=== PATIENT | male | born 1955 | race Caucasian/White ===

== ENCOUNTER 2018-04-30 06:07 | Emergency (ER) | payer BC, SELFPAY ==
[2018-04-30] MEDS ORDERED: ASPIRIN 81 MG CHEWABLE TABLET ONE (06:26)
[2018-04-30 06:36] LABS: Absolute Lymphocytes (CBC) 2.2 K/uL (0.7-4.9); Absolute Monocytes 0.5 K/uL (0.1-1.3); Absolute Neutrophil 9.8 K/uL (1.8-8.0); Basophils % 0.4 % (0-1.3); Eosinophils % 0.3 % (0-4.4); Hematocrit 44.9 % (39.6-49.0); Lymphocytes % 17.5 % (15.3-44.8); MCV 97.7 fL (80-100); MPV 7.8 fL (7.6-11.3); Monocytes % 4.1 % (3.3-12.3)
[2018-04-30 06:49] LABS: Protime INR 0.93
[2018-04-30 07:01] LABS: ALT/SGPT 62 U/L (12-78); AST/SGOT 35 U/L (15-37); BUN Blood Urea Nitrogen 15 mg/dL (7-18); Bicarbonate 23 mmol/L (21-32); Glucose Level 186 mg/dL (74-106); Potassium 3.9 mmol/L (3.5-5.1); Sodium Level 135 mmol/L (136-145)
[2018-04-30] MEDS ORDERED: HYDROCODONE/APAP 10/325 TAB ONE (07:01)
[2018-04-30 07:02] LABS: Albumin 4.1 g/dL (3.4-5.0); Alkaline Phosphatase 59 U/L (45-117); Bilirubin Direct 0.2 mg/dL (0-0.2); Bilirubin Total 0.7 mg/dL (0.2-1.0); CKMB Creatine Kinase MB < 1.0 ng/mL (0.3-3.6); Creatine Phosphokinase 99 U/L (39-308); Magnesium 2.1 mg/dL (1.8-2.4); NT PRO-BNP 211 pg/mL (<125); Protein, Total 7.7 g/dL (6.4-8.2)
[2018-04-30] MEDS ORDERED: ONDANSETRON 4 MG/2 ML VIAL ONE ×2 (07:16→08:11)
[2018-04-30] MEDS ORDERED: MORPHINE 4 MG/ML SYR ONE (08:11)
[2018-04-30] MEDS ORDERED: PANTOPRAZOLE 40 MG INJ ONE (08:12)
[2018-04-30] MEDS ORDERED: NA CHLORIDE 0.9% 1,000 ML ONE (08:12)
--- NOTE | 2018-04-30 08:40 | RAD REPORT ---
EXAM DESCRIPTION: CT - Abdomen Pelvis W Contrast - 04/30/2018 8:23 am CLINICAL HISTORY: Abdominal pain. Diarrhea for 4 weeks COMPARISON: none. TECHNIQUE: Computed axial tomography of the abdomen pelvis was obtained. 100 cc Isovue-300 was admin istered intravenously. Oral contrast was not requested which limits evaluation of bowel. All CT scans are performed using dose optimization technique as appropriate and may include automated exposure control or mA/KV adjustment according to patient size. FINDINGS: The liver, spleen, pancreas, adrenal and kidneys appear unremarkable. There is no evidence of diverticulitis. Postsurgical changes of a right inguinal hernia repair are present. Small left inguinal hernia contai ns fat. Small umbilical hernia is present. A small hiatal hernia is present IMPRESSION: No acute abnormality is displayed.
--- NOTE | 2018-04-30 08:41 | RAD REPORT ---
EXAM DESCRIPTION: Janie Single View04/30/2018 6:56 am CLINICAL HISTORY: Chest pain COMPARISON: 2016 FINDINGS: The lungs appear clear of acute infiltrate. The heart is normal size IMPRESSION: No acute abnormalities displayed
--- NOTE | 2018-04-30 08:41 | RAD REPORT ---
EXAM DESCRIPTION: US - Abdomen Exam Limited - 04/30/2018 8:19 am CLINICAL HISTORY: Abdominal pain. COMPARISON: None. FINDINGS: The gallbladder wall is not thickened. A gallstone is not seen. The biliary tree is normal caliber. IMPRESSION: Unremarkable gallbladder ultrasound.
[2018-04-30] MEDS ORDERED: DIPHENHYDRAMINE 50 MG/ML VIAL ONE ×2 (08:56→09:26)
--- NOTE | 2018-04-30 10:31 | ER ---
Nurse's Notes [facility] Name: Lanre Clifton Jr Age: 63 yrs Sex: Male : 1955 Arrival Date: 04/30/2018 Time: 06:08 Bed 6 Private MD: Joe Guaman T Diagnosis: Essential (primary) hypertension;Low back pain Presentation: 04/30 06:10 Presenting complaint: Patient states: that yesterday he got overheated. Now he is fc having high bp 212/107 at home, the shakes, body cramping and overall "feeling funny". Also having some chest pain. No nausea or vomiting. Transition of care: patient was not received from another setting of care. Onset of symptoms was April 29, 2018. Risk Assessment: Do you want to hurt yourself or someone else? Patient reports no desire to harm self or others. Initial Sepsis Screen: Does the patient meet any 2 criteria? No. Patient's initial sepsis screen is negative. Does the patient have a suspected source of infection? No. Patient's initial sepsis screen is negative. Care prior to arrival: Medication(s) given: ASA, 81 mg, x 2. 06:10 Method Of Arrival: Ambulatory 06:10 Acuity: INGRID 3 fc Triage Assessment: 06:31 General: Appears uncomfortable, Behavior is cooperative, anxious. Pain: Complains of ak1 pain in back pain, chest tightness. EENT: No signs and/or symptoms were reported regarding the EENT system. Neuro: No deficits noted. Cardiovascular: Parent/caregiver reports patient has had chest tightness. Respiratory: No deficits noted. GI: No signs and/or symptoms were reported involving the gastrointestinal system. : No signs and/or symptoms were reported regarding the genitourinary system. Derm: No signs and/or symptoms reported regarding the dermatologic system. 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 Alea Chappell NP notified, no new orders given at this time. Historical: - Allergies: :23 No Known Allergies; fc - PMHx: : Hypertension; fc - PSHx: 06:23 Appendectomy; Hernia repair; hand surg; fc - Immunization history:: Last tetanus immunization: up to date. - Social history:: Smoking status: Patient/guardian denies using tobacco. - Ebola Screening: : Patient negative for fever greater than or equal to 101.5 degrees Fahrenheit, and additional compatible Ebola Virus Disease symptoms Patient denies exposure to infectious person Patient denies travel to an Ebola-affected area in the 21 days before illness onset. Screenin:22 Abuse screen: Denies threats or abuse. Nutritional screening: No deficits noted. fc Tuberculosis screening: No symptoms or risk factors identified. Fall Risk None identified. Assessment: 06:35 Reassessment: No changes from previously documented assessment. see triage assessment. ak1 07:04 Reassessment: report given to Will MARS. ak1 07:17 General: Appears in no apparent distress. uncomfortable, Behavior is calm, cooperative, jb4 appropriate for age. Pain: Complains of pain in low back area and chest Pain does not radiate. Pain currently is 8 out of 10 on a pain scale. at worst was 10 out of 10 on a pain scale. Quality of pain is described as pressure, Pain began 1 day ago. Is continuous. Neuro: Level of Consciousness is awake, alert, obeys commands, Oriented to person, place, time, situation. Cardiovascular: Reports chest pain, Heart tones S1 S2 present Patient's skin is warm and dry. Respiratory: Airway is patent Respiratory effort is even, unlabored, Respiratory pattern is regular, symmetrical, Breath sounds are clear bilaterally. GI: Abdomen is round Bowel sounds present X 4 quads. Abdomen is tender to palpation X 4 quads. : No signs and/or symptoms were reported regarding the genitourinary system. EENT: No signs and/or symptoms were reported regarding the EENT system. Derm: Skin is intact, Skin is pink, warm \\T\\ dry. Musculoskeletal: Reports pain in low back area. 07:45 Reassessment: Patient and/or family updated on plan of care and expected duration. Pain jb4 level reassessed. Patient is alert, oriented x 3, equal unlabored respirations, skin warm/dry/pink. Pt reports decrease in nausea. 08:15 Reassessment: Pt taken to ultrasound. jb4 09:05 Reassessment: Patient and/or family updated on plan of care and expected duration. Pain jb4 level reassessed. Patient is alert, oriented x 3, equal unlabored respirations, skin warm/dry/pink. Pt reports feeling better after medication administration. Patient states feeling better. 09:20 Reassessment: Patient appears in no apparent distress at this time. Patient is alert, jb4 oriented x 3, equal unlabored respirations, skin warm/dry/pink. Pt reports a decrease in pain \\T\\ itching after morphine administration. Provider notified. See MAR for orders. 09:30 Reassessment: Patient appears in no apparent distress at this time. Patient is alert, jb4 oriented x 3, equal unlabored respirations, skin warm/dry/pink. Pt reports decrease in itching after Benadryl administration. Family at the bedside. 10:30 Reassessment: Patient and/or family updated on plan of care and expected duration. Pain jb4 level reassessed. Patient is alert, oriented x 3, equal unlabored respirations, skin warm/dry/pink. Patient states feeling better. Vital Signs: 06:10 BP 188 / 139; Pulse 67; Resp 20; Temp 99.2(O); Pulse Ox 97% on R/A; Weight 97.52 kg fc (R); Height 5 ft. 11 in. (180.34 cm) (R); Pain 7/10; 06:24 BP 188 / 96; Pulse 79; Resp 12; Pulse Ox 97% on R/A; lp1 06:38 BP 142 / 79; Pulse 68; Resp 12; Pulse Ox 97% on R/A; Pain 8/10; ak1 07:17 BP 166 / 97 RA; Pulse 63; Resp 13; Pulse Ox 98% on R/A; jb4 07:17 BP 169 / 93 LA; Pulse 63; Resp 19; Pulse Ox 99% on R/A; jb4 08:35 BP 163 / 87; Pulse 74; Resp 19; Pulse Ox 96% on R/A; Pain 10/10; jb4 09:00 BP 140 / 82; Pulse 62; Resp 15; Pulse Ox 97% on R/A; Pain 6/10; jb4 10:00 BP 156 / 78; Pulse 68; Resp 15; Pulse Ox 97% on R/A; jb4 06:10 Body Mass Index 29.99 (97.52 kg, 180.34 cm) fc 06:38 pt c/o back pain 04/27 ak1 ED Course: 06:08 Patient arrived in ED. al2 06:08 Joe Guaman MD is Private Physician. al2 06:10 [facility]. kb 06:10 Nathanael Ecohls MD is Attending Physician. kb 06:10 Yulissa Mancilla, RN is Primary Nurse. ak1 06:10 Arm band placed on Patient placed in an exam room, on a stretcher. fc 06:10 Patient has correct armband on for positive identification. Bed in low position. Call fc light in reach. Side rails up X 1. child monitor on. Pulse ox on. NIBP on. 06:20 Triage completed. fc 06:23 EKG done, by ED staff, reviewed by Nathanael Echols MD. fc 06:36 No provider procedures requiring assistance completed. Missed attempt(s): 20 gauge in ak1 left antecubital area. 06:36 Initial lab(s) drawn, by ED staff, sent to lab. Inserted saline lock: 20 gauge in right ak1 antecubital area, using aseptic technique. ,using aseptic technique. placed by Den Esteban Blood collected. Patient maintains SpO2 saturation greater than 95% on room air. 06:52 X-ray completed. Portable x-ray completed in exam room. Patient tolerated procedure kw well. 06:53 XRAY Chest (1 view) In Process Unspecified. EDMS 07:16 Lanre Gallo, RN is Primary Nurse. jb4 08:05 Radiology exam delayed due to pt needs med. jg1 08:10 Patient taken to ultrasound. via wheelchair. aa4 08:19 US Abdomen Limited In Process Unspecified. EDMS 08:20 Ultrasound completed. Patient moved to CT. aa4 08:21 CT completed. Patient tolerated procedure well. Patient moved to CT via wheelchair. sj Patient moved back from CT. 08:23 CT Abd/Pelvis - W/Contrast In Process Unspecified. EDMS 10:31 Joe Guaman MD is Referral Physician. kb 10:45 IV discontinued, intact, bleeding controlled. jb4 Administered Medications: 06:22 Drug: Aspirin Chewable Tablet 162 mg Route: PO; lp1 06:58 Follow up: Response: No adverse reaction ak1 06:58 Drug: [place] 10 mg-325 mg 1 tabs Route: PO; ak1 06:58 Follow up: Response: pt informed of wait time for medication effectivness ak1 07:15 Drug: Zofran 4 mg Route: IVP; Site: right antecubital; aa5 07:45 Follow up: Response: No adverse reaction jb4 08:35 Drug: NS 0.9% 1000 ml Route: IV; Rate: 1 bolus; Site: right antecubital; jb4 09:35 Follow up: Response: No adverse reaction; IV Status: Completed infusion jb4 08:37 Drug: Zofran 4 mg Route: IVP; Site: right antecubital; jb4 09:07 Follow up: Response: No adverse reaction jb4 08:40 Drug: ProTONIX 40 mg Route: IVP; Site: right antecubital; jb4 09:06 Follow up: Response: No adverse reaction jb4 08:49 Drug: morphine 4 mg Route: IVP; Site: right antecubital; jb4 09:06 Follow up: Response: No adverse reaction jb4 08:51 Drug: Benadryl 12.5 mg Route: IVP; Site: right antecubital; jb4 09:15 Follow up: Response: No adverse reaction jb4 09:25 Drug: Benadryl 12.5 mg Route: IVP; Site: right antecubital; jb4 09:55 Follow up: Response: No adverse reaction jb4 Outcome: 10:31 Discharge ordered by . kb 10:45 Discharged to home ambulatory. jb4 10:45 Condition: stable jb4 10:45 Discharge instructions given to patient, family, Instructed on discharge instructions, follow up and referral plans. medication usage, Demonstrated understanding of instructions, follow-up care, medications, Prescriptions given X 1. 11:04 Patient left the ED. aa5 Signatures: Dispatcher [employer] EDMS Sarai Chappell, BOTTOM PRESSER-C BOTTOM PRESSER-Erinn Zuniga Susan sj Chretien, Felicia RN RN Amber Pizarro aa4 Magalie Mcpherson RN RN aa5 Mikayla Sierra Laura, RN RN lp1 Yulissa Mancilla RN RN ak1 Lanre Gallo RN RN jb4 Macie Mtz2 Corrections: (The following items were deleted from the chart) 07:28 07:17 BP 169 / 93 L Arm; jb4 jb4 07:17 BP 166 / 97 R Arm; jb4 jb4 09:00 08:39 morphine 4 mg IVP in right antecubital jb4 jb4
--- NOTE | 2018-04-30 10:31 | EDPHYS ---
Physician Documentation [facility] Name: Lanre Clifton Jr Age: 63 yrs Sex: Male : 1955 Arrival Date: 04/30/2018 Time: 06:08 Bed 6 Private MD: Joe Guaman T ED Physician Nathanael Echols HPI: 04/30 06:19 This 63 yrs old Male presents to ER via Unassigned with complaints of High kb Blood Pressure. 06:19 The patient has elevated blood pressure and discovered this at home, with a home kb device. Onset: The symptoms/episode began/occurred this morning. Associated signs and symptoms: Pertinent positives: chest pain, Pertinent negatives: dizziness, dyspnea, headache, lightheadedness, nausea, visual changes, vomiting, weakness. Severity of symptoms: At its worst the blood pressure was moderate, 212 mm Hg, in the emergency department the blood pressure is improved, 188 mm Hg. The patient has experienced a previous episode. The patient has not recently seen a physician. Pt states he got overheated at work yesterday morning and felt bad since then. Reports he was still feeling bad this morning, checked his bp and it was 212/107. 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 Pt states he feels uncomfortable throughout his whole body including his chest. PCP is Dr Guaman. Historical: - Allergies: 06:23 No Known Allergies; fc - PMHx: 06:23 Hypertension; fc - PSHx: 06:23 Appendectomy; Hernia repair; hand surg; fc - Immunization history:: Last tetanus immunization: up to date. - Social history:: Smoking status: Patient/guardian denies using tobacco. - Ebola Screening: : Patient negative for fever greater than or equal to 101.5 degrees Fahrenheit, and additional compatible Ebola Virus Disease symptoms Patient denies exposure to infectious person Patient denies travel to an Ebola-affected area in the 21 days before illness onset. ROS: 06:19 ENT: Negative for injury, pain, and discharge, Neck: Negative for injury, pain, and kb swelling, Respiratory: Negative for shortness of breath, cough, wheezing, and pleuritic chest pain, Abdomen/GI: Negative for abdominal pain, nausea, vomiting, diarrhea, and constipation, Back: Negative for injury and pain, MS/Extremity: Negative for injury and deformity, Skin: Negative for injury, rash, and discoloration, Neuro: Negative for headache, weakness, numbness, and seizure. 06:19 Constitutional: Positive for body aches, Negative for chills, fatigue, fever, malaise, poor PO intake, weight loss. 06:19 Cardiovascular: Positive for chest pain, Negative for edema, orthopnea, palpitations, paroxysmal nocturnal dyspnea. Exam: 06:19 Head/Face: Normocephalic, atraumatic. Neck: Trachea midline, no thyromegaly or masses kb palpated, and no cervical lymphadenopathy. Supple, full range of motion without nuchal rigidity, or vertebral point tenderness. No Meningismus. Chest/axilla: Normal chest wall appearance and motion. Nontender with no deformity. No lesions are appreciated. Cardiovascular: Regular rate and rhythm with a normal S1 and S2. No gallops, murmurs, or rubs. Normal PMI, no JVD. No pulse deficits. Respiratory: Lungs have equal breath sounds bilaterally, clear to auscultation and percussion. No rales, rhonchi or wheezes noted. No increased work of breathing, no retractions or nasal flaring. Abdomen/GI: Soft, non-tender, with normal bowel sounds. No distension or tympany. No guarding or rebound. No evidence of tenderness throughout. Skin: Warm, dry with normal turgor. Normal color with no rashes, no lesions, and no evidence of cellulitis. MS/ Extremity: Pulses equal, no cyanosis. Neurovascular intact. Full, normal range of motion. Neuro: Awake and alert, GCS 15, oriented to person, place, time, and situation. Cranial nerves II-XII grossly intact. Motor strength 5/5 in all extremities. Sensory grossly intact. Cerebellar exam normal. Normal gait. 06:19 Constitutional: The patient appears alert, awake, anxious. Vital Signs: 06:10 BP 188 / 139; Pulse 67; Resp 20; Temp 99.2(O); Pulse Ox 97% on R/A; Weight 97.52 kg fc (R); Height 5 ft. 11 in. (180.34 cm) (R); Pain 7/10; 06:24 BP 188 / 96; Pulse 79; Resp 12; Pulse Ox 97% on R/A; lp1 06:38 BP 142 / 79; Pulse 68; Resp 12; Pulse Ox 97% on R/A; Pain 8/10; ak1 07:17 BP 166 / 97 RA; Pulse 63; Resp 13; Pulse Ox 98% on R/A; jb4 07:17 BP 169 / 93 LA; Pulse 63; Resp 19; Pulse Ox 99% on R/A; jb4 08:35 BP 163 / 87; Pulse 74; Resp 19; Pulse Ox 96% on R/A; Pain 10/10; jb4 09:00 BP 140 / 82; Pulse 62; Resp 15; Pulse Ox 97% on R/A; Pain 6/10; jb4 10:00 BP 156 / 78; Pulse 68; Resp 15; Pulse Ox 97% on R/A; jb4 06:10 Body Mass Index 29.99 (97.52 kg, 180.34 cm) fc 06:38 pt c/o back pain 04/27 ak1 MDM: 06:10 Patient medically screened. kb 06:26 Data reviewed: vital signs, nurses notes. Data interpreted: Pulse oximetry: on room air kb is 97 %. Interpretation: normal. 06:29 ED course: Pt now reports he has chronic back pain from being trampled by a bull kb several years ago. States the pain has been worse since he stepped in a hole while he was at work yesterday and is 8/10 currently.. 07:18 ED course: Pt reports pain across upper abd and lower back. Denies any other pain. Abd kb pain started 20 minutes ago, denies having the pain when he arrived. Tenderness now noted upon palpation of upper abd. Pt described pain as a fullness, "like after you eat too much.". 08:52 ED course: Pt reports he is feeling better, pain is decreased. Getting morphine now. kb 10:28 Counseling: I had a detailed discussion with the patient and/or guardian regarding: the kb historical points, exam findings, and any diagnostic results supporting the discharge/admit diagnosis, lab results, radiology results, the need for outpatient follow up, a family practitioner, to return to the emergency department if symptoms worsen or persist or if there are any questions or concerns that arise at home. ED course: Pt reports he only has pain in his back now. Does not have any other complaints. Reports he made an appt with his PCP for tomorrow and is ready to go home. . 04/30 06:17 Order name: Basic Metabolic Panel; Complete Time: 07:05 kb 04/30 06:17 Order name: CBC with Diff; Complete Time: 06:47 kb 04/30 06:17 Order name: Ckmb; Complete Time: 07:05 kb 04/30 06:17 Order name: CPK; Complete Time: 07:05 kb 04/30 06:17 Order name: LFT's; Complete Time: 07:05 kb 04/30 06:17 Order name: Magnesium; Complete Time: 07:05 kb 04/30 06:17 Order name: NT PRO-BNP; Complete Time: 07:05 kb 04/30 06:17 Order name: PT-INR; Complete Time: 06:52 kb 04/30 06:17 Order name: Ptt, Activated; Complete Time: 06:52 kb 04/30 06:17 Order name: Troponin (emerg Dept Use Only); Complete Time: 07:00 kb 04/30 06:17 Order name: XRAY Chest (1 view); Complete Time: 08:41 kb 04/30 07:41 Order name: CT Abd/Pelvis - W/Contrast; Complete Time: 08:41 kb 04/30 07:50 Order name: Lipase; Complete Time: 08:21 sony 04/30 07:51 Order name: US Abdomen Limited; Complete Time: 08:41 sony 04/30 06:17 Order name: EKG; Complete Time: 06:19 kb 04/30 06:17 Order name: Cardiac monitoring; Complete Time: 06:24 kb 04/30 06:17 Order name: EKG - Nurse/Tech; Complete Time: 06:24 kb 04/30 06:17 Order name: IV Saline Lock; Complete Time: 06:26 kb 04/30 06:17 Order name: Labs collected and sent; Complete Time: 06:24 kb 04/30 06:17 Order name: O2 Per Protocol; Complete Time: 06:24 kb 04/30 06:17 Order name: O2 Sat Monitoring; Complete Time: 06:23 kb Administered Medications: 06:22 Drug: Aspirin Chewable Tablet 162 mg Route: PO; lp1 06:58 Follow up: Response: No adverse reaction ak1 06:58 Drug: [place] 10 mg-325 mg 1 tabs Route: PO; ak1 06:58 Follow up: Response: pt informed of wait time for medication effectivness ak1 07:15 Drug: Zofran 4 mg Route: IVP; Site: right antecubital; aa5 07:45 Follow up: Response: No adverse reaction jb4 08:35 Drug: NS 0.9% 1000 ml Route: IV; Rate: 1 bolus; Site: right antecubital; jb4 09:35 Follow up: Response: No adverse reaction; IV Status: Completed infusion jb4 08:37 Drug: Zofran 4 mg Route: IVP; Site: right antecubital; jb4 09:07 Follow up: Response: No adverse reaction jb4 08:40 Drug: ProTONIX 40 mg Route: IVP; Site: right antecubital; jb4 09:06 Follow up: Response: No adverse reaction jb4 08:49 Drug: morphine 4 mg Route: IVP; Site: right antecubital; jb4 09:06 Follow up: Response: No adverse reaction jb4 08:51 Drug: Benadryl 12.5 mg Route: IVP; Site: right antecubital; jb4 09:15 Follow up: Response: No adverse reaction jb4 09:25 Drug: Benadryl 12.5 mg Route: IVP; Site: right antecubital; jb4 09:55 Follow up: Response: No adverse reaction jb4 Disposition: 04/30/18 10:31 Discharged to Home. Impression: Essential (primary) hypertension, Low back pain. - Condition is Stable. - Discharge Instructions: Hypertension, [id number], Back Pain, Adult, [id number]. - Prescriptions for Diclofenac Sodium 75 mg Oral Tablet Sustained Release - take 1 tablet by ORAL route 2 times per day; 30 tablet. - Medication Reconciliation Form, Thank You Letter, Antibiotic Education, Prescription Opioid Use, Work release form form. - Follow up: Emergency Department; When: As needed; Reason: Worsening of condition. Follow up: Joe Guaman MD; When: Tomorrow; Reason: Recheck today's complaints, Continuance of care, Re-evaluation by your physician. Addendum: 05/03/2018 18:36 Co-signature as Attending Physician, Nathanael Echols MD. g s Signatures: Dispatcher [employer] EDSarai Reid, MASON-C REEL STRIPPER-Ezequiel Perez MD MD cha Chretien, Felicia, RN RN Maaglie Mcpherson, RN RN aa5 Anais Juarez, RN RN lp1 Yulissa Mancilla, RN RN ak1 Lanre Gallo, RN RN jb4 Nathanael Echols MD MD gs Corrections: (The following items were deleted from the chart) 04/30 06:28 06:19 Pt states he got overheated at work yesterday morning and felt bad since then. kb Reports he was still feeling bad this morning, checked his bp and it was 212/107. 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 Pt states he feels uncomfortable throughout his whole body including his chest. 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 States the pain has been worse since he was at work yesterday and is 8/10 currently.. kb 11:04 10:31 04/30/2018 10:31 Discharged to Home. Impression: Essential (primary) aa5 hypertension; Low back pain. Condition is Stable. Forms are Medication Reconciliation Form, Thank You Letter, Antibiotic Education, Prescription Opioid Use. Follow up: Emergency Department; When: As needed; Reason: Worsening of condition. Follow up: Joe Guaman; When: Tomorrow; Reason: Recheck today's complaints, Continuance of care, Re-evaluation by your physician. kb
[2018-04-30 11:13] VITALS: TEMP 99.2
[2018-04-30 11:19] VITALS: O2SAT 97
[2018-04-30 11:20] VITALS: BP 156/78
--- NOTE | 2018-04-30 12:40 | EKG ---
Test Date: 2018-04-30 Test Time: 06:19:16 Log Scaler: LISSET MEASUREMENT RESULTS: Intervals: Rate: 70 TN: 124 QRSD: 102 QT: 386 QTc: 416 [place]: P: 38 TN: 124 QRS: 62 T: 29 INTERPRETIVE STATEMENTS: Normal sinus rhythm Normal ECG Compared to ECG 09/20/2015 05:35:08 Sinus bradycardia no longer present Electronically Signed On 04-30-18 12:39:52 CDT by David Whitaker
== END 2018-04-30 11:04 | disposition home or self-care (01) ==
LOC: ER 06:07
DX: I10 Essential (primary) hypertension (principal); M54.5 Low back pain
CPT/HCPCS: 36415; 71045; 74177; 76705; 80048; 80076; 82550; 82553; 83690; 83735; 83880; 84484; 85025; 85610; 85730; 93005; 96361; 96374; 96375; 99285; C9113; J2405; J7030; Q9967

== ENCOUNTER 2019-12-03 10:17 | Emergency (ER) | payer OTHER, SELFPAY ==
[2019-12-03 13:11] LABS: Urine Blood NEGATIVE (NEG); Urine Glucose NEGATIVE (NEG); Urine Protein NEGATIVE (NEG); Urine Specific Gravity 1.025 (1.005-1.030); Urine pH 8.5 (5.0-7.0)
[2019-12-03 13:21] LABS: Urine Bacteria >50 /HPF (NONE SEEN)
[2019-12-03 13:22] LABS: Urine Amorphous Sediment 3+ /HPF (NONE SEEN); Urine Culture Reflex Order NOT NEEDED
--- NOTE | 2019-12-03 13:25 | RAD REPORT ---
EXAM DESCRIPTION: CT - Stone Protocol - 12/03/2019 1:14 pm CLINICAL HISTORY: Flank pain. FLANK PAIN COMPARISON: Abdomen Pelvis W Contrast dated 04/30/2018 TECHNIQUE: Axial images were obtained without oral or IV contrast. Lack of contrast limits solid org an and vascular assessment. The [id number] spans the entirety of the system partially obscuring uppermost abdomen and lung bases. Coronal reformatted images were obtained and reviewed. All CT scans are performed using dose optimization technique as appropriate and may include automated exposure control or mA/KV adjustment according to patient size. FINDINGS: The lower lung cantrell are clear. Imaged portions of the liver and spleen show no suspicious findings on non-contrast imaging. The panc reas and adrenal glands are normal. No pathologic lymphadenopathy in the abdomen or pelvis. No urinary tract stones or obstructive uropathy. No bowel obstruction, free air, free fluid or abscess. The appendix is not identified as a discrete s tructure, however, no secondary findings of appendicitis are identified. Bilateral fat containing ing uinal hernias, slightly larger on the left. Moderate lower lumbar spondylosis. IMPRESSION: No urinary tract stones or obstructive uropathy. Bilateral fat containing inguinal hernias, slightly larger the left.
[2019-12-03] MEDS ORDERED: KETOROLAC 30 MG/ML INJ ONE (13:40)
--- NOTE | 2019-12-03 13:54 | EDPHYS ---
Physician Documentation [facility] Name: Lanre Clifton Jr Age: 64 yrs Sex: Male : 1955 Arrival Date: 12/03/2019 Time: 10:19 Bed 17 Private MD: Joe Guaman T ED Physician Yves Orr HPI: 12/02 15:40 This 64 yrs old Male presents to ER via Ambulatory with complaints of Back kb Pain. 15:40 The patient presents with pain that is acute, with no known mechanism of injury, and kb tenderness. The symptoms are located in the left mid back. Onset: The symptoms/episode began/occurred 2 week(s) ago. The pain does not radiate. Associated signs and symptoms: Pertinent positives: foul smelling and cloudy urine. The problem was sustained without known cause. Modifying factors: The patient symptoms are alleviated by nothing, the patient symptoms are aggravated by walking. Severity of symptoms: At their worst the symptoms were moderate, in the emergency department the symptoms are unchanged. The patient has not experienced similar symptoms in the past. The patient has not recently seen a physician. Pt reports back pain that started 2 weeks ago. States "The more I work, the more it hurts". Historical: - Allergies: 11:02 No Known Allergies; ca1 - PMHx: 11:02 Hypertension; High Cholesterol; ca1 - PSHx: 11:02 Appendectomy; Hernia repair; hand surg; ca1 ROS: 15:39 Constitutional: Negative for fever, chills, and weight loss, Neck: Negative for injury, kb pain, and swelling, Cardiovascular: Negative for chest pain, palpitations, and edema, Respiratory: Negative for shortness of breath, cough, wheezing, and pleuritic chest pain, Abdomen/GI: Negative for abdominal pain, nausea, vomiting, diarrhea, and constipation, MS/Extremity: Negative for injury and deformity, Skin: Negative for injury, rash, and discoloration, Neuro: Negative for headache, weakness, numbness, tingling, and seizure. 15:39 Back: Positive for pain with movement, of the left mid back. 15:39 : Positive for foul smelling urine, cloudy urine. Exam: 15:37 Constitutional: This is a well developed, well nourished patient who is awake, alert, kb and in no acute distress. Head/Face: Normocephalic, atraumatic. Chest/axilla: Normal chest wall appearance and motion. Nontender with no deformity. No lesions are appreciated. Cardiovascular: Regular rate and rhythm with a normal S1 and S2. No gallops, murmurs, or rubs. Normal PMI, no JVD. No pulse deficits. Respiratory: Lungs have equal breath sounds bilaterally, clear to auscultation and percussion. No rales, rhonchi or wheezes noted. No increased work of breathing, no retractions or nasal flaring. Abdomen/GI: Soft, non-tender, with normal bowel sounds. No distension or tympany. No guarding or rebound. No evidence of tenderness throughout. Skin: Warm, dry with normal turgor. Normal color with no rashes, no lesions, and no evidence of cellulitis. MS/ Extremity: Pulses equal, no cyanosis. Neurovascular intact. Full, normal range of motion. Neuro: Awake and alert, GCS 15, oriented to person, place, time, and situation. Cranial nerves II-XII grossly intact. Motor strength 5/5 in all extremities. Sensory grossly intact. Cerebellar exam normal. Normal gait. 15:37 Back: pain, that is moderate, of the left mid back, ROM is painful, normal spinal alignment noted. 15:43 Neuro: Exam negative for kb Vital Signs: 11:00 BP 143 / 93; Pulse 91; Resp 15 S; Temp 98(TE); Pulse Ox 98% on R/A; Weight 94.35 kg ca1 (R); Height 5 ft. 11 in. (180.34 cm) (R); Pain 8/10; 11:00 Body Mass Index 29.01 (94.35 kg, 180.34 cm) ca1 MDM: 12:54 Patient medically screened. kb 15:37 Data reviewed: vital signs, nurses notes. Data interpreted: Pulse oximetry: on room air kb is 98 %. Interpretation: normal. Counseling: I had a detailed discussion with the patient and/or guardian regarding: the historical points, exam findings, and any diagnostic results supporting the discharge/admit diagnosis, lab results, radiology results, the need for outpatient follow up, a urologist, to return to the emergency department if symptoms worsen or persist or if there are any questions or concerns that arise at home. 12/02 12:55 Order name: Urine Microscopic Only; Complete Time: 13:24 em 12/02 12:55 Order name: Urine Culture em 12/02 12:57 Order name: Urine Dipstick--Ancillary (enter results); Complete Time: 13:14 bd 12/02 13:00 Order name: CT Stone Protocol; Complete Time: 13:28 kb 12/02 12:55 Order name: Urine Dipstick-Ancillary (obtain specimen); Complete Time: 12:55 em Administered Medications: 13:38 Drug: TORadol 30 mg Route: IM; Site: right deltoid; em 14:00 Follow up: Response: No adverse reaction; Marked relief of symptoms; Pain is decreased em 14:09 Drug: Cipro 500 mg Route: PO; em 14:15 Follow up: Response: Medication administered at discharge. em Disposition: 15:59 Co-signature as Attending Physician, Yves Orr MD. rn Disposition: 12/03/19 13:53 Discharged to Home. Impression: Urinary tract infection, site not specified, Mid back pain. - Condition is Stable. - Discharge Instructions: Musculoskeletal Pain, Urinary Tract Infection, Adult, [id number]. - Prescriptions for Cipro 500 mg Oral Tablet - take 1 tablet by ORAL route every 12 hours for 10 days; 20 tablet. Cyclobenzaprine 10 mg Oral Tablet - take 1 tablet by ORAL route every 8 hours As needed; 21 tablet. Diclofenac Sodium 75 mg Oral Tablet, Delayed Release (E.C.) - take 1 tablet by ORAL route 2 times per day As needed; 30 tablet. - Medication Reconciliation Form, Thank You Letter, Antibiotic Education, Prescription Opioid Use form. - Follow up: Emergency Department; When: As needed; Reason: Worsening of condition. Follow up: Joe Guaman MD; When: 2 - 3 days; Reason: Recheck today's complaints, Continuance of care, Re-evaluation by your physician. Follow up: Nasrin Ramey MD; When: 2 - 3 days; Reason: Recheck today's complaints. Signatures: Dispatcher [employer] Sarai Slater, IVONNE CUEVAS-Christofer Harding, RN RN em Yves Orr MD MD rn ChapincitoobKarla RN RN ca1 Corrections: (The following items were deleted from the chart) 13:53 13:53 12/03/2019 13:53 Discharged to Home. Impression: Urinary tract infection, site kb not specified. Condition is Stable. Forms are Medication Reconciliation Form, Thank You Letter, Antibiotic Education, Prescription Opioid Use. Follow up: Emergency Department; When: As needed; Reason: Worsening of condition. Follow up: Joe Guaman; When: 2 - 3 days; Reason: Recheck today's complaints, Continuance of care, Re-evaluation by your physician. kb 13:54 13:53 12/03/2019 13:53 Discharged to Home. Impression: Urinary tract infection, site kb not specified. Condition is Stable. Discharge Instructions: Urinary Tract Infection, Adult, [id number]. Prescriptions for Cipro 500 mg Oral Tablet - take 1 tablet by ORAL route every 12 hours for 10 days; 20 tablet. and Forms are Medication Reconciliation Form, Thank You Letter, Antibiotic Education, Prescription Opioid Use. Follow up: Emergency Department; When: As needed; Reason: Worsening of condition. Follow up: Joe Guaman; When: 2 - 3 days; Reason: Recheck today's complaints, Continuance of care, Re-evaluation by your physician. Follow up: Nasrin Ramey; When: 2 - 3 days; Reason: Recheck today's complaints. kb 14:22 13:54 12/03/2019 13:53 Discharged to Home. Impression: Urinary tract infection, site em not specified; Mid back pain. Condition is Stable. Discharge Instructions: Urinary Tract Infection, Adult, [id number]. Prescriptions for Cipro 500 mg Oral Tablet - take 1 tablet by ORAL route every 12 hours for 10 days; 20 tablet. and Forms are Medication Reconciliation Form, Thank You Letter, Antibiotic Education, Prescription Opioid Use. Follow up: Emergency Department; When: As needed; Reason: Worsening of condition. Follow up: Joe Guaman; When: 2 - 3 days; Reason: Recheck today's complaints, Continuance of care, Re-evaluation by your physician. Follow up: Nasrin Ramey; When: 2 - 3 days; Reason: Recheck today's complaints. kb
--- NOTE | 2019-12-03 13:54 | ER ---
Nurse's Notes [facility] Name: Lanre Clifton Jr Age: 64 yrs Sex: Male : 1955 Arrival Date: 12/03/2019 Time: 10:19 Bed 17 Private MD: Joe Guaman T Diagnosis: Urinary tract infection, site not specified;Mid back pain Presentation: 12/02 11:00 Chief complaint: Patient states: L flank pain x 2 weeks ago. Hurts more when moving and ca1 walking. Coronavirus screen: The patient has NOT traveled to a country currently being monitored by the [facility] within the last 14 days. The patient has NOT had contact with any known and/or suspected case of coronavirus. Ebola Screen: Patient negative for fever greater than or equal to 101.5 degrees Fahrenheit, and additional compatible Ebola Virus Disease symptoms Patient denies exposure to infectious person. Patient denies travel to an Ebola-affected area in the 21 days before illness onset. No symptoms or risks identified at this time. Initial Sepsis Screen: Does the patient meet any 2 criteria? No. Patient's initial sepsis screen is negative. Does the patient have a suspected source of infection? No. Patient's initial sepsis screen is negative. Risk Assessment: Do you want to hurt yourself or someone else? Patient reports no desire to harm self or others. Onset of symptoms was December 03, 2019. 11:00 Method Of Arrival: Ambulatory ca1 11:00 Acuity: INGRID 3 ca1 Historical: - Allergies: 11:02 No Known Allergies; ca1 - PMHx: 11:02 Hypertension; High Cholesterol; ca1 - PSHx: 11:02 Appendectomy; Hernia repair; hand surg; ca1 Screenin:50 Abuse screen: Denies threats or abuse. Nutritional screening: No deficits noted. em Tuberculosis screening: No symptoms or risk factors identified. Fall Risk None identified. Assessment: 12:50 General: Appears in no apparent distress. uncomfortable, Behavior is calm, cooperative, em Denies fever. Pain: Complains of pain in left mid back Pain currently is 8 out of 10 on a pain scale. Quality of pain is described as sharp, shooting, Pain began 2 weeks ago. Neuro: Level of Consciousness is awake, alert, obeys commands, Oriented to person, place, time, situation, Appropriate for age. Cardiovascular: Capillary refill < 3 seconds Patient's skin is warm and dry. Respiratory: Airway is patent Respiratory effort is even, unlabored, Respiratory pattern is regular, symmetrical. GI: Abdomen is flat, Patient currently denies nausea, vomiting. : Reports burning with urination, since 2 weeks ago. Derm: Skin is intact, is healthy with good turgor, Skin is pink, warm \T\ dry. Musculoskeletal: Capillary refill < 3 seconds, Range of motion: intact in all extremities. 14:00 Reassessment: Patient appears in no apparent distress at this time. Patient and/or em family updated on plan of care and expected duration. Pain level reassessed. Patient is alert, oriented x 3, equal unlabored respirations, skin warm/dry/pink. rates pain 7/10 Patient states feeling better. Vital Signs: 11:00 BP 143 / 93; Pulse 91; Resp 15 S; Temp 98(TE); Pulse Ox 98% on R/A; Weight 94.35 kg ca1 (R); Height 5 ft. 11 in. (180.34 cm) (R); Pain 8/10; 11:00 Body Mass Index 29.01 (94.35 kg, 180.34 cm) ca1 ED Course: 10:19 Patient arrived in ED. rg4 10:19 Joe Guaman MD is Private Physician. rg4 11:02 Triage completed. ca1 11:02 Arm band placed on right wrist. ca1 12:54 Christofer Montero, RN is Primary Nurse. em 12:54 Sar[facility] Chappell F[facility]-C [facility]. kb 12:54 Yves Orr MD is Attending Physician. kb 13:15 CT Stone Protocol In Process Unspecified. EDMS 13:53 Joe Guaman MD is Referral Physician. kb 13:53 Nasrin Ramey MD is Referral Physician. kb 14:22 No provider procedures requiring assistance completed. Patient did not have IV access em during this emergency room visit. Administered Medications: 13:38 Drug: TORadol 30 mg Route: IM; Site: right deltoid; em 14:00 Follow up: Response: No adverse reaction; Marked relief of symptoms; Pain is decreased em 14:09 Drug: Cipro 500 mg Route: PO; em 14:15 Follow up: Response: Medication administered at discharge. em Outcome: 13:53 Discharge ordered by . kb 14:22 Discharged to home ambulatory. em 14:22 Condition: good 14:22 Discharge instructions given to patient, Instructed on discharge instructions, follow up and referral plans. no drinking with medication, no driving heavy equipment, medication usage, Demonstrated understanding of instructions, follow-up care, medications, Prescriptions given X 3. 14:22 Patient left the ED. em Addendum: 12/09/2019 08:55 Addendum: Culture Results: Positive urine culture. No further action required. Bacteria s s sensitive to prescribed antibiotic. Phone call Attempt #1 Called and spoke with patient who reports he is feeling much better. Has followed up with his PCP already and states that his symptoms have improved greatly. Signatures: Dispatcher [employer] Sarai Slater, [employer] DEF[employer] OFFICER-C [employer] CONTROL OFFICER-Christofer Harding, RN RN Willow Edwards, Chuyita Liang RN rg4 Karla Morrison RN RN ca1
[2019-12-03] MEDS ORDERED: CIPROFLOXACIN HCL 500 MG TAB ONE (14:16)
== END 2019-12-03 14:22 | disposition home or self-care (01) ==
LOC: ER 10:17
DX: N39.0 Urinary tract infection, site not specified (principal); M54.89 Other dorsalgia
CPT/HCPCS: 74176; 76377; 81003; 81015; 87077; 87086; 87088; 87186; 96372; 99283

== ENCOUNTER 2021-04-15 16:32 | Emergency (ER) | payer OTHER ==
[2021-04-15] MEDS ORDERED: FENTANYL CITR 100 MCG/2 ML ONE ×2 (17:15→18:26)
[2021-04-15] MEDS ORDERED: ONDANSETRON 4 MG/2 ML VIAL ONE (17:16)
[2021-04-15 17:30] LABS: Absolute Lymphocytes (CBC) 2.2 K/uL (0.7-4.9); Basophils % 0.9 % (0-1.3); Hematocrit 39.2 % (39.6-49.0); Lymphocytes % 25.8 % (15.3-44.8); RBC Red Blood Cell Count 4.03 M/uL (4.33-5.43)
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
[2021-04-15] MEDS ORDERED: NA CHLORIDE 0.9% 1,000 ML ONE (17:32)
[2021-04-15 17:34] LABS: ALT/SGPT 53 U/L (12-78); AST/SGOT 29 U/L (15-37); Albumin 3.7 g/dL (3.4-5.0); Alkaline Phosphatase 57 U/L (45-117); BUN Blood Urea Nitrogen 13 mg/dL (7-18); Bicarbonate 26 mmol/L (21-32); Bilirubin Direct 0.2 mg/dL (0-0.2); Bilirubin Total 0.5 mg/dL (0.2-1.0); Glucose Level 107 mg/dL (74-106); NT PRO-BNP 34 pg/mL (<125); Potassium 4.2 mmol/L (3.5-5.1); Protein, Total 7.6 g/dL (6.4-8.2); Sodium Level 140 mmol/L (136-145); Troponin (Emerg Dept Use Only) < 0.02 ng/mL (0.0-0.045)
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
--- NOTE | 2021-04-15 17:34 | RAD REPORT ---
EXAM DESCRIPTION: RAD - Chest Single View - 04/15/2021 5:13 pm CLINICAL HISTORY: COUGH COMPARISON: Chest Single View dated 04/30/2018; CHEST PA AND LAT 2 VIEW dated 09/19/2015; CHEST SINGLE VIEW dated 02/13/2014; CHEST PA AND LAT 2 VIEW dated 04/26/2009 FINDINGS: No evidence of edema or pneumonia. The heart size is within normal limits.No acute osseous abnormality. No significant pleural effusions or pneumothorax. IMPRESSION: No acute cardiopulmonary disease.
[2021-04-15 17:37] LABS: Protime INR 0.94
--- NOTE | 2021-04-15 17:47 | RAD REPORT ---
EXAM DESCRIPTION: CT - Head C Spine Cap W Con - 04/15/2021 5:29 pm COMPARISON: None. TECHNIQUE: Axial [address] head images were obtained. Axial [address] cervical spine images were obtaine d with sagittal and coronal reconstruction images reviewed. During dynamic enhancement of 100mL non-i onic contrast, axial 5 mm images of the chest, abdomen and pelvis were obtained. All CT scans are performed using dose optimization technique as appropriate and may include automated exposure control or mA/KV adjustment according to patient size. FINDINGS: No intracranial hemorrhage, mass or edema. No midline shift or abnormal fluid collection. No skull fracture. No fracture or traumatic malalignment of the cervical spine. Multilevel cervical spondylosis with jose jose degrees of neural foraminal narrowing. Vertebral body heights are maintained. No definite centra l spinal stenosis. CT chest shows no pneumothorax, pulmonary contusion or pleural fluid collection. No mediastinal hemat raghav and the aorta and pulmonary arteries are unremarkable. No chest will mass or abnormal axillary fi nding. No displaced rib fracture or other significant bony finding. Scattered coronary artery calcif ications. CT abdomen and pelvis show no injury to solid abdominal viscera. Gallbladder and biliary tree are unr emarkable. No bowel injury or significant finding. No free air, free fluid or abnormal stranding. No urinary bladder abnormality. Subcentimeter left renal lesion which is statistically benign. Remote left-sided rib fractures. Fat containing left inguinal hernia. Prior right inguinal hernia rep air. IMPRESSION: No significant CT Head finding. No acute fracture or traumatic malalignment cervical spine. No evidence of significant trauma to the chest, abdomen, or pelvis.
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
[2021-04-15] MEDS ORDERED: KETOROLAC 30 MG/ML INJ ONE (18:26)
[2021-04-15 18:54] LABS: White Blood Cell Scan OK (OK)
[2021-04-15 18:55] LABS: Blood Morphology Comment NOT SEEN (NOT SEEN); Platelet Estimate ADEQ
[2021-04-16 01:14] VITALS: TEMP 98.9
[2021-04-16 01:16] VITALS: BP 129/83; O2SAT 99
== END 2021-04-15 18:41 | disposition home or self-care (01) ==
LOC: ER 16:32
DX: S16.1XXA Strain of muscle, fascia and tendon at neck level, initial encounter (principal); S70.02XA Contusion of left hip, initial encounter; V02.99XA Pedestrian with other conveyance injured in collision with two- or three-wheeled motor vehicle, unspecified whether traffic or nontraffic accident, initial encounter; I10 Essential (primary) hypertension
CPT/HCPCS: 85025; 80048; 36415; 83735; 85610; 80076; 84484; 83880; 70450; 72125; 71260; 74177; 71045; 72170; 73502; 73552; 96375; 96374; 99285; Q9967; J3010 ×2; J7030; J2405; G0390

== ENCOUNTER 2023-02-09 01:20 | Emergency (ER) | payer OTHER ==
--- OUTSIDE RECORDS SUMMARY | 2023-02-09 01:35 | XMS REPORT | Continuity of Care Document ---
:1955 Author Organization [facility] t Address [address] [facility] [address] [place] [id number] Care Team Providers Name Role Phone Unavailable Unavailable Unavailable Payers Payer Name Policy Type Policy Number Effective Date Expiration Date S [facility] 2022 (MEDICARE 00:00:00 REPLACEMENT HMO) Problems This patient has no known problems. Allergies, Adverse Reactions, Alerts This patient has no known allergies or adverse reactions. Medications This patient has no known medications. Procedures This patient has no known procedures. Encounters Start End Encounter Admission Attending Care Care Encounter Source Date/Time Date/Time Type Type Clinicians Facility Department ID 2022-07-27 2022-07-27 Outpatient [facility] [id number] [facility] 00:00:00 00:00:00 [id number] [facility] Results This patient has no known results.
[2023-02-09] MEDS ORDERED: MORPHINE 4 MG/ML SYR ONE (02:04)
[2023-02-09] MEDS ORDERED: ONDANSETRON 4 MG/2 ML VIAL ONE (02:04)
[2023-02-09 02:11] LABS: Protime INR 0.92
[2023-02-09 02:12] LABS: Absolute Lymphocytes (CBC) 4.5 K/uL (0.7-4.9); Hematocrit 45.4 % (39.6-49.0); Lymphocytes % 35.3 % (15.3-44.8); MCV 95.6 fL (80-100); MPV 7.6 fL (7.6-11.3); RBC Red Blood Cell Count 4.75 M/uL (4.33-5.43)
[2023-02-09 02:26] LABS: Bilirubin Direct 0.2 mg/dL (0-0.2); Bilirubin Indirect, Calculated 0.7 mg/dL (0.2-0.8); Bilirubin Total 0.9 mg/dL (0.2-1.0); Potassium 3.9 mEq/L (3.5-5.1); Protein, Total 8.1 g/dL (6.4-8.2); Troponin High Sensitivity 7.9 pg/mL (<58.9)
[2023-02-09] MEDS ORDERED: HYDROMORPHONE HCL 1 MG/ML INJ ONE ×2 (03:03→04:43)
[2023-02-09] MEDS ORDERED: KETOROLAC 30 MG/ML INJ ONE (03:33)
[2023-02-09 04:13] LABS: Urine Bacteria None Seen /HPF (<20); Urine Bilirubin NEGATIVE (Negative); Urine Blood Negative (Negative); Urine Clarity Clear (Clear); Urine Color Light-Yellow (Yellow); Urine Glucose NEGATIVE (Negative); Urine Mucus Slight /HPF (None Seen); Urine Protein TRACE (Negative); Urine RBC None Seen /HPF (None Seen); Urine Urobilinogen Normal (Normal); Urine pH 7.5 (5.0-7.0)
[2023-02-09 04:15] LABS: Specific Gravity > 1.035 (1.005-1.030)
[2023-02-09] MEDS ORDERED: PROMETHAZINE INJ 25 MG/ML AMP ONE (04:15)
--- NOTE | 2023-02-09 04:35 | EDPHYS ---
Physician Documentation [facility] Name: Lanre Clifton Jr Age: 67 yrs Sex: Male : 1955 Arrival Date: 02/09/2023 Time: 01:20 Bed 7 Private MD: ED Physician Pato Yin HPI: 02/09 02:41 This 67 yrs old Male presents to ER via Ambulatory with complaints of Chest Pain, sp3 Weakness, Dizziness, Breathing Difficulty. 02:41 59-year-old male with history of hypertension, hyperlipidemia, chronic back pain sp3 secondary to prior injury now presents with left-sided posterior flank and back pain along with numbness in his jaw and left upper extremity. Patient states that this pain is different in pattern and intensity. Denies any new trauma, anterior chest pain, anterior abdominal pain, fever, syncope, near syncope, any other neurological deficits, vomiting, diarrhea, bleeding, headache or any other signs or symptoms on ROS at this time. Pain started suddenly approximately 6 to 8 hours ago.. Historical: - Allergies: 01:57 No Known Allergies; vc1 - Home Meds: 01:57 pantoprazole 40 mg oral tablet, delayed release (enteric coated) every morning vc1 [Active]; cyclobenzaprine 10 mg Oral tablet once daily at bedtime [Active]; quetiapine 400 mg oral Tablet, Extended Release 24 hr every day at bedtime [Active]; - PMHx: 01:57 Hypertensive disorder; Hypercholesterolemia; Chronic back pain; vc1 - PSHx: 01:57 None; vc1 - Immunization history:: Client reports receiving the 2nd dose of the Covid vaccine. - Social history:: Smoking status: Patient denies any tobacco usage or history of. ROS: 02:42 Constitutional: Negative for fever, chills, and weight loss, Eyes: Negative for injury, sp3 pain, redness, and discharge, ENT: Negative for injury, pain, and discharge, Neck: Negative for injury, pain, and swelling, Cardiovascular: Negative for chest pain, palpitations, and edema, Respiratory: Negative for shortness of breath, cough, wheezing, and pleuritic chest pain, MS/Extremity: Negative for injury and deformity, Skin: Negative for injury, rash, and discoloration, Psych: Negative for depression, anxiety, suicide ideation, homicidal ideation, and hallucinations, Allergy/Immunology: Negative for hives, rash, and allergies, Endocrine: Negative for neck swelling, polydipsia, polyuria, polyphagia, and marked weight changes. 02:42 All other systems are negative. Exam: 02:42 Constitutional: This is a well developed, well nourished patient who is awake, alert, sp3 and in no acute distress. Head/Face: Normocephalic, atraumatic. Eyes: Pupils equal round and reactive to light, extra-ocular motions intact. Lids and lashes normal. Conjunctiva and sclera are non-icteric and not injected. Cornea within normal limits. Periorbital areas with no swelling, redness, or edema. Neck: Trachea midline, no thyromegaly or masses palpated, and no cervical lymphadenopathy. Supple, full range of motion without nuchal rigidity, or vertebral point tenderness. No Meningismus. Chest/axilla: Normal chest wall appearance and motion. Nontender with no deformity. No lesions are appreciated. Cardiovascular: Regular rate and rhythm with a normal S1 and S2. No gallops, murmurs, or rubs. Normal PMI, no JVD. No pulse deficits. Respiratory: Lungs have equal breath sounds bilaterally, clear to auscultation and percussion. No rales, rhonchi or wheezes noted. No increased work of breathing, no retractions or nasal flaring. Abdomen/GI: Soft, non-tender, with normal bowel sounds. No distension or tympany. No guarding or rebound. No evidence of tenderness throughout. Back: No spinal tenderness. No costovertebral tenderness. Full range of motion. Skin: Warm, dry with normal turgor. Normal color with no rashes, no lesions, and no evidence of cellulitis. 02:42 Neuro: Normal neurological exam however patient has subjective numbness on the left upper extremity and jaw/tongue. Two-point discrimination is normal. Gait not tested. Cranial nerves II through XII are normal. Mentation and mental status are normal.. Vital Signs: 01:33 BP 187 / 89; Pulse 96; Resp 25; Pulse Ox 99% ; Weight 95.25 kg; Height 5 ft. 11 in. ; vc1 Pain 10/10; 02:47 BP 183 / 83; kl 03:16 BP 172 / 85; Pulse 86; Resp 22; Pulse Ox 95% on R/A; Pain 10/10; kl 04:12 BP 173 / 102; Pulse 85; Resp 20; Pulse Ox 99% on R/A; kl 04:53 BP 168 / 97; Pulse 70; Resp 20; Temp 99; Pulse Ox 99% on R/A; kl 01:33 Body Mass Index 29.29 (95.25 kg, 180.34 cm) vc1 01:33 Pain Scale: Adult vc1 03:16 Pain Scale: Adult kl MDM: 02:08 Patient medically screened. sp3 02:43 Data reviewed: vital signs, nurses notes, lab test result(s), EKG, radiologic studies. sp3 ED course: 67-year-old male with hypertension and chronic back pain now presents with acute on chronic left-sided back pain with mild neurological symptoms. Differential diagnosis includes exacerbation of prior pain, aortic dissection, musculoskeletal pain, among others. I am not highly suspicious for sepsis, shock, CVA, GA, intestinal pathology, kidney stone, other pathology, or any other critical illness at this time. Will obtain CT scan of the chest and the dissection protocol, EKG, laboratory work and administer Dilaudid and Zofran as needed. Disposition pending patient work-up and patient course with possible admission versus discharge.. 04:17 ED course: All laboratory values and scans are normal including CTA. There is no sp3 evidence of acute aneurysm, dissection, or PE. Patient is still having nausea and mild vomiting for which we will add promethazine. Given normal work-up, we will safely discharge patient home once he is feeling better. CT scan of the head will also be reviewed.. 02/09 01:33 Order name: Basic Metabolic Panel; Complete Time: 04:16 02/09 01:33 Order name: CBC with Diff; Complete Time: 03:23 02/09 01:33 Order name: LFT's; Complete Time: 04:16 02/09 01:33 Order name: Magnesium; Complete Time: 04:16 02/09 01:33 Order name: NT PRO-BNP; Complete Time: 04:16 02/09 01:33 Order name: PT-INR; Complete Time: 03:23 02/09 01:33 Order name: Troponin HS; Complete Time: 04:16 02/09 02:49 Order name: CREATININE WHOLE BLOOD; Complete Time: 03:23 EDMS 02/09 03:30 Order name: UAM; Complete Time: 04:16 02/09 04:04 Order name: Lipase; Complete Time: 04:16 EDMS 02/09 01:33 Order name: XRAY Chest (1 view) 3 02/09 02:16 Order name: Angio Aorta For Dissection EDMS 02/09 02:50 Order name: CT Head Brain wo Cont sp3 02/09 01:33 Order name: EKG; Complete Time: 01:34 sp3 02/09 01:33 Order name: Cardiac monitoring; Complete Time: 01:52 3 02/09 01:33 Order name: EKG - Nurse/Tech; Complete Time: 01:48 3 02/09 01:33 Order name: IV Saline Lock; Complete Time: 01:52 sp3 02/09 01:33 Order name: Labs collected and sent; Complete Time: 01:52 3 02/09 01:33 Order name: O2 Per Protocol; Complete Time: 01:52 3 02/09 01:33 Order name: O2 Sat Monitoring; Complete Time: 01:52 3 Administered Medications: 02:04 Drug: morphine IVP or IV 4 mg Route: IVP; Infused Over: 4 mins; Site: right antecubital;kl 04:14 Follow up: Response: No adverse reaction; No change in condition kl 02:04 Drug: Ondansetron IVP 4 mg Route: IVP; Site: right antecubital; kl 04:15 Follow up: Response: No adverse reaction; No change in condition kl 02:58 Drug: HYDROmorphone IVP 1 mg Route: IVP; Site: right antecubital; kl 03:16 Follow up: Response: No change in condition kl 03:29 Drug: Ketorolac IVP 15 mg Route: IVP; Site: right antecubital; kl 04:14 Follow up: Response: No adverse reaction; No change in condition kl 04:10 Drug: Promethazine IVP 25 mg Route: IVP; Site: right antecubital; kl 04:40 Drug: HYDROmorphone IVP 1 mg Route: IVP; Site: right antecubital; kl 04:55 Follow up: Response: No adverse reaction; Marked relief of symptoms kl Disposition Summary: 02/09/23 04:34 Discharge Ordered Location: Home sp3 Condition: Stable sp3 Diagnosis - Chronic back pain sp3 Followup: sp3 - With: Private Physician - When: Upon discharge from the Emergency Department - Reason: Continuance of care Discharge Instructions: - Discharge Summary Sheet sp3 - Chronic Back Pain sp3 Forms: - Medication Reconciliation Form sp3 - Thank You Letter sp3 - Antibiotic Education sp3 - Prescription Opioid Use sp3 Signatures: Dispatcher [employer] EDMS Grace Johnston RN RN kl [place], COURT USHER-C [address] USHER-Cla1 Pato Yin MD MD sp3 Kathy Bertrand RN RN vc1 Corrections: (The following items were deleted from the chart) 02:16 02:08 Chest Angio+CT.RAD.BRZ ordered. EDMS EDMS 04:03 03:24 LIPASE+C.LAB.BRZ ordered. EDMS EDMS
--- NOTE | 2023-02-09 04:35 | ER ---
Nurse's Notes [facility] Name: Lanre Clifton Jr Age: 67 yrs Sex: Male : 1955 Arrival Date: 02/09/2023 Time: 01:20 Bed 7 Private MD: Diagnosis: Chronic back pain Presentation: 02/09 01:33 Chief complaint: Patient states: I started having chest pain that goes all the way to vc1 my back and down. It's been happening all evening and I just don't feel right. Coronavirus screen: Vaccine status: Patient reports receiving the 2nd dose of the covid vaccine. [employer] Client denies travel out of the [place] in the last 14 days. At this time, the client does not indicate any symptoms associated with coronavirus-19. :33 Method Of Arrival: Ambulatory vc1 01:33 Ebola Screen: Patient negative for fever greater than or equal to 101.5 degrees vc1 Fahrenheit, and additional compatible Ebola Virus Disease symptoms Patient denies exposure to infectious person. Patient denies travel to an Ebola-affected area in the 21 days before illness onset. No symptoms or risks identified at this time. Initial Sepsis Screen: Does the patient meet any 2 criteria? RR > 20 per min. HR > 90 bpm. Yes Does the patient have a suspected source of infection? No. Patient's initial sepsis screen is negative. Risk Assessment: Do you want to hurt yourself or someone else? Patient reports no desire to harm self or others. Onset of symptoms was February 08, 2023 at 17:00. 01:33 Acuity: INGRID 2 vc1 Triage Assessment: 02:04 General: Appears distressed, uncomfortable, Behavior is anxious. Pain: Complains of vc1 pain in anterior aspect of left upper chest and left breast Pain radiates to right mid back and right low back Pain currently is 10 out of 10 on a pain scale. Quality of pain is described as sharp, Pain began 6 hours ago. EENT: No deficits noted. No signs and/or symptoms were reported regarding the EENT system. Neuro: Level of Consciousness is awake, alert, obeys commands, Oriented to person, place, time, situation, Appropriate for age. Cardiovascular: Reports chest pain, Chest pain is described as "worst pain of my life", quality is sharp. Respiratory: Airway is patent Respiratory effort is even, unlabored, Respiratory pattern is symmetrical, tachypnea. GI: No deficits noted. No signs and/or symptoms were reported involving the gastrointestinal system. : No deficits noted. No signs and/or symptoms were reported regarding the genitourinary system. Derm: No deficits noted. No signs and/or symptoms reported regarding the dermatologic system. Musculoskeletal: No deficits noted. No signs and/or symptoms reported regarding the musculoskeletal system. Historical: - Allergies: : No Known Allergies; vc1 - Home Meds: : pantoprazole 40 mg oral tablet, delayed release (enteric coated) every morning vc1 [Active]; cyclobenzaprine 10 mg Oral tablet once daily at bedtime [Active]; quetiapine 400 mg oral Tablet, Extended Release 24 hr every day at bedtime [Active]; - PMHx: :57 Hypertensive disorder; Hypercholesterolemia; Chronic back pain; vc1 - PSHx: : None; vc1 - Immunization history:: Client reports receiving the 2nd dose of the Covid vaccine. - Social history:: Smoking status: Patient denies any tobacco usage or history of. Screenin:[address] [facility] ED Fall Risk Assessment (Adult) History of falling in the last 3 months, vc1 including since admission No falls in past 3 months (0 pts) Confusion or Disorientation No (0 pts) Intoxicated or Sedated No (0 pts) Impaired Gait Yes (1 pt) Mobility Assist Device Used No (0 pt) Altered Elimination No (0 pt) Score/Fall Risk Level 0 - 2 = Low Risk Oriented to surroundings, Maintained a safe environment, Educated pt \\T\\ family on fall prevention, incl call for assistance when getting out of bed. Abuse screen: Denies threats or abuse. Nutritional screening: No deficits noted. Tuberculosis screening: No symptoms or risk factors identified. Assessment: 03:17 General: Appears distressed, uncomfortable, Behavior is anxious. Pain: Complains of kl pain in back and right mid back and chest Pain currently is 10 out of 10 on a pain scale. Pain: Quality of pain is described as aching, sharp. Neuro: No deficits noted. Cardiovascular: Rhythm is sinus rhythm. Respiratory: Airway is patent Trachea midline. GI: Reports bloating, nausea. : No deficits noted. No signs and/or symptoms were reported regarding the genitourinary system. EENT: No deficits noted. No signs and/or symptoms were reported regarding the EENT system. 04:11 Reassessment: pt continues to c/o pain actively vomiting MD notified pt medicated per order. Vital Signs: 01:33 BP 187 / 89; Pulse 96; Resp 25; Pulse Ox 99% ; Weight 95.25 kg; Height 5 ft. 11 in. ; vc1 Pain 10/10; 02:47 BP 183 / 83; kl 03:16 BP 172 / 85; Pulse 86; Resp 22; Pulse Ox 95% on R/A; Pain 10/10; kl 04:12 BP 173 / 102; Pulse 85; Resp 20; Pulse Ox 99% on R/A; kl 04:53 BP 168 / 97; Pulse 70; Resp 20; Temp 99; Pulse Ox 99% on R/A; kl 01:33 Body Mass Index 29.29 (95.25 kg, 180.34 cm) vc1 01:33 Pain Scale: Adult vc1 03:16 Pain Scale: Adult Vitals: 02:05 The patient's bilateral blood pressures are equal. ED Course: 01:21 Patient arrived in ED. ja2 01:33 Pato Yin MD is Attending Physician. sp3 01:50 Inserted saline lock: 20 gauge in right antecubital area, using aseptic technique. Blood collected. IV discontinued, intact, bleeding controlled, No redness/swelling at site. Pressure dressing applied. Patient maintains SpO2 saturation greater than 95% on room air. 01:52 Basic Metabolic Panel Sent. kl 01:52 CBC with Diff Sent. kl 01:52 LFT's Sent. kl 01:52 Magnesium Sent. kl 01:52 NT PRO-BNP Sent. kl 01:52 PT-INR Sent. kl 01:52 Troponin HS Sent. kl 01:57 Triage completed. vc1 02:05 Troponin HS Sent. kl 02:05 PT-INR Sent. kl 02:05 NT PRO-BNP Sent. kl 02:05 Magnesium Sent. kl 02:05 LFT's Sent. kl 02:05 CBC with Diff Sent. kl 02:05 Basic Metabolic Panel Sent. kl 02:06 Arm band placed on left wrist. vc1 02:07 Patient has correct armband on for positive identification. Bed in low position. Call vc1 light in reach. Client placed on continuous cardiac and pulse oximetry monitoring. NIBP monitoring applied. 02:08 XRAY Chest (1 view) In Process Unspecified. EDMS 02:51 Angio Aorta For Dissection In Process Unspecified. EDMS 03:10 CT Head Brain wo Cont In Process Unspecified. EDMS 03:36 UAM Sent. kl 04:54 No provider procedures requiring assistance completed. kl 04:55 IV discontinued, intact, bleeding controlled, No redness/swelling at site. Pressure kl dressing applied. Administered Medications: 02:04 Drug: morphine IVP or IV 4 mg Route: IVP; Infused Over: 4 mins; Site: right antecubital;kl 04:14 Follow up: Response: No adverse reaction; No change in condition kl 02:04 Drug: Ondansetron IVP 4 mg Route: IVP; Site: right antecubital; kl 04:15 Follow up: Response: No adverse reaction; No change in condition kl 02:58 Drug: HYDROmorphone IVP 1 mg Route: IVP; Site: right antecubital; kl 03:16 Follow up: Response: No change in condition kl 03:29 Drug: Ketorolac IVP 15 mg Route: IVP; Site: right antecubital; kl 04:14 Follow up: Response: No adverse reaction; No change in condition kl 04:10 Drug: Promethazine IVP 25 mg Route: IVP; Site: right antecubital; kl 04:40 Drug: HYDROmorphone IVP 1 mg Route: IVP; Site: right antecubital; kl 04:55 Follow up: Response: No adverse reaction; Marked relief of symptoms kl Medication: 02:07 VIS not applicable for this client. vc1 Outcome: 04:34 Discharge ordered by . sp3 04:55 Discharged to home ambulatory, with family. kl 04:55 Condition: improved 04:55 Discharge instructions given to patient, Instructed on discharge instructions, follow up and referral plans. Demonstrated understanding of instructions, follow-up care. 04:55 Patient left the ED. kl Signatures: Dispatcher [employer] EDGrace Cardona, RN RN Pato Merino MD MD sp3 Erinn Grimaldo Vanessa RN RN vc1 Corrections: (The following items were deleted from the chart) 04:03 03:36 LIPASE+C.LAB.BRZ drawn and sent. kl EDMS
[2023-02-09 05:23] VITALS: O2SAT 99
[2023-02-09 05:24] VITALS: BP 168/97; TEMP 99
--- NOTE | 2023-02-09 05:32 | EKG ---
Test Date: 2023-02-09 Test Time: 01:29:35 Paste Maker: DANNY MEASUREMENT RESULTS: Intervals: Rate: 87 OK: 110 QRSD: 98 QT: 356 QTc: 428 [place]: P: 48 OK: 110 QRS: 62 T: 52 INTERPRETIVE STATEMENTS: Sinus rhythm with short OK Otherwise normal ECG Compared to ECG 04/30/2018 06:19:16 Short OK interval now present Electronically Signed On 02-09-23 05:32:07 CDT by Quintin Jenkins
--- NOTE | 2023-02-09 21:55 | RAD REPORT ---
EXAM DESCRIPTION: RAD - Chest Single View - 02/09/2023 2:06 am CLINICAL HISTORY: 67 years, Male, CHEST PAIN COMPARISON: None FINDINGS: Single view of the chest was obtained portable. No prior films are available for compariso n. The cardiomediastinal silhouette demonstrate to be unremarkable. The heart is not enlarged. The th oracic aorta is unremarkable. The pulmonary vasculature is normal distribution. Costophrenic angles a re sharp. No areas of consolidation or masses are seen. The rest of the soft tissue and bony stru ctures demonstrate to be unremarkable. IMPRESSION: No acute cardiopulmonary abnormality is seen. Electronically signed by: Pratik Gan MD 02/09/2023 2:34 AM CDT Due to temporary technical issues with the PACS/Fluency reporting system, reports are being signed by the in house radiologists without review as a courtesy to insure prompt reporting. The interpreting radiologist is fully responsible for the content of the report.
--- NOTE | 2023-02-09 21:59 | RAD REPORT ---
EXAM DESCRIPTION: CT - Head Brain Wo Cont - 02/09/2023 7:04 am CLINICAL HISTORY: 67 years, Male, headache, facial numbness COMPARISON: 04/15/2021 FINDINGS: Multiple transaxial tomograms of the brain were obtained from the base of the skull to the vertex without contrast. 2-D multiplanar reformats and the coronal and sagittal plane were performed and reviewed. This exam was performed according to our departmental dose-optimization protocol, which includes auto mated exposure control, adjustment of the mA and/or kV according to patient size and/or use of iterat pallavi reconstruction technique. Noted is the presence of the high density material within the arterial system and falx cerebri and te ntorium highly suggestive of previous/recent iodine study. Brain parenchyma as well as the zamora and white matter differentiation demonstrate to be unremarkable. There is no midline shift and/or mass effect. There is no evidence for acute hemorrhage. There are n o focal areas of hypodensities. Lateral ventricles and cisterns displace normal appearance. No intr a or extra axial fluid collections were seen. The calvarium is intact with no evidence for fracture. The visualized portions of the paranasal sinuses and orbits demonstrate to be clear. No evidence for abnormal enhancement. IMPRESSION: No evidence for acute hemorrhage. High density material within the arterial system and falx cerebri and tentorium highly suggestive of recent iodine study. Electronically signed by: Pratik Gan MD 02/09/2023 3:24 AM CDT Due to temporary technical issues with the PACS/Fluency reporting system, reports are being signed by the in house radiologists without review as a courtesy to insure prompt reporting. The interpreting radiologist is fully responsible for the content of the report.
--- NOTE | 2023-02-09 22:03 | RAD REPORT ---
EXAM DESCRIPTION: CT - Angio Aorta For Dissection - 02/09/2023 7:04 am CLINICAL HISTORY: 67 years Male CHEST, ABD, AND BACK PAIN TECHNIQUE: Following the administration of intravenous contrast, multiple high-resolution axial imag es of the chest, abdomen and pelvis were performed followed by sagittal and coronal reconstructed jane ges. Coronal and sagittal MIP images were also performed.The CT study is performed according to ALARA (as low as reasonably achievable) or ALARA/IMAGE GENTLY, with automatic adjustment of mA and/or kV a ccording to patient size. Performed on: 02/09/2023 at 2:41 AM COMPARISON: CT chest, abdomen and pelvis performed on 04/15/2021 FINDINGS: CTA CHEST: There is satisfactory visualization and contrast opacification of pulmonary arteries. No definite i ntra-arterial filling defects are identified to suggest acute or chronic pulmonary embolism. The thor acic aorta is normal in caliber and contour without evidence of aneurysm or dissection. The lungs are well expanded and are clear. There is no evidence of a pneumothorax. There are no pleur al effusions. The central airways are patent. The heart is normal in size. There is no pericardial effusion. There is no evidence of hilar, mediastinal or axillary lymphadenopathy. There is a calcified right pa ratracheal mediastinal lymph node. No acute osseous abnormality is identified. There are degenerative changes along the mid to lower tho racic spine. Non-Angiographic Findings: The thyroid gland is grossly normal in size and configuration as visualize d. No focal soft tissue abnormalities are identified.. CTA ABDOMEN AND PELVIS: Liver: The liver is normal in size and configuration. No focal hepatic abnormalities are identified. Liver attenuation is within normal limits. Spleen: The spleen is normal is size, configuration and attenuation. Gallbladder and bile duct: The gallbladder is well distended and unremarkable. There is no biliary ductal dilatation. Pancreas: The pancreas is grossly normal in size and configuration. Adrenal Glands: There is a grossly stable 9 mm low density right adrenal mass lesion likely represent ing an adrenal adenoma. The left adrenal gland is normal in size and configuration. Kidneys: The kidneys are normal in size and configuration. There is no evidence of hydronephrosis. Th ere is no evidence of nephrolithiasis. There is an approximately 1.2 cm sharply marginated benign chastity earing cyst arising from the anterior cortex of the midpole of the left kidney. This is similar when compared to the prior study. No follow-up imaging is recommended. Stomach: The stomach is grossly normal. There is no definite hiatal hernia. Bowel: The bowel gas pattern is non specific and non obstructive. Appendix: The appendix is not identified and may be surgically absent. There is no CT evidence to sug gest acute appendicitis. Free air: There is no evidence of free air. Free fluid: There is no evidence of free fluid. Vasculature: The aorta is normal in caliber and contour. The celiac artery, superior and inferior mes enteric arteries and renal arteries are patent and normal in caliber and contour. The iliofemoral art eries are patent and are normal in caliber and contour. There is no evidence of aneurysm or dissectio n. The inferior vena cava is grossly unremarkable. Lymphadenopathy: No pathologic lymphadenopathy is identified. Bladder: The bladder is partially distended and smooth in contour. Reproductive: The prostate gland is grossly within normal limits. Bones: No acute osseous abnormalities are identified. There are degenerative changes of the bar spine with disc osteophyte complexes present at multiple levels and degenerative changes of the facet join ts. Soft tissues: No focal soft tissue abnormalities are identified. There are postsurgical changes consi stent with prior right inguinal hernia repair. There are small fat-containing bilateral inguinal horacio ias. There is a small fat-containing umbilical hernia. IMPRESSION: CTA CHEST: 1. No evidence of pulmonary embolism, aortic aneurysm or aortic dissection. 2. No evidence of acute intrathoracic disease. 3. Evidence of prior granulomatous disease. CTA ABDOMEN AND PELVIS: 1. No evidence of acute intra-abdominal or intrapelvic pathology. 2. Normal CTA of the abdomen and pelvis. There is no evidence of aortic aneurysm or aortic dissecti on. 3. 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 4. Suspect stable 9 mm right adrenal adenoma. No follow-up imaging is recommended. 5. Small fat-containing bilateral inguinal hernias and small fat-containing umbilical hernia. Prior right inguinal hernia repair. Electronically signed by: Oksana Barajas DO 02/09/2023 3:37 AM CDT Due to temporary technical issues with the PACS/Fluency reporting system, reports are being signed by the in house radiologists without review as a courtesy to insure prompt reporting. The interpreting radiologist is fully responsible for the content of the report.
== END 2023-02-09 04:55 | disposition home or self-care (01) ==
LOC: ER 01:20
DX: M54.9 Dorsalgia, unspecified (principal); R11.2 Nausea with vomiting, unspecified; R10.9 Unspecified abdominal pain; I10 Essential (primary) hypertension; E78.00 Pure hypercholesterolemia, unspecified
CPT/HCPCS: 93005; 85025; 81001; 80048; 36415; 83735; 85610; 82565; 80076; 84484; 83690; 83880; 70450; 71275; 74175; 71045; 96375; 96374; 99285; Q9967; J2550; J1170 ×2; J2405

== ENCOUNTER 2023-02-13 15:52 | Observation (INO) | payer OTHER ==
[2023-02-13 16:20] LABS: Absolute Lymphocytes (CBC) 2.8 K/uL (0.7-4.9); Hematocrit 43.7 % (39.6-49.0); Lymphocytes % 24.1 % (15.3-44.8); MPV 7.7 fL (7.6-11.3)
[2023-02-13 16:37] LABS: Magnesium 1.9 mg/dL (1.6-2.4); Potassium 4.2 mEq/L (3.5-5.1); Troponin High Sensitivity 7.9 pg/mL (<58.9)
--- OUTSIDE RECORDS SUMMARY | 2023-02-13 16:40 | XMS REPORT | Continuity of Care Document ---
:1955 [address] [facility] t Address [address] [facility] [address] [place] [id number] Care Team Providers Name Role Phone Unavailable Unavailable Unavailable Payers Payer Name Policy Type Policy Number Effective Date Expiration Date S [facility] 2022 (MEDICARE 00:00:00 REPLACEMENT HMO) Problems This patient has no known problems. Allergies, Adverse Reactions, Alerts This patient has no known allergies or adverse reactions. Medications This patient has no known medications. Procedures This patient has no known procedures. Encounters Start End Encounter Admission Attending Care Care Encounter Source Date/Time Date/Time Type Type Clinicians Facility Department ID 2022-07-27 2022-07-27 Outpatient [facility] [id number] [facility] 00:00:00 00:00:00 [id number] Results This patient has no known results.
[2023-02-13] MEDS ORDERED: FENTANYL CITR 100 MCG/2 ML ONE (16:53)
[2023-02-13] MEDS ORDERED: ASPIRIN 81 MG CHEWABLE TABLET ONE (16:53)
[2023-02-13] MEDS ORDERED: ONDANSETRON 4 MG/2 ML VIAL ONE (16:53)
--- NOTE | 2023-02-13 17:08 | RAD REPORT ---
EXAM DESCRIPTION: RAD - Chest Single View - 02/13/2023 4:43 pm CLINICAL HISTORY: CHEST PAIN COMPARISON: Chest Single View dated 02/09/2023; Chest Single View dated 04/15/2021; Chest Single View dated 04/30/2018; CHEST PA AND LAT 2 VIEW dated 09/19/2015 FINDINGS: Lines: None. Lungs: No evidence of edema or pneumonia. Pleural: No significant pleural effusions or pneumothorax. Cardiac: The heart size is within normal limits. Mediastinum: Within normal limits. Bones: No acute fractures. Other: None IMPRESSION: No acute cardiopulmonary disease.
--- NOTE | 2023-02-13 17:27 | RAD REPORT ---
EXAM DESCRIPTION: CT - Head Brain Wo Cont - 02/13/2023 5:21 pm CLINICAL HISTORY: SYNCOPE COMPARISON: Head Brain Wo Cont dated 02/09/2023; HEAD BRAIN W O CONTRAST dated 09/19/2015 TECHNIQUE: All CT scans are performed using dose optimization technique as appropriate and may inclu de automated exposure control or mA/KV adjustment according to patient size. FINDINGS: No intracranial hemorrhage, hydrocephalus or extra-axial fluid collection.No areas of brai n edema or evidence of midline shift. The paranasal sinuses and mastoids are clear. The calvarium is intact. IMPRESSION: No acute intracranial abnormality.
--- NOTE | 2023-02-13 17:54 | ER ---
Nurse's Notes [facility] Name: Lanre Clifton Jr Age: 67 yrs Sex: Male : 1955 Arrival Date: 02/13/2023 Time: 15:52 Bed 15 Private MD: Joe Guaman T Diagnosis: Syncope;Chest pain, unspecified Presentation: 02/13 15:54 Chief complaint: Patient states: Chest pain since 11am, states it radiates to his left nj1 arm. Coronavirus screen: Vaccine status: Patient reports receiving the 2nd dose of the covid vaccine. Ebola Screen: Patient denies travel to an Ebola-affected area in the 21 days before illness onset. 15:54 Method Of Arrival: Ambulatory [facility] 15:54 Initial Sepsis Screen: Does the patient meet any 2 criteria? No. Patient's initial ar1 sepsis screen is negative. Does the patient have a suspected source of infection? No. Patient's initial sepsis screen is negative. Risk Assessment: Do you want to hurt yourself or someone else? Patient reports no desire to harm self or others. Onset of symptoms was February 13, 2023 at 11:00. 15:54 Acuity: INGRID 2 nj1 16:07 Coronavirus screen: Vaccine status: Patient reports receiving the 2nd dose of the covid mb9 vaccine. Ebola Screen: No symptoms or risks identified at this time. Initial Sepsis Screen: Does the patient meet any 2 criteria? No. Patient's initial sepsis screen is negative. Does the patient have a suspected source of infection? No. Patient's initial sepsis screen is negative. Risk Assessment: Do you want to hurt yourself or someone else? Patient reports no desire to harm self or others. Onset of symptoms was February 13, 2023. 16:07 Method Of Arrival: Ambulatory [facility] Historical: - Allergies: 16:09 No Known Allergies; nj1 - PMHx: 16:09 chronic back pain; Hypercholesterolemia; Hypertensive disorder; nj1 - PSHx: 16:09 None; nj1 - Immunization history:: Adult Immunizations up to date. - Social history:: Smoking status: Patient/guardian denies using tobacco. Screenin:05 [facility] ED Fall Risk Assessment (Adult) History of falling in the last 3 months, [facility] including since admission No falls in past 3 months (0 pts) Confusion or Disorientation No (0 pts) Intoxicated or Sedated No (0 pts) Impaired Gait No (0 pts) Mobility Assist Device Used No (0 pt) Altered Elimination No (0 pt) Score/Fall Risk Level 0 - 2 = Low Risk Oriented to surroundings, Maintained a safe environment, Educated pt \T\ family on fall prevention, incl call for assistance when getting out of bed. Abuse screen: Denies threats or abuse. Nutritional screening: No deficits noted. Tuberculosis screening: No symptoms or risk factors identified. Assessment: 16:02 General: Appears uncomfortable, Behavior is anxious. Pain: Complains of pain in chest mb9 Pain radiates to left arm Pain currently is 10 out of 10 on a pain scale. Quality of pain is described as aching, throbbing, Pain began suddenly, Is continuous. Neuro: Level of Consciousness is awake, alert, obeys commands, Oriented to person, place, time, situation, Appropriate for age Reports paresthesias in left arm 1100am today. Cardiovascular: Heart tones S1 S2 present Patient's skin is warm and dry. Pulses are all present. Rhythm is regular. Respiratory: Airway is patent Respiratory effort is even, unlabored, Respiratory pattern is regular, symmetrical, Breath sounds are clear bilaterally. GI: Abdomen is round non-distended, Bowel sounds present X 4 quads. Abd is soft and non tender X 4 quads. Reports nausea, vomiting. Derm: Skin is pink, warm \T\ dry. Musculoskeletal: Range of motion: intact in all extremities. 18:00 Reassessment: Patient states symptoms have not improved. mb9 18:00 Pain: Complains of pain in chest Pain radiates to left arm Pain currently is 10 out of mb9 10 on a pain scale. Quality of pain is described as aching, throbbing, Is continuous. 18:50 Reassessment: Patient appears in no apparent distress at this time. Patient and/or mb9 family updated on plan of care and expected duration. Pain level reassessed. Patient is alert, oriented x 3, equal unlabored respirations, skin warm/dry/pink. 20:03 Reassessment: attempted to call report to admitting nurse. Floor was unaware of pt mb9 assignment. 20:33 Reassessment: No changes from previously documented assessment. Patient and/or family mb9 updated on plan of care and expected duration. Pain level reassessed. Patient is alert, oriented x 3, equal unlabored respirations, skin warm/dry/pink. Vital Signs: 15:54 BP 173 / 97; Pulse 86; Resp 26; Temp 98.4; Pulse Ox 100% on R/A; Weight 95.25 kg; nj1 Height 5 ft. 11 in. ; Pain 10/10; 16:06 BP 162 / 95; Pulse 93; Resp 18; Pulse Ox 100% on R/A; Weight 95.25 kg; Height 5 ft. 11 mb9 in. ; 17:54 BP 155 / 84; Pulse 72; Resp 20; Pulse Ox 100% on R/A; mb9 18:49 BP 138 / 83; Pulse 78; Resp 18; Pulse Ox 98% on R/A; mb9 16:06 Body Mass Index 29.29 (95.25 kg, 180.34 cm) mb9 15:54 Pain Scale: Adult nj1 NIH Stroke Scale Scores: 16:05 NIHSS Score: 0 mb9 ED Course: 15:53 Patient arrived in ED. mr 15:53 Joe Guaman MD is Private Physician. mr 15:56 [facility] jr[facility] 15:56 Yves Orr MD is Attending Physician. jr8 16:01 Claudia Lloyd RN is Primary Nurse. mb9 16:01 Arm band placed on. mb9 16:02 EKG done, by ED staff, reviewed by Nilson FIERRO. mb9 16:02 Troponin HS Sent. mb9 16:02 Basic Metabolic Panel Sent. mb9 16:02 CBC with Diff Sent. mb9 16:02 Magnesium Sent. mb9 16:02 NT PRO-BNP Sent. mb9 16:04 Inserted saline lock: 20 gauge in right antecubital area, using aseptic technique. zm Blood collected. 16:06 Placed in gown. Bed in low position. Call light in reach. Side rails up X 1. Client mb9 placed on continuous cardiac and pulse oximetry monitoring. NIBP monitoring applied. court recording monitor on. Door closed. Noise minimized. Warm blanket given. 16:07 No provider procedures requiring assistance completed. Patient maintains SpO2 mb9 saturation greater than 95% on room air. 16:08 Triage completed. nj1 16:44 XRAY Chest (1 view) In Process Unspecified. EDMS 17:23 CT Head Brain wo Cont In Process Unspecified. EDMS 17:53 Jessica Woodward MD is Hospitalizing Provider. jr8 20:34 Patient admitted, IV remains in place. mb9 Administered Medications: 16:41 Drug: Aspirin PO Chewable Tablet 324 mg Route: PO; mb9 18:51 Follow up: Response: No adverse reaction mb9 16:43 Drug: Ondansetron IVP 4 mg Route: IVP; Site: right antecubital; mb9 17:54 Follow up: Response: No adverse reaction mb9 16:46 Drug: fentaNYL (PF) IVP 50 mcg Route: IVP; Site: right antecubital; mb9 17:55 Follow up: Response: No adverse reaction mb9 17:59 Drug: morphine IVP or IV 4 mg Route: IVP; Infused Over: 4 mins; Site: right antecubital;mb9 18:51 Follow up: Response: No adverse reaction mb9 20:31 Drug: Diazepam IVP 10 mg Route: IVP; Site: right antecubital; mb9 20:32 Follow up: Response: No adverse reaction mb9 Medication: 16:06 VIS not applicable for this client. mb9 Outcome: 17:54 Decision to Hospitalize by Provider. jr8 20:33 Admitted to Med/surg room 220, with chart, Report called to JERAD Oliver mb9 20:33 Condition: stable 20:37 Patient left the ED. mb9 NIH Stroke Scale - NIH Stroke Score Date: 02/13/2023 Time: 16:05 Total Score = 0 10. Dysarthria (speech clarity - read or repeat words) - 0(Normal) 11. Extinction and Inattention (visual/tactile/auditory/spatial/personal) - 0(No abnormality) 1a. Level of Consciousness (LOC) - 0(Alert) 1b. Level of Consciousness (LOC) (Month \T\ Age) - 0(Both) 1c. LOC Commands (Open \T\ Closes Eyes/Surgeon Chief) - 0(Both) 2. Best Gaze (Lateral Gaze Paresis) - 0(Normal) 3. Visual Field Loss - 0(No visual loss) 4. Facial Palsy - 0(Normal) 5a. Left Arm: Motor (10-second hold) - 0(No drift) 5b. Right Arm: Motor (10-second hold) - 0(No drift) 6a. Left Leg: Motor (5-second hold - always test supine) - 0(No drift) 6b. Right Leg: Motor (5-second hold - always test supine) - 0(No drift) 7. Limb Ataxia (finger/nose \T\ heel/singer - test with eyes open) - 0(Absent) 8. Sensory Loss (pinprick arms/legs/face) - 0(Normal) 9. Best Language: Aphasia (description/naming/reading) - 0(No aphasia) Initials: mb9 Signatures: Dispatcher [employer] LEO AaronClaudia AshNilson PA PA jr8 Ayaka James, Claudia Isaacs, RN RN mb9 Elke Barrientos RN RN nj1
--- NOTE | 2023-02-13 17:54 | EDPHYS ---
Physician Documentation [facility] Name: Lanre Clifton Jr Age: 67 yrs Sex: Male : 1955 Arrival Date: 02/13/2023 Time: 15:52 Bed 15 Private MD: Joe Guaman T ED Physician Yves Orr HPI: 02/13 17:33 This 67 yrs old Male presents to ER via Ambulatory with complaints of Syncope. jr8 17:33 The patient has experienced syncope, became unresponsive, collapsed. Onset: The jr8 symptoms/episode began/occurred acutely, today. Duration: This was a single episode, that lasted an unknown period of time. Context: occurred at home. Associated injury: The patient did not suffer any apparent associated injury. Associated signs and symptoms: Pertinent positives: chest pain. The patient has not experienced similar symptoms in the past. The patient has been recently seen by a physician: The patient has been recently seen at the [facility] Emergency Department, last week, for similar complaints labs were performed, X-rays were performed, CT scan was performed, the patient was told to return for a recheck. Patient seen 5 days ago for chest pain and had full work-up done including CT, x-ray, EKG, blood work. No acute findings at that time and was discharged home. Came back today for syncopal episode and with chest pain. Stated that he was walking and then collapsed at home. Woke up on the ground with his dogs looking him. Did not know what happened.. Historical: - Allergies: 16:09 No Known Allergies; nj1 - PMHx: 16:09 chronic back pain; Hypercholesterolemia; Hypertensive disorder; nj1 - PSHx: 16:09 None; nj1 - Immunization history:: Adult Immunizations up to date. - Social history:: Smoking status: Patient/guardian denies using tobacco. ROS: 17:33 Eyes: Negative for injury, pain, redness, and discharge, ENT: Negative for injury, jr8 pain, and discharge, Neck: Negative for injury, pain, and swelling, Respiratory: Negative for shortness of breath, cough, wheezing, and pleuritic chest pain, Abdomen/GI: Negative for abdominal pain, nausea, vomiting, diarrhea, and constipation, Back: Negative for injury and pain, MS/Extremity: Negative for injury and deformity, Skin: Negative for injury, rash, and discoloration. 17:33 Cardiovascular: Positive for chest pain. 17:33 Neuro: Positive for syncope. Exam: 17:33 Constitutional: This is a well developed, well nourished patient who is awake, alert, jr8 and in no acute distress. Head/Face: Normocephalic, atraumatic. Eyes: Pupils equal round and reactive to light, extra-ocular motions intact. Lids and lashes normal. Conjunctiva and sclera are non-icteric and not injected. Cornea within normal limits. Periorbital areas with no swelling, redness, or edema. Neck: Trachea midline, no thyromegaly or masses palpated, and no cervical lymphadenopathy. Supple, full range of motion without nuchal rigidity, or vertebral point tenderness. No Meningismus. Cardiovascular: Regular rate and rhythm with a normal S1 and S2. No gallops, murmurs, or rubs. Normal PMI, no JVD. No pulse deficits. Respiratory: Lungs have equal breath sounds bilaterally, clear to auscultation and percussion. No rales, rhonchi or wheezes noted. No increased work of breathing, no retractions or nasal flaring. Abdomen/GI: Soft, non-tender, with normal bowel sounds. No distension or tympany. No guarding or rebound. No evidence of tenderness throughout. Back: No spinal tenderness. No costovertebral tenderness. Full range of motion. Skin: Warm, dry with normal turgor. Normal color with no rashes, no lesions, and no evidence of cellulitis. MS/ Extremity: Pulses equal, no cyanosis. Neurovascular intact. Full, normal range of motion. Neuro: Awake and alert, GCS 15, oriented to person, place, time, and situation. Cranial nerves II-XII grossly intact. Motor strength 5/5 in all extremities. Sensory grossly intact. Cerebellar exam normal. 17:33 ECG was reviewed by the Attending Physician. 8 Vital Signs: 15:54 BP 173 / 97; Pulse 86; Resp 26; Temp 98.4; Pulse Ox 100% on R/A; Weight 95.25 kg; nj1 Height 5 ft. 11 in. ; Pain 10/10; 16:06 BP 162 / 95; Pulse 93; Resp 18; Pulse Ox 100% on R/A; Weight 95.25 kg; Height 5 ft. 11 mb9 in. ; 17:54 BP 155 / 84; Pulse 72; Resp 20; Pulse Ox 100% on R/A; mb9 18:49 BP 138 / 83; Pulse 78; Resp 18; Pulse Ox 98% on R/A; mb9 16:06 Body Mass Index 29.29 (95.25 kg, 180.34 cm) mb9 15:54 Pain Scale: Adult nj1 NIH Stroke Scale Scores: 16:05 NIHSS Score: 0 mb9 MDM: 15:57 Patient medically screened. 17:33 Differential Diagnosis: cardiac arrhythmia, emotional response, idiopathic syncope, jr8 vasovagal episode. Data reviewed: vital signs, nurses notes, lab test result(s), EKG, radiologic studies, CT scan, plain films. Consideration of Admission/Observation Patient was admitted/placed on observation. Management of patient was discussed with the following: Hospitalist: Lora Clifton PA-C. Care significantly affected by the following chronic conditions: Hypertension, Obesity. Counseling: I had a detailed discussion with the patient and/or guardian regarding: the historical points, exam findings, and any diagnostic results supporting the discharge/admit diagnosis, lab results, radiology results, the need for further work-up and treatment in the hospital. 02/13 15:57 Order name: Basic Metabolic Panel; Complete Time: 16:39 02/13 15:57 Order name: CBC with Diff; Complete Time: 16:39 02/13 15:57 Order name: Magnesium; Complete Time: 16:39 02/13 15:57 Order name: NT PRO-BNP; Complete Time: 16:39 02/13 15:57 Order name: Troponin HS; Complete Time: 16:39 02/13 15:57 Order name: XRAY Chest (1 view); Complete Time: 17:11 02/13 16:39 Order name: CT Head Brain wo Cont; Complete Time: 17:33 02/13 15:57 Order name: EKG; Complete Time: 15:57 02/13 15:57 Order name: Cardiac monitoring; Complete Time: 16:02 02/13 15:57 Order name: EKG - Nurse/Tech; Complete Time: 16:02 02/13 15:57 Order name: IV Saline Lock; Complete Time: 16:02 29 15:57 Order name: Labs collected and sent; Complete Time: 16:8 02/13 15:57 Order name: O2 Per Protocol; Complete Time: 16:02/13 15:57 Order name: O2 Sat Monitoring; Complete Time: 16: EC:33 Rate is 88 beats/min. Rhythm is regular, Normal Sinus Rhythm. QRS Sandy is Normal. OR jr8 interval is normal at 120 msec. QRS interval is normal at 88 msec. QT interval is normal at 430 msec. No Q waves. T waves are Normal. No ST changes noted. Clinical impression: Normal ECG. Interpreted by me. Reviewed by me. Administered Medications: 16:41 Drug: Aspirin PO Chewable Tablet 324 mg Route: PO; mb9 18:51 Follow up: Response: No adverse reaction mb9 16:43 Drug: Ondansetron IVP 4 mg Route: IVP; Site: right antecubital; mb9 17:54 Follow up: Response: No adverse reaction mb9 16:46 Drug: fentaNYL (PF) IVP 50 mcg Route: IVP; Site: right antecubital; mb9 17:55 Follow up: Response: No adverse reaction mb9 17:59 Drug: morphine IVP or IV 4 mg Route: IVP; Infused Over: 4 mins; Site: right antecubital;mb9 18:51 Follow up: Response: No adverse reaction mb9 20:31 Drug: Diazepam IVP 10 mg Route: IVP; Site: right antecubital; mb9 20:32 Follow up: Response: No adverse reaction mb9 Disposition: 02/14 07:14 Co-signature as Attending Physician, Yves Orr MD I reviewed the patient's care rn provided by the Advanced Practice Provider and agree with the diagnosis and treatment plan. Disposition Summary: 02/13/23 17:54 Hospitalization Ordered Hospitalization Status: Observation jr8 Provider: Jessica Woodward Location: Telemetry/MedSur (observation) [facility] Condition: Stable jr8 Problem: new jr8 Symptoms: are unchanged jr8 Bed/Room Type: Standard [facility] Room Assignment: 220(02/13/23 19:52) Diagnosis - Syncope jr8 - Chest pain, unspecified jr8 Forms: - Medication Reconciliation Form jr8 - SBAR form jr8 NIH Stroke Scale - NIH Stroke Score Date: 02/13/2023 Time: 16:05 Total Score = 0 10. Dysarthria (speech clarity - read or repeat words) - 0(Normal) 11. Extinction and Inattention (visual/tactile/auditory/spatial/personal) - 0(No abnormality) 1a. Level of Consciousness (LOC) - 0(Alert) 1b. Level of Consciousness (LOC) (Month \T\ Age) - 0(Both) 1c. LOC Commands (Open \T\ Closes Eyes/Still Photographer) - 0(Both) 2. Best Gaze (Lateral Gaze Paresis) - 0(Normal) 3. Visual Field Loss - 0(No visual loss) 4. Facial Palsy - 0(Normal) 5a. Left Arm: Motor (10-second hold) - 0(No drift) 5b. Right Arm: Motor (10-second hold) - 0(No drift) 6a. Left Leg: Motor (5-second hold - always test supine) - 0(No drift) 6b. Right Leg: Motor (5-second hold - always test supine) - 0(No drift) 7. Limb Ataxia (finger/nose \T\ heel/singer - test with eyes open) - 0(Absent) 8. Sensory Loss (pinprick arms/legs/face) - 0(Normal) 9. Best Language: Aphasia (description/naming/reading) - 0(No aphasia) Initials: mb9 Signatures: Dispatcher [employer] EDYves Mora MD MD rn Roszak, Josh, PA PA jr8 Garcia, Cindy, RN RN cg Brown, Sophia, PA-C PA-C sb4 Breneman, Mary Beth RN JERAD mb9 Elke Barrientos RN RN nj1 Corrections: (The following items were deleted from the chart) 02/13 19:52 17:54 [place] dinero
[2023-02-13] MEDS ORDERED: MORPHINE 4 MG/ML SYR ONE (18:04)
--- NOTE | 2023-02-13 19:00 | P.HP ---
Certification for Inpatient Patient admitted to: Observation With expected LOS: <2 Midnights Patient will require the following post-hospital care: None Practitioner: I am a practitioner with admitting privileges, knowledge of patient current condition, hospital course, and medical plan of care. Services: Services provided to patient in accordance with Admission requirements found in Title 42 Section 412.3 of the Code of Federal Regulations Patient History Date of Service: 02/13/23 Primary Care Provider: Deniz Reason for admission: Chest Pain, Syncope History of Present Illness: Mr. Clifton is a 67 year old male with past medical history of hypertension, hyperlipidemia, and chronic back pain who presented to the emergency department with complaints of chest pain and syncopal episode. He was seen in this ED 4 days ago for chest pain and had a negative workup, including CT aorta. He states that today he was cleaning his motorcycle when the chest pain began and he got diaphoretic, nauseated. States the pain is in his left chest and radiates down his left arm and left leg. He states he went inside to rest and woke up on the ground, unsure how he got there. His workup in the ED was unremarkable- EKG, chest xray, troponin. Vital signs have been stable. He states that all of his symptoms have persisted, despite aspirin, morphine, and fentanyl. ED provider wishes to admit patient for observation. Allergies hydrocodone Adverse Reaction (Unknown, Verified 02/14/14 02:07) Itching Hydrocodone-Acetaminophen Allergy (Uncoded 02/18/14 08:59) Unknown No Known Allergies Allergy (Uncoded 04/30/18 11:08) Unknown Home Medications: Metaxalone 400 mg PO DAILY 09/19/15 Paroxetine HCl [Paxil] 20 mg PO DAILY 09/19/15 Amlodipine [Norvasc*] 5 mg PO DAILY #30 tab 09/21/15 Metoprolol Tartrate [Lopressor] 50 mg PO BID #60 tab 09/21/15 - Past Medical/Surgical History Diabetic: No -: Hypertension -: Hyperlipidemia -: Chronic Back Pain -: Hernia Repair -: Back Surgery Psychosocial/ Personal History: Patient is . - Family History Family History: Reviewed- Non-Contributory - Social History Smoking Status: Never smoker Alcohol use: No CD- Drugs: No Caffeine use: Yes Place of Residence: Home Review of Systems General: Sweats Cardiovascular: Chest Pain, Other (Syncope) Gastrointestinal: Nausea Physical Examination - Vital Signs Temperature: 98.4 F Blood Pressure: 138/83 Pulse: 78 Respirations: 18 Pulse Ox (%): 98 - Physical Exam General: Alert, Mild distress HEENT: Atraumatic, EOMI, Sclerae nonicteric Neck: Supple, 2+ carotid pulse no bruit Respiratory: Clear to auscultation bilaterally, Normal air movement Cardiovascular: Regular rate/rhythm, Normal S1 S2 Gastrointestinal: Normal bowel sounds, No tenderness Musculoskeletal: No tenderness Integumentary: No rashes Neurological: Normal speech, Normal affect - Studies Laboratory Data (last 24 hrs) 02/13/23 16:02: WBC 11.50 H, Hgb 15.3, Hct 43.7, Plt Count 310 02/13/23 16:02: Sodium 136, Potassium 4.2, BUN 22 H, Creatinine 1.20, Glucose 144 H, Magnesium 1.9 Assessment and Plan - Problems (Diagnosis) (1) HTN (hypertension) Current Visit: Yes Status: Chronic (2) Syncope Current Visit: Yes Status: Acute Qualifiers: Encounter type: initial encounter (3) Chest pain Current Visit: Yes Status: Acute Qualifiers: Chest pain type: unspecified Qualified Code(s): R07.9 - Chest pain, unspecified (4) Hyperlipidemia Current Visit: Yes Status: Chronic Qualifiers: Hyperlipidemia type: unspecified Qualified Code(s): E78.5 - Hyperlipidemia, unspecified - Plan Patient is admitted for further management of chest pain/syncope. Consult cardiology. Obtain echocardiogram and carotid US. Trend troponin. Monitor on telemetry. Check lipid panel, A1c, and TSH. Aspirin and atorvastatin daily. Monitor and replete electrolyte per protocol. Reconcile and continue home medications. Lovenox for VTE prophylaxis. Full code. Discharge Plan: Home Plan to discharge in: 24 Hours - Advance Directives Does patient have a Living Will: No Does patient have a Durable POA for Healthcare: No - Code Status/Comfort Care Code Status Assessed: Yes Code Status: Full Code Physician Review: Patient Assessed, Agree with Above Assessment and Plan Critical Care: No Time Spent Managing Pts Care (In Minutes): 50
[2023-02-13] MEDS ORDERED: DIAZEPAM 10 MG/2 ML INJ SYRINGE ONE (20:30)
[2023-02-13] MEDS: NA CHLORIDE 0.9% 1,000 ML IV SCH ×2 (20:49→22:17)
[2023-02-13] MEDS ORDERED: ONDANSETRON 4 MG/2 ML VIAL IV PRN (20:49)
[2023-02-13] MEDS ORDERED: ACETAMINOPHEN 500 MG TAB PO PRN (20:49)
[2023-02-13] MEDS: QUETIAPINE 100MG TAB PO SCH ×2 (21:00→23:33)
[2023-02-13] MEDS: CYCLOBENZAPRINE 10 MG TAB PO SCH ×2 (21:00→23:34)
[2023-02-13] MEDS: HYDROCODONE/APAP 10/325 TAB PO PRN (22:13)
[2023-02-13] MEDS: ATORVASTATIN 40 MG TAB PO SCH (22:13)
[2023-02-13] MEDS: methocarbamoL 750 MG TAB PO SCH (23:33)
[2023-02-13] MEDS: DIAZEPAM 5 MG TABLET PO SCH (23:33)
[2023-02-14] MEDS: MORPHINE 4 MG/ML SYR IV PRN ×3 (00:58→23:56)
[2023-02-14] MEDS: DIAZEPAM 5 MG TABLET PO SCH ×2 (01:03→20:14)
[2023-02-14 01:07] LABS: Specific Gravity 1.025 (1.005-1.030); Urine Bacteria None Seen /HPF (<20); Urine Bilirubin NEGATIVE (Negative); Urine Blood Negative (Negative); Urine Clarity Clear (Clear); Urine Color Yellow (Yellow); Urine Glucose NEGATIVE (Negative); Urine Mucus Slight /HPF (None Seen); Urine Protein TRACE (Negative); Urine RBC None Seen /HPF (None Seen); Urine Urobilinogen 1+ (Normal)
[2023-02-14 02:56] VITALS: BMI 29.0
[2023-02-14 04:08] LABS: Protime INR 0.96
[2023-02-14] MEDS: HYDROCODONE/APAP 10/325 TAB PO PRN ×3 (04:20→20:14)
[2023-02-14 04:29] LABS: Thyroid Stimulating Hormone 2.67 uIU/mL (0.358-3.740); Troponin High Sensitivity 9.5 pg/mL (<58.9)
[2023-02-14 05:13] VITALS: O2SAT 98
[2023-02-14] MEDS: ENOXAPARIN 40 MG/0.4 ML SQ SCH (07:29)
[2023-02-14] MEDS: PANTOPRAZOLE 40MG TABLET PO SCH (07:30)
[2023-02-14] MEDS: DULOXETINE 30 MG CAP PO SCH ×2 (07:30→20:15)
[2023-02-14] MEDS: ASPIRIN EC 81 MG TAB PO SCH (07:31)
[2023-02-14] MEDS: NA CHLORIDE 0.9% 1,000 ML IV SCH ×2 (07:31→16:27)
[2023-02-14] MEDS: methocarbamoL 750 MG TAB PO SCH ×2 (07:31→20:15)
--- NOTE | 2023-02-14 08:22 | RAD REPORT ---
EXAM DESCRIPTION: - CP - 02/14/2023 1:14 am CLINICAL HISTORY: chest pain, syncope COMPARISON: No comparisons TECHNIQUE: Real-time sonographic grayscale, color duplex, and spectral wave Doppler evaluation of [facility] carotid systems was performed. FINDINGS: Normal high resistance waveforms are noted in both external carotid arteries. The common c arotid arteries and internal carotid arteries show normal low resistance waveforms. Mild smooth echogenic plaque formation is seen at the carotid bulbs bilaterally. Peak systolic veloci ty less than 125 cm/ sec bilaterally. ICA/CCA peak systolic ratios less than 2.0 bilaterally. Antegrade flow seen in both vertebral arteries. IMPRESSION: Mild plaque formation at the carotid bulbs as above. No evidence of a hemodynamically significant stenosis. Evaluation of carotid artery stenosis, if any, is reported based on consensus recommendations of the Society of Radiologists in Ultrasound (Srikanth et al., Radiology, 2003)
[2023-02-14] MEDS: ATORVASTATIN 40 MG TAB PO SCH (20:14)
[2023-02-14] MEDS: CYCLOBENZAPRINE 10 MG TAB PO SCH (20:14)
[2023-02-14] MEDS: QUETIAPINE 100MG TAB PO SCH (20:15)
[2023-02-15] MEDS: HYDROCODONE/APAP 10/325 TAB PO PRN (06:13)
[2023-02-15] MEDS: NA CHLORIDE 0.9% 1,000 ML IV SCH ×2 (06:17→11:49)
[2023-02-15 06:51] LABS: Absolute Lymphocytes (CBC) 2.5 K/uL (0.7-4.9); Hematocrit 37.4 % (39.6-49.0); Lymphocytes % 45.3 % (15.3-44.8); MCV 97.4 fL (80-100); MPV 7.4 fL (7.6-11.3); RBC Red Blood Cell Count 3.84 M/uL (4.33-5.43)
[2023-02-15] MEDS ORDERED: REGADENOSON 0.4 MG/5 ML SYR IV ONE (07:05)
[2023-02-15 07:11] LABS: Albumin 3.1 g/dL (3.4-5.0); Bilirubin Total 0.8 mg/dL (0.2-1.0); Magnesium 1.8 mg/dL (1.6-2.4); Potassium 4.2 mEq/L (3.5-5.1); Protein, Total 6.3 g/dL (6.4-8.2); Troponin High Sensitivity 8.7 pg/mL (<58.9)
--- NOTE | 2023-02-15 07:11 | EKG ---
Test Date: 2023-02-13 Test Time: 15:57:35 Electronic Lab Technician: MB MEASUREMENT RESULTS: Intervals: Rate: 88 HI: 120 QRSD: 88 QT: 356 QTc: 430 [place]: P: 75 HI: 120 QRS: 78 T: 70 INTERPRETIVE STATEMENTS: Normal sinus rhythm Normal ECG Compared to ECG 02/09/2023 01:29:35 Short HI interval no longer present Electronically Signed On 02-15-23 07:07:04 CDT by Quintin Jenkins
[2023-02-15] MEDS: PANTOPRAZOLE 40MG TABLET PO SCH (08:08)
[2023-02-15] MEDS: methocarbamoL 750 MG TAB PO SCH (08:08)
[2023-02-15] MEDS: ENOXAPARIN 40 MG/0.4 ML SQ SCH (08:09)
[2023-02-15] MEDS: DULOXETINE 30 MG CAP PO SCH (08:09)
[2023-02-15] MEDS: ASPIRIN EC 81 MG TAB PO SCH (08:09)
[2023-02-15] MEDS: MORPHINE 4 MG/ML SYR IV PRN (08:14)
--- NOTE | 2023-02-15 08:38 | ECHO ---
HEIGHT: 5 ft 11 in WEIGHT: 208 lb 9.6 oz DATE OF STUDY: 02/14/[address]: Emerita Clifton 2-DIMENSIONAL: YES M.MODE: YES DOPPLER: YES COLOR FLOW: YES TDS: PORTABLE: YES DEFINITY: BUBBLE STUDY: DIAGNOSIS: CHEST PAIN, SYNCOPE CARDIAC HISTORY: CATHERIZATION: NO SURGERY: NO PROSTHETIC VALVE: NO PACEMAKER: NO MEASUREMENTS (cm) DIASTOLIC (NORMALS) SYSTOLIC (NORMALS) IVSd 1.1 (0.6-1.2) LA Diam 2.6 (1.9-4.0) LVEF 71% LVIDd 4.6 (3.5-5.7) LVIDs 27 (2.0-3.5) %FS 41% LVPWd 1.0 (0.6-1.2) Ao Diam 2.6 (2.0-3.7) 2 DIMENSIONAL ASSESSMENT: RIGHT ATRIUM: NORMAL LEFT ATRIUM: NORMAL RIGHT VENTRICLE: NORMAL LEFT VENTRICLE: NORMAL TRICUSPID VALVE: NORMAL MITRAL VALVE: NORMAL PULMONIC VALVE: NORMAL AORTIC VALVE: NORMAL PERICARDIAL EFFUSION: NONE AORTIC ROOT: NORMAL LEFT VENTRICULAR WALL MOTION: NORMAL DOPPLER/COLOR FLOW: NORMAL COMMENTS: 1. NORMAL 2-DIMENSIONAL ECHOCARDIOGRAM WITH DOPPLER. 2. NO WALL MOTION ABNORMALITY 3. NO EFFUSION TECHNOLOGIST: BRENDEN GARCIA
--- NOTE | 2023-02-15 08:53 | RAD REPORT ---
EXAM DESCRIPTION: NM - Rest Stress Cardiac Imaging - 02/15/2023 8:39 am CLINICAL HISTORY: Chest pain. COMPARISON: 2015 TECHNIQUE: The patient was administered 10. mCi of Tc 99m Sestamibi prior to resting SPECT imaging o f the heart. The patient was then administered 30. MCi of Tc 99m Sestamibi following exercise or pha rmacologic stress. Multiplanar SPECT images were reviewed. FINDINGS: A large area of diminished radiotracer activity involves the inferior apical left ventricu lar myocardium on rest and stress sequences. The left ventricular ejection fraction equals 55% IMPRESSION: Large area of diminished radiotracer activity involving the inferior apical left ventric ular myocardium which appears fixed. It is uncertain whether this is secondary to a combination of at tenuation from the diaphragm and technical factors or infarction. There is no evidence of stress-induced ischemia
--- NOTE | 2023-02-15 08:53 | TREADPHA ---
DX: CHEST PAIN, SYNCOPE Date of Study: 02/15/2023 Ht: 5' 11 " Wt: 208 lb 9.6 oz Consulting Physician: ADILENE MEDICATIONS: TYLENOL, NORCO, ASPIRIN, LIPITOR, FLEXERIL, VALIUM, CYMBALTA, LOVENOX, ROBAXIN, MORPHINE, ZOFRAN, PROTONIX, SEROQUEL HISTORY: 67 YEAR OLD MALE WITH COMPLAINTS OF CHEST PAIN. HISTORY OF HYPERTENSION, HYPERLIPIDEMIA, AND DEPRESSION. DENIES PREVIOUS HEART SURGERIES, ALCOHOL, DRUG USE OR SMOKING. PHYSICIAL EXAMINATION: RESTING B.P.: 143/77 RESTING H.R.: 56 RESTING EKG: NORMAL ELECTROCARDIOGRAM PROTOCOL: PHARMACOLOGIC EXERCISE TIME: 3:30 B.P. AT PEAK STRESS: 132/64 IMPRESSION: LEXISCAN INJECTED. CARDIOLITE GIVEN PER PROTOCOL. SEE NUCLEAR MEDICINE REPORT. OCCASIONAL PREMATURE VENTRICULAR COMPLEXES NOTED PRIOR TO INJECTION. NO SUPRAVENTRICULAR TACHYCARDIA, VENTRICULAR TACHYCARDIA, PREMATURE ATRIAL COMPLEXES NOTED. DENIES SHORTNESS OF BREATH OR CHEST PAIN.
[2023-02-15] MEDS ORDERED: MAGNESIUM SULFATE 1 gm IVPB 1 GM/100 ML BAG IV ONE (09:00)
[2023-02-15] MEDS ORDERED: dexAMETHasone 4 MG/ML VIAL IV ONE (11:26)
--- NOTE | 2023-02-15 12:15 | CON ---
Date of Consultation: 02/14/2023 Reason For Consultation: Chest pain and syncope. History Of Present Illness: Mr. Clifton is 67. Has a past medical history of gastroesophageal reflux disease, hypertension, dyslipidemia, depression and anxiety. Came in with syncope, atypical chest pa in, normally sees Dr. Guaman. Denies nausea, vomiting, diaphoresis, PND, orthopnea, pedal edema, or pa lpitations. Denied any fever or chills. He is already ruled out for an MA. Carotid is unremarkable . Echo is pending and Lexiscan is pending. Past Medical History: As stated above. Allergies: NONE. Review of Systems: Negative. Social History: Negative. Family History: Negative. Medications: Include Norvasc, Lipitor, Protonix, Lopressor, Cymbalta, and Valium. Physical Examination: Vital Signs: Stable, afebrile. HEENT: Negative. Neck: Supple with no bruit. Chest: Clear. Cardiac: Revealed a regular rhythm and rate. No murmurs, gallops, or rubs. Abdomen: Benign. Extremities: Revealed no clubbing, cyanosis, or edema. Diagnostic Data: Within normal limit. Impression And Plan: The patient with hypertension, dyslipidemia, anxiety, depression, gastroesophag eal reflux disease, certainly with multiple cardiac risk factors. I agree with the Pat klein and lilibeth nguyen. We will see what they show before making further decisions. ERI/BLAKE Voice ID: [id number] Report ID: [id number]
[2023-02-15 12:44] VITALS: BP 161/79; TEMP 98
[2023-02-15] MEDS ORDERED: HYDROMORPHONE HCL 0.5 MG/0.5 ML INJ IV ONE (13:00)
== END 2023-02-15 15:04 | disposition home or self-care (01) ==
LOC: ER 15:52 → ERHOLD 18:55 → 2ND 20:30
PROVIDERS: ADMIT Hospitalist; ATTEND Hospitalist
DX: R07.9 Chest pain, unspecified (principal); R55 Syncope and collapse; I10 Essential (primary) hypertension; E78.5 Hyperlipidemia, unspecified; M54.9 Dorsalgia, unspecified; K21.9 Gastro-esophageal reflux disease without esophagitis; F32.A Depression, unspecified; F41.9 Anxiety disorder, unspecified; Z88.6 Allergy status to analgesic agent
CPT/HCPCS: 93017; 93306; 85025 ×2; 81001; 80048; 36415 ×2; 83735 ×2; 85610; 80061; 85730; 84443; 83036; 84484 ×4; 80053; 83880 ×2; 70450; 71045; 93880; 78452; 96375; 96374; 99285; J3475; J2785; J1100; J1650 ×2; J3360; J3010; J1170; J2405 ×2; J7030 ×5; A9500; G0378 ×5

== ENCOUNTER 2023-02-17 15:14 | Emergency (ER) | payer OTHER ==
--- OUTSIDE RECORDS SUMMARY | 2023-02-17 15:17 | XMS REPORT | Continuity of Care Document ---
:1955 Author Organization [facility] t Address [address] [facility] [address] [place] [id number] Care Team Providers Name Role Phone Unavailable Unavailable Unavailable Payers Payer Name Policy Type Policy Number Effective Date Expiration Date S [facility] 2022 (MEDICARE 00:00:00 REPLACEMENT HMO) Problems This patient has no known problems. Allergies, Adverse Reactions, Alerts This patient has no known allergies or adverse reactions. Medications This patient has no known medications. Procedures This patient has no known procedures. Encounters Start End Encounter Admission Attending Care Care Encounter Source Date/Time Date/Time Type Type Clinicians Facility Department ID 2022-07-27 2022-07-27 Outpatient [facility] [id number] [facility] 00:00:00 00:00:00 [id number] [facility] Results This patient has no known results.
--- NOTE | 2023-02-17 16:09 | RAD REPORT ---
EXAM DESCRIPTION: RADChest Single View02/17/2023 3:58 pm CLINICAL HISTORY: CHEST PAIN COMPARISON: Chest Single View dated 02/13/2023; Chest Single View dated 02/09/2023; Chest Single View dated 04/15/2021; Chest Single View dated 04/30/2018Chest Single View dated 02/13/2023; Chest Single Vie w dated 02/09/2023; Chest Single View dated 04/15/2021; Chest Single View dated 04/30/2018 TECHNIQUE: Portable AP view of the chest. FINDINGS: The lungs are clear. No pneumothorax or effusion. The cardiomediastinal contours are unre markable. IMPRESSION: No acute cardiopulmonary process.
[2023-02-17 16:20] LABS: Hematocrit 41.1 % (39.6-49.0); Lymphocytes % 30.8 % (15.3-44.8); MCV 94.2 fL (80-100); MPV 7.5 fL (7.6-11.3); RBC Red Blood Cell Count 4.37 M/uL (4.33-5.43)
[2023-02-17] MEDS ORDERED: MAGNES/ALUMIN/SIMET 30ML UCUP ONE (16:39)
[2023-02-17] MEDS ORDERED: FAMOTIDINE 20 MG/2 ML VIAL IV ONE (16:39)
[2023-02-17] MEDS ORDERED: SUCRALFATE 1 GM TABLET ONE (16:39)
[2023-02-17 16:42] LABS: Albumin 4.2 g/dL (3.4-5.0); Bilirubin Direct 0.2 mg/dL (0-0.2); Bilirubin Indirect, Calculated 0.4 mg/dL (0.2-0.8); Bilirubin Total 0.6 mg/dL (0.2-1.0); Protein, Total 7.8 g/dL (6.4-8.2); Troponin High Sensitivity 16.5 pg/mL (<58.9)
[2023-02-17] MEDS ORDERED: KETOROLAC 30 MG/ML INJ ONE (17:47)
--- NOTE | 2023-02-17 19:16 | RAD REPORT ---
EXAM DESCRIPTION: CT - Abdomen Pelvis W Contrast - 02/17/2023 6:25 pm CLINICAL HISTORY: back pain, elevated lipase COMPARISON: Abdomen Pelvis W Contrast dated 04/30/2018; Angio Aorta For Dissection dated 02/09/2023 TECHNIQUE: Thin cut axial CT imaging of the abdomen and pelvis was performed following intravenous a dministration of 70 mL Isovue 300. Multiplanar reformats were generated and reviewed. All CT scans are performed using dose optimization technique as appropriate and may include automated exposure control or mA/KV adjustment according to patient size. FINDINGS: No suspicious findings in the lung bases. The liver, spleen, and pancreas show no suspicious findings. Suspected right small adrenal nodules no t exceeding 11 millimeter, stable. Gallbladder and biliary tree are also without suspicious finding. Symmetric renal function is seen with no hydronephrosis or suspicious renal mass. Left renal cortical anterior midpole cyst is stable. No dilated bowel loops or bowel wall thickening. No free air, free fluid or inflammatory stranding. N o hernia, mass or bulky lymphadenopathy. The urinary bladder is without significant finding. No suspicious bony findings. Degenerative changes of the lumbar spine again seen, most pronounced at L4-5, with suspected stenosis. IMPRESSION: No acute intra-abdominal process. Stable incidental findings as above.
--- NOTE | 2023-02-17 19:37 | ER ---
Nurse's Notes [facility] Name: Lanre Clifton Jr Age: 67 yrs Sex: Male : 1955 Arrival Date: 02/17/2023 Time: 15:14 Bed 14 Private MD: Diagnosis: Low back pain Presentation: 02/17 15:19 Chief complaint: Patient states: Not feeling well since this morning. CP that ss progressed throughout the day. Pt was seen and admitted to hospital for CP, but told everything was ok. Coronavirus screen: Client denies travel out of the [place] in the last 14 days. Ebola Screen: Patient denies exposure to infectious person. Patient denies travel to an Ebola-affected area in the 21 days before illness onset. Initial Sepsis Screen: Does the patient meet any 2 criteria? No. Patient's initial sepsis screen is negative. Does the patient have a suspected source of infection? No. Patient's initial sepsis screen is negative. Risk Assessment: Do you want to hurt yourself or someone else? Patient reports no desire to harm self or others. Onset of symptoms was February 17, 2023. 15:19 Method Of Arrival: Wheelchair ss 15:19 Acuity: INGRID 2 ss Historical: - Allergies: 15:20 No Known Allergies; ss - PMHx: 15:20 chronic back pain; Hypercholesterolemia; Hypertensive disorder; ss - Immunization history:: Client reports having NOT received the Covid vaccine. - Social history:: Smoking status: Patient denies any tobacco usage or history of. Screenin:49 [facility] ED Fall Risk Assessment (Adult) History of falling in the last 3 months, nj1 including since admission No falls in past 3 months (0 pts) Confusion or Disorientation No (0 pts) Intoxicated or Sedated No (0 pts) Impaired Gait No (0 pts) Mobility Assist Device Used No (0 pt) Altered Elimination No (0 pt) Score/Fall Risk Level 0 - 2 = Low Risk Oriented to surroundings, Maintained a safe environment, Hourly rounding (assess needs \T\ fall precautionary measures) done. Abuse screen: Denies threats or abuse. Denies injuries from another. Nutritional screening: No deficits noted. Tuberculosis screening: No symptoms or risk factors identified. Assessment: 16:40 General: Appears in no apparent distress. uncomfortable, Behavior is calm, cooperative, nj1 appropriate for age. 16:40 Pain: Complains of pain in Left lower back Pain radiates to left buttock Pain currently nj1 is 10 out of 10 on a pain scale. Neuro: Level of Consciousness is awake, alert, obeys commands, Oriented to person, place, time, situation. Cardiovascular: Denies chest pain, Patient's skin is warm and dry. Respiratory: Airway is patent Respiratory effort is even, unlabored. Musculoskeletal: Reports pain in back. 17:40 Reassessment: Patient appears in no apparent distress at this time. Patient and/or nj1 family updated on plan of care and expected duration. Pain level reassessed. Patient is alert, oriented x 3, equal unlabored respirations, skin warm/dry/pink. Pain: Complains of pain in back Pain currently is 10 out of 10 on a pain scale. 19:50 Reassessment: Patient appears in no apparent distress at this time. Patient and/or nj1 family updated on plan of care and expected duration. Pain level reassessed. Patient is alert, oriented x 3, equal unlabored respirations, skin warm/dry/pink. 19:50 Reassessment: Pt ready to go, has already taken bp cuff, pulse oxymeter and cardiac nj1 leads off. Does not want to wait for this RN to re assess vital signs. Vital Signs: 15:19 BP 186 / 87; Pulse 88; Resp 24; Temp 98.2(O); Pulse Ox 100% on R/A; Weight 94.35 kg; ss Height 5 ft. 11 in. ; Pain 9/10; 16:46 BP 184 / 99; Pulse 72; Resp 18; Pulse Ox 99% on R/A; Pain 10/10; nj1 17:40 BP 176 / 92; Pulse 73; Resp 15; Pulse Ox 99% on R/A; Pain 10/10; nj1 15:19 Body Mass Index 29.01 (94.35 kg, 180.34 cm) ss 15:19 Pain Scale: Adult ss 16:46 Pain Scale: Adult nj1 17:40 Pain Scale: Adult nj1 ED Course: 15:15 Patient arrived in ED. im 15:16 Miah Love MD is Attending Physician. bs3 15:20 Triage completed. ss 15:20 Arm band placed on right wrist. ss 16:00 XRAY Chest (1 view) In Process Unspecified. EDMS 16:03 Initial lab(s) drawn, by me, sent to lab. Inserted saline lock: 22 gauge in right tm3 antecubital area, using aseptic technique. 16:17 Elke Barrientos, JERAD is Primary Nurse. nj1 16:49 Patient has correct armband on for positive identification. Placed in gown. Bed in low nj1 position. Call light in reach. Adult w/ patient. 16:49 Client placed on continuous cardiac and pulse oximetry monitoring. NIBP monitoring nj1 applied. 16:50 Patient maintains SpO2 saturation greater than 95% on room air. nj1 18:27 CT Abd/Pelvis - IV Contrast Only In Process Unspecified. EDMS 19:35 Maurice Jimenez MD is Referral Physician. bs3 19:50 No provider procedures requiring assistance completed. nj1 19:50 IV discontinued, intact, bleeding controlled. nj1 Administered Medications: 16:40 Drug: Famotidine IVP 20 mg Route: IVP; Site: right antecubital; nj1 18:00 Follow up: Response: No adverse reaction nj1 16:40 Drug: Alum-Mag Hydroxide-Simeth PO Suspension (200 mg-200 mg-20 mg/5 mL) 30 ml Route: nj1 PO; 18:00 Follow up: Response: No adverse reaction nj1 16:40 Drug: Sucralfate PO 1 grams Route: PO; nj1 18:00 Follow up: Response: No adverse reaction nj1 17:40 Drug: Ketorolac IVP 15 mg Route: IVP; Site: right antecubital; nj1 18:00 Follow up: Response: No adverse reaction nj1 17:48 CANCELLED (Physician Discretion; per Dr. barth): Promethazine MD Suppository 25 mg MD once hb 19:50 Drug: Cyclobenzaprine PO 10 mg Route: PO; nj1 19:55 Follow up: Response: No adverse reaction nj1 Medication: 19:50 VIS not applicable for this client. nj1 Outcome: 19:36 Discharge ordered by . bs3 19:50 Discharged to home ambulatory, via wheelchair, with family. nj1 19:50 Condition: stable 19:50 Discharge instructions given to patient, family, Instructed on discharge instructions, follow up and referral plans. medication usage, Demonstrated understanding of instructions, follow-up care, medications, Prescriptions given X 1. 19:55 Patient left the ED. nj1 Signatures: Dispatcher [employer] EDMS Jericho Gregory tm3 Willow Jack RN RN Miah Love MD MD bs3 Elke Barrientos RN RN nj1 Gretchen Batsita Heather RN Corrections: (The following items were deleted from the chart) 20:23 20:22 Patient left the ED. nj1 nj1
--- NOTE | 2023-02-17 19:37 | EDPHYS ---
Physician Documentation [facility] Name: Lanre Clifton Jr Age: 67 yrs Sex: Male : 1955 Arrival Date: 02/17/2023 Time: 15:14 Bed 14 Private MD: ED Physician Miah Love HPI: 02/17 15:28 This 67 yrs old Male presents to ER via Wheelchair with complaints of Chest bs3 Pain. 15:28 The patient or guardian reports chest pain that is located primarily in the Left-sided. bs3 Onset: acutely. The pain radiates to Left side of body. Associated signs and symptoms: The patient has no apparent associated signs or symptoms. The chest pain is described as dull, a heaviness. Duration: The patient or guardian reports a single episode. Modifying factors: The symptoms are alleviated by nothing. the symptoms are aggravated by nothing. 67-year-old history of chronic back pain hyperlipidemia hypertension seen recently for chest pain with a negative work-up including stress test, echo, CT angiogram presents with recurrent pain that started at rest. He was lying on the couch when the pain started. His pain was similar to his prior episode. On further history it seems like it is much more of a back pain than anything.. Historical: - Allergies: 15:20 No Known Allergies; ss - PMHx: 15:20 chronic back pain; Hypercholesterolemia; Hypertensive disorder; ss - Immunization history:: Client reports having NOT received the Covid vaccine. - Social history:: Smoking status: Patient denies any tobacco usage or history of. ROS: 15:28 Constitutional: Negative for fever, chills bs3 15:28 All other systems are negative. Exam: 15:28 Constitutional: Appears uncomfortable Head/Face: Normocephalic, atraumatic. Eyes: bs3 Pupils equal round and reactive to light, extra-ocular motions intact. Lids and lashes normal. ENT: mmm, no posterior phyarngeal erythema Neck: Trachea midline, no thyromegaly, no neck stiffness Cardiovascular: Regular rate and rhythm with a normal S1 and S2. symmetric pulses in upper extremities Respiratory: Lungs have equal breath sounds bilaterally, clear to auscultation, no respiratory distress Abdomen/GI: Soft, non-tender, no rebound or guarding Skin: Warm, dry with normal turgor. Normal color with no rashes, no lesions, and no evidence of cellulitis. MS/ Extremity: Pulses equal, no cyanosis. Neurovascular intact. Full, normal range of motion. Neuro: Awake and alert, GCS 15, oriented to person, place, time, and situation. Cranial nerves II-XII grossly intact. Motor strength 5/5 in all extremities. Sensory grossly intact. Psych: Awake, alert, with orientation to person, place and time. Behavior, mood, and affect are within normal limits. 15:28 Normal sinus rhythm at [address] elevations or depressions QTc 454 as interpreted by bs3 myself it is not significantly changed from EKG from 02/13/2023 at 1557 Vital Signs: 15:19 BP 186 / 87; Pulse 88; Resp 24; Temp 98.2(O); Pulse Ox 100% on R/A; Weight 94.35 kg; ss Height 5 ft. 11 in. ; Pain 9/10; 16:46 BP 184 / 99; Pulse 72; Resp 18; Pulse Ox 99% on R/A; Pain 10/10; nj1 17:40 BP 176 / 92; Pulse 73; Resp 15; Pulse Ox 99% on R/A; Pain 10/10; nj1 15:19 Body Mass Index 29.01 (94.35 kg, 180.34 cm) ss 15:19 Pain Scale: Adult ss 16:46 Pain Scale: Adult nj1 17:40 Pain Scale: Adult nj1 MDM: 15:16 Patient medically screened. [facility] 15:28 Data reviewed: vital signs, nurses notes. ED course: Patient with atypical chest pain bs3 who was seen here recently his symptoms are similar to a possible dissection however he already had a CT angiogram which was negative for dissection making this much less likely we will repeat labs we will rule out acute coronary syndrome will treat for possible GI pathology. 15:45 ED course: On further history it seems much more back pain than anything else is not bs3 particularly positional however his entire cardiac work-up has been negative he has never had an endoscopy or colonoscopy we will treat for possible GI etiology will rule out ACS and reassess. 19:35 ED course: Work-up completely negative I discussed this with the patient and family bs3 recommended he follow-up with Dr. Maurice Gaxiola for pain management possible spine we will trial muscle relaxant. 19:38 ED course: On further history and the history by the RN his pain is really mostly in bs3 his low back and his notes that he seen Dr. Guaman multiple times for back pain refused to go to chiropractic we had a long shared decision-making conversation this is likely acute on chronic back pain and he would benefit from pain management follow-up as well as possible spine eval with an MRI given his stenosis he has no focal weakness no urinary incontinence no bowel incontinence no saddle anesthesias not consistent with cauda equina. 02/17 15:22 Order name: CBC with Diff; Complete Time: 16:55 bs3 02/17 15:22 Order name: LFT's; Complete Time: 16:55 bs3 02/17 15:22 Order name: Troponin HS; Complete Time: 16:55 bs3 02/17 15:26 Order name: Lipase; Complete Time: 16:55 bs3 02/17 17:40 Order name: BMP; Complete Time: 19:17 bs3 02/17 18:00 Order name: Troponin High Sensitivity; Complete Time: 19:25 bs3 02/17 15:22 Order name: XRAY Chest (1 view); Complete Time: 16:55 bs3 02/17 17:10 Order name: CT Abd/Pelvis - IV Contrast Only; Complete Time: 19:25 bs3 02/17 15:22 Order name: EKG; Complete Time: 15:23 bs3 02/17 15:22 Order name: Cardiac monitoring; Complete Time: 15:30 bs3 02/17 15:22 Order name: EKG - Nurse/Tech; Complete Time: 15:29 bs3 02/17 15:22 Order name: IV Saline Lock; Complete Time: 16:46 bs3 02/17 15:22 Order name: Labs collected and sent; Complete Time: 16:46 bs3 02/17 15:22 Order name: O2 Per Protocol; Complete Time: 15:29 bs3 02/17 15:22 Order name: O2 Sat Monitoring; Complete Time: 16:46 bs3 Administered Medications: 16:40 Drug: Famotidine IVP 20 mg Route: IVP; Site: right antecubital; nj1 18:00 Follow up: Response: No adverse reaction nj1 16:40 Drug: Alum-Mag Hydroxide-Simeth PO Suspension (200 mg-200 mg-20 mg/5 mL) 30 ml Route: nj1 PO; 18:00 Follow up: Response: No adverse reaction nj1 16:40 Drug: Sucralfate PO 1 grams Route: PO; nj1 18:00 Follow up: Response: No adverse reaction nj1 17:40 Drug: Ketorolac IVP 15 mg Route: IVP; Site: right antecubital; nj1 18:00 Follow up: Response: No adverse reaction nj1 17:48 CANCELLED (Physician Discretion; per Dr. s): Promethazine MA Suppository 25 mg MA once hb 19:50 Drug: Cyclobenzaprine PO 10 mg Route: PO; nj1 19:55 Follow up: Response: No adverse reaction nj1 Disposition Summary: 02/17/23 19:36 Discharge Ordered Location: Home bs3 Problem: an acute exacerbation bs3 Symptoms: have improved bs3 Condition: Stable bs3 Diagnosis - Low back pain bs3 Followup: bs3 - With: Maurice Jimenez MD - When: 1 week - Reason: Recheck today's complaints Discharge Instructions: - Discharge Summary Sheet bs3 - Acute Back Pain, Adult bs3 - Musculoskeletal Pain bs3 Forms: - Medication Reconciliation Form bs3 - Thank You Letter bs3 - Antibiotic Education bs3 - Prescription Opioid Use bs3 Prescriptions: - tizanidine 2 mg Oral tablet - take 1 tablet by ORAL route every 6 to 8 hours as needed for muscle spasticity; bs3 do not exceed 3 doses per 24 hrs; 12 tablet; Refills: 0, Product Selection Permitted Signatures: Dispatcher [employer] [facility] Willow Jack RN RN Marleny Martínez RN RN Miah Love MD MD bs3 Elke Barrientos RN RN nj1 Corrections: (The following items were deleted from the chart) 15:45 15:28 67-year-old history of chronic back pain hyperlipidemia hypertension seen bs3 recently for chest pain with a negative work-up including stress test, echo, CT angiogram presents with recurrent pain that started at rest. He was lying on the couch when the pain started. His pain was similar to his prior episode. . bs3 17:48 17:45 Promethazine MA Suppository 25 mg MA once ordered. bs3 hb 17:48 17:48 Promethazine MA Suppository 25 mg MA once ordered. hb hb
[2023-02-17] MEDS ORDERED: CYCLOBENZAPRINE 10 MG TAB ONE (19:50)
[2023-02-17 21:00] VITALS: TEMP 98.2
[2023-02-17 21:01] VITALS: O2SAT 99
[2023-02-17 21:03] VITALS: BP 176/92
--- NOTE | 2023-02-19 14:21 | EKG ---
Test Date: 2023-02-17 Test Time: 15:26:09 Director Of Business Applications: SHAMIR MEASUREMENT RESULTS: Intervals: Rate: 79 OH: 108 QRSD: 96 QT: 396 QTc: 454 [place]: P: 52 OH: 108 QRS: 54 T: 38 INTERPRETIVE STATEMENTS: Sinus rhythm with short OH with premature atrial complexes Otherwise normal ECG Compared to ECG 02/13/2023 15:57:35 Atrial premature complex(es) now present Short OH interval now present Electronically Signed On 02-19-23 14:17:39 CDT by Nilay Jones
== END 2023-02-17 20:22 | disposition home or self-care (01) ==
LOC: ER 15:14
DX: M54.50 Low back pain, unspecified (principal); R07.89 Other chest pain; I10 Essential (primary) hypertension
CPT/HCPCS: 93005; 85025; 80048; 36415; 80076; 84484 ×2; 83690; 74177; 71045; 96375; 96374; 99285; Q9967

== ENCOUNTER 2023-03-01 21:22 | Emergency (ER) | payer OTHER ==
--- OUTSIDE RECORDS SUMMARY | 2023-03-01 21:25 | XMS REPORT | Continuity of Care Document ---
:1955 Author Organization [facility] t Address [address] [place] [address] Care Team Providers Name Role Phone SEGUN CUADRA Primary Care Physician Unavailable Ben Plata MD Attending Clinician BEN PLATA Attending Clinician Unavailable BEN PLATA Admitting Clinician Unavailable Payers Payer Name Policy Type Policy Number Effective Date Expiration Date S [facility] 2022 (MEDICARE 00:00:00 REPLACEMENT HMO) Problems This patient has no known problems. Allergies, Adverse Reactions, Alerts Allergy Allergy Status Severity Reaction(s) Onset Inactive Treating Comm ents Source Name Type Date Date Clinician NO KNOWN Drug Active [facility] ALLERGIE Class ity of [facility] Social History Social Habit Start Date Stop Date Quantity Comments Source Sex Assigned At [birth year] [facility] 00:00:00 00:00:00 Medical Branch Smoking Status Start Date Stop Date Source Tobacco smoking consumption [facility] Branch Medications Ordered Filled Start Stop Current Ordering Indication Dosage Frequency Signature Comments Components Source Medication Medication Date Date Medication? Clinician (SIG) Name Name methylpredn No 125mg 125 mg, U nivers isolone sod 02-19 Slow IV ity of succ 04:45: 05:03 Startex, [place] (SOLU-MEDRO 00 :00 ONCE, 1 Medic al L) dose, On Branch injection 02/18/23 125 mg at 2345, IVANA FENTanyl PF No 100ug 100 mcg, Univers (SUBLIMAZE 02-19 Slow IV ity o f (PF)) 04:45: 04:33 Push, [place] injection 00 :00 ONCE, 1 Medical 100 mcg dose, On Branch 02/18/23 at 2345, Routine ondansetron 2022- No 4mg 4 mg, Slow Univers (ZOFRAN 02-19 IV Push, ity of (PF)) 03:00: 03:17 ONCE, 1 [place] injection 4 00 :00 dose, On Medi conrado mg 02/18/23 Branch at 2200, STAT morpHINE (4 2022- No 4mg 4 mg, Slow Univers mg/mL) 02-19 IV Push, ity of injection 4 03:00: 03:17 ONCE, 1 [place] mg 00 :[place] dose, On Medical 02/18/23 Branch at 2200, IVANA NaCl 0.9% 2022- No 30mL/kg at 999 Un solomon (NS) bolus 02-19 mL/hr, ity of infusion 03:00: 05:01 2,829 mL [place] 2,829 [place] 00 :00 (30 mL/kg Medica l ?94.3 kg), Branch IV Infusion, ONCE, 1 dose, On 02/18/23 at 2200, IVANA cyclobenzap Yes [id number] 10mg Take 1 Univers rine 10 mg -03 tablet by ity of tablet 00:00: mouth 2 [place] 00 (two) Medical times Branch daily as needed for Muscle Spasms for up to 10 doses. ibuprofen Yes [id number] 400mg Take 2 Univers (MOTRIN IB) 6-03 tablets by it y of 200 mg 00:00: mouth [place] tablet 00 every 6 Medical (six) Branch hours as needed for Pain (scale 1-3) for up to 30 doses. predniSONE 2022- Yes [id number] 20mg Take 1 Univers 20 mg -11 21-06 tablet by ity of tablet 00:00: 04:59 mouth in [place] 00 :00 the Medical morning Branch and 1 tablet in the evening. Do all this for 2 days. Vital Signs Vital Name Observation Time Observation Value Comments Source Systolic blood 2023-02-19 04:33:00 177 mm[Hg] Univer sity of pressure [facility] Diastolic blood 2023-02-19 04:33:00 92 mm[Hg] Unive rsity of [facility] Heart rate 2023-02-19 04:33:00 79 /min [facility] Respiratory rate 2023-02-19 04:33:00 18 /min General acute hospital Oxygen saturation in 2023-02-19 04:33:00 99 /min [facility] Arterial blood by [facility] Pulse oximetry [place] Body temperature 2023-02-19 02:31:00 36.5 [facility] height 2023-02-19 02:31:00 180.3 cm [facility] Body weight 2023-02-19 02:31:00 94.348 kg [facility] BMI 2023-02-19 02:31:00 29.01 kg/m2 [facility] Procedures Procedure Date / Time Performed Performing Clinician [facility] e ASSIGNMENT OF BENEFITS 2023-02-19 05:17:57 Doctor Unassigned, No [facility] Name [facility] EKG-12 LEAD 2023-02-19 04:58:01 Ben Plata [facility] URINALYSIS 2023-02-19 04:24:00 Ben Plata [facility] COVID-19 (ID NOW RAPID 2023-02-19 03:18:00 Ben Plata [facility] TESTING) [facility] CT ABDOMEN PELVIS WO 2023-02-19 03:14:17 Ben Plata Un [facility] CONTRAST [facility] XR CHEST 2 VW 2023-02-19 03:14:02 Ben Plata [facility] AC ABG + LACTIC ACID 2023-02-19 03:13:00 [facility] 2023-02-19 02:50:00 Ben Plata [facility] TROPONIN I 2023-02-19 02:50:00 Ben Plata [facility] COMP. METABOLIC PANEL 2023-02-19 02:50:00 Ben Plata [facility] ([id number]) [facility] CBC WITH DIFF 2023-02-19 02:50:00 Ben Plata [facility] N-TERMINAL PRO-BNP 2023-02-19 02:50:00 Ben Plata [facility] CONSENT/REFUSAL FOR 2023-02-19 02:21:16 Doctor Unassigned, No Un [facility] DIAGNOSIS AND Name [facility] Branch TREATMENT Encounters Start End Encounter Admission Attending Care Care Encounter Source Date/Time Date/Time Type Type Clinicians Facility Department ID 2023-02-18 2023-02-19 Emergency [facility] [id number] Univers 21:32:00 00:21:00 Ben LOPEZ [id number] i ty of Michael [place] [id number] [facility] [id number] [facility] 084 Branch 2023-02-18 2023-02-19 Emergency [facility] [id number] Univers 21:32:00 00:21:00 [facility] 2022-07-27 2022-07-27 Outpatient DMG DMG [id number] [facility] 00:00:00 00:00:00 [id number] Medica l Group Results Test Description Test Time Test Comments Results Result Comments Source CBC with Differential 2023-02-19 04:00:10 Test Item Value Reference Range Interpretation Comme nts WBC (test code = 6690-2) 12.95 See_Comment H [A utomated message] The system which ge nerated this result transmit rubin reference range: 4.20 - 1 0.70 10*3/?L. The reference r juan was not used to interpr et this result as normal/abnor mal. RBC (test code = 789-8) 4.85 See_Comment [Au tomated message] The system which ge nerated this result transmit rubin reference range: 4.26 - 5 .52 10*6/?L. The reference r juan was not used to interpr et this result as normal/abnor mal. HGB (test code = 718-7) 16.2 g/dL 12.2-16.4 HCT (test code = 4544-3) 43.3 % 38.4-49.3 MCV (test code = 787-2) 89.3 fL 81.7-95.6 MCH (test code = 785-6) 33.4 pg 26.1-32.7 H MCHC (test code = 786-4) 37.4 g/dL 31.2-35.0 H RDW-SD (test code = 39516-8) 39.8 fL 38.5-51.6 RDW-CV (test code = 788-0) 12.1 % 12.1-15.4 PLT (test code = 777-3) 298 See_Comment [Au tomated message] The system which ge nerated this result transmit rubin reference range: 150 - 32 8 10*3/?L. The reference range was not used to interpret th is result as normal/abnormal . MPV (test code = 64643-1) 9.5 fL 9.8-13.0 L NRBC/100 WBC (test code = 0.0 See_Comment [ Automated message] The [id number]) system which ge nerated this result transmit rubin reference range: 0.0 - 10 .0 /100 WBCs. The reference r juan was not used to interpr et this result as normal/abnor mal. NRBC x10^3 (test code = See_Comment [Au tomated message] The 3558793338) system which ge nerated this result transmit rubin reference range: 10*3/?L. The reference range was not u sed to interpret this result as normal/abnormal . GRAN MAT (NEUT) % (test code 54.6 % = 770-8) IMM GRAN % (test code = 1.30 % 0940315433) LYMPH % (test code = 736-9) 33.9 % MONO % (test code = 5905-5) 9.0 % EOS % (test code = 713-8) 0.5 % BASO % (test code = 706-2) 0.7 % GRAN MAT x10^3(ANC) (test 7.06 10*3/uL 1.99-6.95 H code = 8837971502) IMM GRAN x10^3 (test code = 0.17 10*3/uL 0.00-0.06 H 8156141151) LYMPH x10^3 (test code = 4.39 10*3/uL 1.09-3.23 H 731-0) MONO x10^3 (test code = 1.17 10*3/uL 0.36-1.02 H 742-7) EOS x10^3 (test code = 0.07 10*3/uL 0.06-0.53 711-2) BASO x10^3 (test code = 0.09 10*3/uL 0.01-0.09 704-7) LG GRAN LYMPHS (test code = Rare Rare 7292390047) REACT LYMPHS (test code = Rare 9845614049) Lab Interpretation (test Abnormal code = 28158-3) [facility] [id number] 03:29:35 Test Item Value Reference Range Interpretation Comments TROPONIN I (test code = 0.008 ng/mL <=0.034 4994172326) DAVID (test code = DAVID) Reference (Normal) Range (defined by the 99th percentile reference limit): <= 0.034 ng/mL Note: Cardiac troponin begins to rise 3-4 hours after the onset of ischemia. Repeat in 4-6 hours if the sample was drawn within 3-4 hours of the onset of the symptom and found normal. Diagnosis of myocardial injury is made with acute changes in cTn concentrations with at least one serial sample above the 99th percentile upper reference limit (URL), taken together with the patient's clinical presentation. Biotin has been reported to cause a negative bias, interpret results relative to patient's use of biotin. Lab Interpretation Normal (test code = 37460-9) [facility] [id number] 03:26:34 Test Item Value Reference Range Interpretation Comments NT-proBNP (test code = 440 pg/mL <=125 H 3445717926) DAVID (test code = DAVID) Biotin has been reported to cause a negative bias, interpret results relative to patient's use of biotin. Lab Interpretation (test Abnormal code = 25080-3) [facility] (73904)2023-02-19 03:17:30 Test Item Value Reference Range Interpretation Comments NA (test code = 136 mmol/L 135-145 8756944151) K (test code = 3.9 mmol/L 3.5-5.0 4632668445) CL (test code = 104 mmol/L 98-108 4747588548) CO2 TOTAL (test code = 21 mmol/L 23-31 L 4353728027) AGAP (test code = 11 2-16 5032591843) BUN (test code = 17 mg/dL 7-23 4288384291) GLUCOSE (test code = 117 mg/dL 70-110 H 6596256304) CREATININE (test code = 0.92 mg/dL 0.60-1.25 5230549934) TOTAL BILI (test code = 1.4 mg/dL 0.1-1.1 H 8355148911) CALCIUM (test code = 10.1 mg/dL 8.6-10.6 6752728432) T PROTEIN (test code = 8.0 g/dL 6.3-8.2 5983414264) ALBUMIN (test code = 4.7 g/dL 3.5-5.0 2927380207) ALK PHOS (test code = 72 U/L 34-122 1897043864) ALTv (test code = 73 U/L 5-50 H 1742-6) AST(SGOT) (test code = 63 U/L 13-40 H 1814922481) eGFR (test code = 81.8 mL/min/1.73m2 1357213903) DAVID (test code = DAVID) Association of Glomerular Filtration Rate (GFR) and Staging of Kidney Disease* + --+ --+ ------+| GFR (mL/min/1.73 m2) ?| With Kidney Damage ?| ?Without Kidney Damage+ --------+ --------+ +| ?>90 ?| ?Stage one ?| ? Normal ?+ ---+ ---+ -------+| ?60-89 ?| ?Stage two ?| ? Decreased GFR ? + --+ --+ ------+| ?30-59 ?| ?Stage three ?| ? Stage three ? + --+ --+ ------+| ?15-29 ?| ?Stage four ? | ? Stage four ?+ ---+ ---+ -------+| ?<15 (or dialysis) ? ?| ?Stage five ? | ? Stage five ?+ ---+ ---+ -------+ *Each stage assumes the associated GFR level has been in effect for at least three months. ?Stages 1 to 5, with or without kidney disease, indicate chronic kidney disease. Notes: Determination of stages one and two (with eGFR >59mL/min/1.73 m2) requires estimation of kidney damage for at least three months as defined by structural or functional abnormalities of the kidney, manifested by either:Pathological abnormalities or Markers of kidney damage (including abnormalities in the composition of the blood or urine or abnormalities in imaging tests). Lab Interpretation Abnormal (test code = 84287-2) [facility] [id number] 03:17:30 Test Item Value Reference Range Interpretation Comments LIPASE (test code = 3823248660) 112 U/L 0-220 Lab Interpretation (test code = Normal 82916-6) [facility]"
[2023-03-01] MEDS ORDERED: METOCLOPRAMIDE 10 MG/2mL INJ ONE (22:14)
[2023-03-01] MEDS ORDERED: DIPHENHYDRAMINE 50 MG/ML VIAL ONE (22:14)
[2023-03-01] MEDS ORDERED: CYCLOBENZAPRINE 10 MG TAB ONE (22:14)
[2023-03-01] MEDS ORDERED: NA CHLORIDE 0.9% 1,000 ML ONE (22:15)
[2023-03-01] MEDS ORDERED: MORPHINE 4 MG/ML SYR ONE (22:15)
[2023-03-01] MEDS ORDERED: KETOROLAC 30 MG/ML INJ ONE (22:15)
--- NOTE | 2023-03-01 22:48 | ER ---
Nurse's Notes [facility] Name: Lanre Clifton Jr Age: 67 yrs Sex: Male : 1955 Arrival Date: 03/01/2023 Time: 21:22 Bed 16 Private MD: Joe Guaman T Diagnosis: Low back pain Presentation: 03/01 21:30 Chief complaint: Patient states: left lower back pain since this morning, rad to left rv leg, with headache. 10/10 pain scale. Coronavirus screen: Vaccine status: Patient reports receiving the 2nd dose of the covid vaccine. Date 2020. Ebola Screen: Patient negative for fever greater than or equal to 101.5 degrees Fahrenheit, and additional compatible Ebola Virus Disease symptoms Patient denies exposure to infectious person. Patient denies travel to an Ebola-affected area in the 21 days before illness onset. Initial Sepsis Screen: Does the patient meet any 2 criteria? No. Patient's initial sepsis screen is negative. Does the patient have a suspected source of infection? No. Patient's initial sepsis screen is negative. Risk Assessment: Do you want to hurt yourself or someone else? Patient reports no desire to harm self or others. Onset of symptoms was March 01, 2023. 21:30 Method Of Arrival: Ambulatory rv 21:30 Acuity: INGRID 3 rv Triage Assessment: 21:32 General: Appears uncomfortable, Behavior is calm, cooperative. Pain: Complains of pain rv in left low back, head Pain currently is 10 out of 10 on a pain scale. Neuro: Level of Consciousness is awake, alert, obeys commands, Oriented to person, place, time, situation, Reports headache that is the "worst ever". Cardiovascular: Capillary refill < 3 seconds. Respiratory: Airway is patent Respiratory effort is even, unlabored. GI: No signs and/or symptoms were reported involving the gastrointestinal system. : No signs and/or symptoms were reported regarding the genitourinary system. Musculoskeletal: Circulation, motion, and sensation intact. Range of motion: intact in all extremities. Historical: - Home Meds: 21:32 cyclobenzaprine 10 mg Oral tablet once daily at bedtime [Active]; pantoprazole 40 mg rv Oral tablet, delayed release (enteric coated) every morning [Active]; quetiapine 400 mg Oral Tablet, Extended Release 24 hr every day at bedtime [Active]; - PMHx: 21:32 chronic back pain; Hypercholesterolemia; Hypertensive disorder; rv - Immunization history:: Adult Immunizations up to date. - Social history:: Smoking status: Patient denies any tobacco usage or history of. - Family history:: not pertinent. Screenin:33 [facility] ED Fall Risk Assessment (Adult) History of falling in the last 3 months, rv including since admission No falls in past 3 months (0 pts) Confusion or Disorientation No (0 pts) Intoxicated or Sedated No (0 pts) Impaired Gait No (0 pts) Mobility Assist Device Used No (0 pt) Altered Elimination No (0 pt) Score/Fall Risk Level 0 - 2 = Low Risk. Abuse screen: Denies threats or abuse. Denies injuries from another. Nutritional screening: No deficits noted. Tuberculosis screening: No symptoms or risk factors identified. Vital Signs: 21:30 BP 164 / 79; Pulse 106; Resp 18; Temp 99.1; Pulse Ox 100% ; Weight 94.35 kg; Height 5 rv ft. 11 in. ; Pain 10/10; 22:59 BP 150 / 78; Pulse 78; Resp 16; Temp 98; Pulse Ox 99% on R/A; rv 21:30 Body Mass Index 29.01 (94.35 kg, 180.34 cm) rv 21:30 Pain Scale: Adult rv [place] Coma Score: 22:59 Eye Response: spontaneous(4). Motor Response: obeys commands(6). Verbal Response: rv oriented(5). Total: 15. ED Course: 21:24 Patient arrived in ED. es 21:24 Joe Guaman MD is Private Physician. es 21:26 Ramses Rangel RN is Primary Nurse. rv 21:28 Rayshawn Montemayor MD is Attending Physician. rt 21:31 Triage completed. rv 21:33 Arm band placed on right wrist. rv 21:34 Patient has correct armband on for positive identification. Placed in gown. Bed in low rv position. Call light in reach. Side rails up X 1. Adult w/ patient. Client placed on continuous cardiac and pulse oximetry monitoring. NIBP monitoring applied. 21:34 No provider procedures requiring assistance completed. rv 22:00 Inserted saline lock: 20 gauge in left antecubital area, using aseptic technique. rv 22:46 Joe Guaman MD is Referral Physician. rt 22:59 IV discontinued, intact, bleeding controlled, No redness/swelling at site. Pressure rv dressing applied. Administered Medications: 22:15 Drug: Ketorolac IVP 15 mg Route: IVP; Site: left antecubital; rv 22:58 Follow up: Response: No adverse reaction; Marked relief of symptoms rv 22:15 Drug: NS 0.9% IV 1000 ml Route: IV; Rate: 1 bolus; Site: left antecubital; rv 22:58 Follow up: IV Status: Completed infusion; IV Intake: 1000ml rv 22:15 Drug: Cyclobenzaprine PO 10 mg Route: PO; rv 22:58 Follow up: Response: No adverse reaction; Marked relief of symptoms rv 22:16 Drug: metoCLOPramide IVP 10 mg Route: IVP; Site: left antecubital; rv 22:58 Follow up: Response: No adverse reaction; Marked relief of symptoms rv 22:16 Drug: diphenhydrAMINE IVP 25 mg Route: IVP; Site: left antecubital; rv 22:58 Follow up: Response: No adverse reaction; Marked relief of symptoms rv 22:58 Not Given (not appropriate at this timea): morphine IVP or IV 4 mg IVP once over 4 mins rv Medication: 21:34 VIS not applicable for this client. rv Intake: 22:58 IV: 1000ml; Total: 1000ml. rv Outcome: 22:47 Discharge ordered by . rt 22:59 Discharged to home ambulatory, with family. rv 22:59 Condition: improved 22:59 Discharge instructions given to patient, Instructed on discharge instructions, follow up and referral plans. medication usage, Demonstrated understanding of instructions, follow-up care, medications, Prescriptions given X 1. 23:00 Patient left the ED. rv Signatures: Mckenzie Rascon Ronaldo, RN RN rv Rayshawn Montemayor MD MD rt
--- NOTE | 2023-03-01 22:48 | EDPHYS ---
Physician Documentation [facility] Name: Lanre Clifton Jr Age: 67 yrs Sex: Male : 1955 Arrival Date: 03/01/2023 Time: 21:22 Bed 16 Private MD: Joe Guaman T ED Physician Rayshawn Montemayor HPI: 03/02 00:24 This 67 yrs old Male presents to ER via Ambulatory with complaints of Back Pain, High rt Blood Pressure. 00:24 Headache which isPatient with history of chronic back pain due to accident with rt reported bulging disc at L4 and L5 presents to the ED with a worsening of his back pain today. Has been out of the medications that he was prescribed previously. Of note, patient does have an appointment with pain management tomorrow and believes that he get in with his primary care provider's office tomorrow. He states that the pain is worsened but is still in the same character as his prior pain. It is not uncommon for him when he gets worsening of his pain. Denies fever, chills, other acute complaints. Symptoms are moderate severity, aching nature, radiates on the left leg, no other aggravating or alleviating factors.. Historical: - Home Meds: 03/01 21:32 cyclobenzaprine 10 mg Oral tablet once daily at bedtime [Active]; pantoprazole 40 mg rv Oral tablet, delayed release (enteric coated) every morning [Active]; quetiapine 400 mg Oral Tablet, Extended Release 24 hr every day at bedtime [Active]; - PMHx: 21:32 chronic back pain; Hypercholesterolemia; Hypertensive disorder; rv - Immunization history:: Adult Immunizations up to date. - Social history:: Smoking status: Patient denies any tobacco usage or history of. - Family history:: not pertinent. ROS: 03/02 00:30 Constitutional: Negative for fever, chills, and weight loss, Cardiovascular: Negative rt for chest pain, palpitations, and edema, Respiratory: Negative for shortness of breath, cough, wheezing, and pleuritic chest pain, Abdomen/GI: Negative for abdominal pain, nausea, vomiting, diarrhea, and constipation, Skin: Negative for injury, rash, and discoloration, Psych: Negative for depression, anxiety, suicide ideation, homicidal ideation, and hallucinations. Back: Positive for pain at rest, radiated pain. Neuro: Positive for headache, Negative for altered mental status, tingling, weakness. Exam: 00:30 Constitutional: This is a well developed, well nourished patient who is awake, alert, rt and in no acute distress. Head/Face: Normocephalic, atraumatic. Chest/axilla: Normal chest wall appearance and motion. Nontender with no deformity. No lesions are appreciated. Cardiovascular: Regular rate and rhythm with a normal S1 and S2. No gallops, murmurs, or rubs. Normal PMI, no JVD. No pulse deficits. Respiratory: Lungs have equal breath sounds bilaterally, clear to auscultation and percussion. No rales, rhonchi or wheezes noted. No increased work of breathing, no retractions or nasal flaring. Abdomen/GI: Soft, non-tender, with normal bowel sounds. No distension or tympany. No guarding or rebound. No evidence of tenderness throughout. Skin: Warm, dry with normal turgor. Normal color with no rashes, no lesions, and no evidence of cellulitis. MS/ Extremity: Pulses equal, no cyanosis. Neurovascular intact. Full, normal range of motion. Neuro: Awake and alert, GCS 15, oriented to person, place, time, and situation. Cranial nerves II-XII grossly intact. Motor strength 5/5 in all extremities. Sensory grossly intact. Cerebellar exam normal. Normal gait. 00:30 Back: Tenderness to the left lumbar paraspinal region, no midline tenderness, no step-offs. Vital Signs: 03/01 21:30 BP 164 / 79; Pulse 106; Resp 18; Temp 99.1; Pulse Ox 100% ; Weight 94.35 kg; Height 5 rv ft. 11 in. ; Pain 10/10; 22:59 BP 150 / 78; Pulse 78; Resp 16; Temp 98; Pulse Ox 99% on R/A; rv 21:30 Body Mass Index 29.01 (94.35 kg, 180.34 cm) rv 21:30 Pain Scale: Adult rv [place] Coma Score: 22:59 Eye Response: spontaneous(4). Motor Response: obeys commands(6). Verbal Response: rv oriented(5). Total: 15. MDM: 21:42 Patient medically screened. rt 03/02 00:30 Differential diagnosis: Cauda equina syndrome, spinal epidural abscess, chronic rt musculoskeletal back pain, aortic pathology. Data reviewed: vital signs, nurses notes, old medical records, Patient had extensive work-ups including cardiac, CT angiograms of the aorta. This pain is similar to prior pains. Do not believe that he requires further work-up for aortic dissection, kidney stone at this time. CT scans, labs are not indicated. Patient to follow-up tomorrow with his pain management doctor for more definitive care. External Records Reviewed:. Counseling: I had a detailed discussion with the patient and/or guardian regarding: the historical points, exam findings, and any diagnostic results supporting the discharge/admit diagnosis, the need for outpatient follow up. Response to treatment: the patient's symptoms have markedly improved after treatment. Administered Medications: 03/01 22:15 Drug: Ketorolac IVP 15 mg Route: IVP; Site: left antecubital; rv 22:58 Follow up: Response: No adverse reaction; Marked relief of symptoms rv 22:15 Drug: NS 0.9% IV 1000 ml Route: IV; Rate: 1 bolus; Site: left antecubital; rv 22:58 Follow up: IV Status: Completed infusion; IV Intake: 1000ml rv 22:15 Drug: Cyclobenzaprine PO 10 mg Route: PO; rv 22:58 Follow up: Response: No adverse reaction; Marked relief of symptoms rv 22:16 Drug: metoCLOPramide IVP 10 mg Route: IVP; Site: left antecubital; rv 22:58 Follow up: Response: No adverse reaction; Marked relief of symptoms rv 22:16 Drug: diphenhydrAMINE IVP 25 mg Route: IVP; Site: left antecubital; rv 22:58 Follow up: Response: No adverse reaction; Marked relief of symptoms rv 22:58 Not Given (not appropriate at this timea): morphine IVP or IV 4 mg IVP once over 4 mins rv Disposition Summary: 03/01/23 22:47 Discharge Ordered Location: Home rt Problem: an acute exacerbation rt Symptoms: have improved rt Condition: Stable rt Diagnosis - Low back pain rt Followup: rt - With: Joe Guaman MD - When: 1 - 2 days - Reason: Discharge Instructions: - Discharge Summary Sheet rt - Chronic Back Pain rt Forms: - Medication Reconciliation Form rt - Thank You Letter rt - Antibiotic Education rt - Prescription Opioid Use rt Prescriptions: - Cyclobenzaprine 10 mg Oral Tablet - take 1 tablet by ORAL route every 8 hours As needed; 18 tablet; Refills: 0, rt Product Selection Permitted Signatures: Ramses Rangel, RN RN rv Rayshawn Montemayor MD MD rt
[2023-03-02 00:25] VITALS: BP 150/78; TEMP 98; O2SAT 99
== END 2023-03-01 23:00 | disposition home or self-care (01) ==
LOC: ER 21:22
DX: M54.50 Low back pain, unspecified (principal); I10 Essential (primary) hypertension
CPT/HCPCS: J2765; J1200; J7030; 96361; 96374; 96375; 99284

== ENCOUNTER 2023-05-17 04:27 | Inpatient (IN) | payer OTHER ==
--- OUTSIDE RECORDS SUMMARY | 2023-05-17 04:31 | XMS REPORT | Continuity of Care Document ---
:1955 Author Organization [facility] t Address [address] [place] [address] Care Team Providers Name Role Phone SEGUN CUADRA Primary Care Physician Unavailable Ben Plata MD Attending Clinician BEN PLATA Attending Clinician Unavailable BEN PLATA Admitting Clinician Unavailable Payers Payer Name Policy Type Policy Number Effective Date Expiration Date S [facility] 2022 (MEDICARE 00:00:00 REPLACEMENT HMO) Problems This patient has no known problems. Allergies, Adverse Reactions, Alerts Allergy Allergy Status Severity Reaction(s) Onset Inactive Treating Comm ents Source Name Type Date Date Clinician NO KNOWN Drug Active Univers ALLERGIE Class ity of [facility] Medical [place] Social History Social Habit Start Date Stop Date Quantity Comments Source Sex Assigned At [birth year] [facility] 00:00:00 00:00:00 Medical Branch Smoking Status Start Date Stop Date Source Tobacco smoking consumption [facility] Branch Medications Ordered Filled Start Stop Current Ordering Indication Dosage Frequency Signature Comments Components Source Medication Medication Date Date Medication? Clinician (SIG) Name Name methylpredn 2022- No 125mg 125 mg, U nivers isolone sod 02-19 06-04 Slow IV ity of succ 04:45: 05:03 [place], [place] (SOLU-MEDRO 00 :00 ONCE, 1 Medic al L) dose, On Branch injection 02/18/23 125 mg at 2345, IVANA FENTanyl PF 2023-0 2023- No 100ug 100 mcg, Univers (SUBLIMAZE 02-19 [...] On 02/18/23 at 2200, IVANA cyclobenzap Yes [id number] 10mg Take 1 Univers rine 10 mg - tablet by ity of tablet 00:00: mouth 2 [place] 00 (two) Medical times Branch daily as needed for Muscle Spasms for up to 10 doses. ibuprofen 0 Yes [id number] 400mg Take 2 Univers (MOTRIN IB) 6-03 tablets by it y of 200 mg 00:00: mouth [place] tablet 00 every 6 Medical (six) Branch hours as needed for Pain (scale 1-3) for up to 30 doses. predniSONE 0 2022- Yes [id number] 20mg Take 1 Univers 20 mg -11 21-06 tablet by ity of tablet 00:00: 04:59 mouth in [place] 00 :00 the Medical morning Branch and 1 tablet in the evening. Do all this for 2 days. Vital Signs Vital Name Observation Time Observation Value Comments Source Systolic blood 2023-02-19 04:33:00 177 mm[Hg] Univer sity of pressure [facility] Diastolic blood 2023-02-19 04:33:00 92 mm[Hg] Unive rsity of pressure [facility] Heart rate 2023-02-19 04:33:00 79 /min [facility] Respiratory rate 2023-02-19 04:33:00 18 /min [facility] Oxygen saturation in 2023-02-19 04:33:00 99 /min [facility] Arterial blood by [facility] Pulse oximetry [place] Body temperature 2023-02-19 02:31:00 36.5 [place] [facility] Body height 2023-02-19 02:31:00 180.3 cm [facility] Body weight 2023-02-19 02:31:00 94.348 kg [facility] BMI 2023-02-19 02:31:00 29.01 kg/m2 [facility] Procedures Procedure Date / Time Performed Performing Clinician [facility] e ASSIGNMENT OF BENEFITS 2023-02-19 05:17:57 Doctor Unassigned, No [facility] Name [facility] Er EKG-12 LEAD 2023-02-19 04:58:01 Ben Plata [facility] URINALYSIS 2023-02-19 04:24:00 Ben Plata [facility] COVID-19 (ID NOW RAPID 2023-02-19 03:18:00 Ben Plata [facility] TESTING) [facility] Er CT ABDOMEN PELVIS WO 2023-02-19 03:14:17 Bne Plata Un [facility] CONTRAST [facility] Er XR CHEST 2 VW 2023-02-19 03:14:02 Ben Plata [facility] AC ABG + LACTIC ACID 2023-02-19 03:13:00 [facility] 2023-02-19 02:50:00 Ben Plata [facility] TROPONIN I 2023-02-19 02:50:00 Ben Plata [facility] COMP. METABOLIC PANEL 2023-02-19 02:50:00 Ben Plata [facility] ([id number]) [facility] Er CBC WITH DIFF 2023-02-19 02:50:00 Ben Plata [facility] N-TERMINAL PRO-BNP 2023-02-19 02:50:00 Ben Plata [facility] CONSENT/REFUSAL FOR 2023-02-19 02:21:16 Doctor Unassigned, No Un [facility] DIAGNOSIS AND Name Medical Branch TREATMENT Encounters Start End Encounter Admission Attending Care Care Encounter Source Date/Time Date/Time Type Type Clinicians Facility Department ID 2023-02-18 2023-02-19 Emergency [facility] [id number] Univers 21:32:00 00:21:00 Ben LOPEZ [id number] i ty of [facility] [place] [id number] [facility] [id number] [facility] 084 Branch 2023-02-18 2023-02-19 Emergency X [facility] ERT [id number] Univers 21:32:00 00:21:00 [facility] 2022-07-27 2022-07-27 Outpatient DMG DM [id number] [facility] 00:00:00 00:00:00 [id number] Medica l Group Results Test Description Test [...] See_Comment [Au tomated message] The system which Poshly nerated this result transmit rubin reference range: [...] g/dL 31.2-35.0 H RDW-SD (test code = 27649-2) 39.8 fL 38.5-51.6 RDW-CV (test code = 788-0) 12.1 % 12.1-15.4 PLT (test code = 777-3) 298 See_Comment [Au tomated message] The system which ge nerated this result transmit rubin reference range: 150 - 32 8 10*3/?L. The reference range was not used to interpret th is result as normal/abnormal . MPV (test code = 66739-8) 9.5 fL 9.8-13.0 L NRBC/100 WBC (test code = 0.0 See_Comment [ Automated message] The 7522614600) system which ge nerated this result transmit rubin reference range: 0.0 - 10 .0 /100 WBCs. The reference r juan was not used to interpr et this result as normal/abnor mal. NRBC x10^3 (test code = See_Comment [Au tomated message] The 5538502013) system which ge nerated this result transmit rubin reference range: 10*3/?L. The reference range was not u sed to interpret this result as normal/abnormal . GRAN MAT (NEUT) % (test code 54.6 % = 770-8) IMM GRAN % (test code = 1.30 % 3407875048) LYMPH % (test code = 736-9) 33.9 % MONO % (test code = 5905-5) 9.0 % EOS % (test code = 713-8) 0.5 % BASO % (test code = 706-2) 0.7 % GRAN MAT x10^3(ANC) (test 7.06 10*3/uL 1.99-6.95 H code = 1277620084) IMM GRAN x10^3 (test code = 0.17 10*3/uL 0.00-0.06 H 7945709405) LYMPH x10^3 (test code = 4.39 10*3/uL 1.09-3.23 H 731-0) MONO x10^3 (test code = 1.17 10*3/uL 0.36-1.02 H 742-7) EOS x10^3 (test code = 0.07 10*3/uL 0.06-0.53 711-2) BASO x10^3 (test code = 0.09 10*3/uL 0.01-0.09 704-7) LG GRAN LYMPHS (test code = Rare Rare 9481930101) REACT LYMPHS (test code = Rare 9220890194) Lab Interpretation (test Abnormal code = 07888-9) [id number] 03:29:35 Test Item Value Reference Range Interpretation Comments TROPONIN I (test code = 0.008 ng/mL <=0.034 4585201145) DAVID (test code = DAVID) Reference (Normal) [...] biotin. Lab Interpretation Normal (test code = 79047-5) [id number] 03:26:34 Test Item Value Reference Range Interpretation Comments NT-proBNP (test code = 440 pg/mL <=125 H 5211789087) DAVID (test code = DAVID) Biotin has been reported to cause a negative bias, interpret results relative to patient's use of biotin. Lab Interpretation (test Abnormal code = 43803-8) [facility] (26178)2023-02-19 03:17:30 Test Item Value Reference Range Interpretation Comments NA (test code = 136 mmol/L 135-145 0505654906) K (test code = 3.9 mmol/L 3.5-5.0 7354329398) CL (test code = 104 mmol/L 98-108 9553102354) CO2 TOTAL (test code = 21 mmol/L 23-31 L 4243179814) AGAP (test code = 11 2-16 2973170812) BUN (test code = 17 mg/dL 7-23 5373873050) GLUCOSE (test code = 117 mg/dL 70-110 H 7448381197) CREATININE (test code = 0.92 mg/dL 0.60-1.25 4306180472) TOTAL BILI (test code = 1.4 mg/dL 0.1-1.1 H 0975099106) CALCIUM (test code = 10.1 mg/dL 8.6-10.6 5749163498) T PROTEIN (test code = 8.0 g/dL 6.3-8.2 0213466649) ALBUMIN (test code = 4.7 g/dL 3.5-5.0 1831152030) ALK PHOS (test code = 72 U/L 34-122 9457016570) ALTv (test code = 73 U/L 5-50 H 1742-6) AST(SGOT) (test code = 63 U/L 13-40 H 8170680497) eGFR (test code = 81.8 mL/min/1.73m2 2164038064) DAVID (test code = DAVID) Association of [...] tests). Lab Interpretation Abnormal (test code = 91855-4) [id number] 03:17:30 Test Item Value Reference Range Interpretation Comments LIPASE (test code = 1723841530) 112 U/L 0-220 Lab Interpretation (test code = Normal 17834-6) [facility]"
[2023-05-17] MEDS ORDERED: ONDANSETRON 4 MG/2 ML VIAL ONE (04:51)
[2023-05-17] MEDS ORDERED: NA CHLORIDE 0.9% 1,000 ML ONE ×2 (04:51→07:03)
[2023-05-17] MEDS ORDERED: FENTANYL CITR 100 MCG/2 ML ONE (04:51)
[2023-05-17 05:00] LABS: Absolute Lymphocytes (CBC) 3.2 K/uL (0.7-4.9); Lymphocytes % 25.5 % (15.3-44.8); Platelets 193 thou/uL (152-406); RBC Red Blood Cell Count 4.11 M/uL (4.33-5.43)
[2023-05-17 05:02] LABS: Protime INR 1.01
[2023-05-17 05:17] LABS: Albumin 3.5 g/dL (3.4-5.0); Bilirubin Direct 0.3 mg/dL (0-0.2); Bilirubin Indirect, Calculated 0.5 mg/dL (0.2-0.8); Bilirubin Total 0.8 mg/dL (0.2-1.0); Magnesium 1.9 mg/dL (1.6-2.4); Potassium 3.4 mEq/L (3.5-5.1); Protein, Total 6.5 g/dL (6.4-8.2); Troponin High Sensitivity 10.4 pg/mL (<58.9)
--- NOTE | 2023-05-17 06:49 | EDPHYS ---
Physician Documentation [facility] Name: Lanre Clifton Jr Age: 68 yrs Sex: Male : 1955 Arrival Date: 05/17/2023 Time: 04:27 Bed 3 Private MD: ED Physician Scot Daley HPI: 05/17 04:36 This 68 yrs old Male presents to ER via Unassigned with complaints of fall, sp4 neck pain, syncope . 04:36 This 68-year-old male who presents with EMS, after reported syncope at home passing out sp4 fall and striking back of the head and neck, on the coffee table. Patient complains of generalized weakness, syncope, fall at home, head and neck pain posteriorly after fall at home. Patient denied any prior incident of syncope. Patient's primary MD is Dr. Guaman. GCS 13 on arrival. 06:37 Past medical history review and admission report reveals admission on 02/13/2023 for sp4 hypertension, hyperlipidemia, chronic back pain, acute chest pain, syncopal episode. Patient was observed in the hospital. No trouble in the hospital. Discharge 02/15/2023. Patient's medications include amlodipine, metoprolol, atorvastatin, cyclobenzaprine, diazepam, duloxetine, pantoprazole, quetiapine, methocarbamol, aspirin, clopidogrel, hydrocodone, prednisone . . Historical: - Allergies: 04:39 No Known Allergies; jw7 - Home Meds: 04:39 cyclobenzaprine 10 mg Oral tablet once daily at bedtime [Active]; pantoprazole 40 mg jw7 Oral tablet, delayed release (enteric coated) every morning [Active]; quetiapine 400 mg Oral Tablet, Extended Release 24 hr every day at bedtime [Active]; - PMHx: 04:39 chronic back pain; Hypercholesterolemia; Hypertensive disorder; jw7 - PSHx: 04:39 None; jw7 - Immunization history:: Adult Immunizations up to date. - Social history:: Smoking status: Patient denies any tobacco usage or history of. - Family history:: not pertinent. ROS: 04:36 Constitutional: Negative for fever, chills, and weight loss, ENT: Negative for injury, sp4 pain, and discharge, positive posterior scalp pain positive posterior neck pain, from below and fully recent Neck: Positive for posterior neck injury and posterior neck pain. 04:36 All other systems are negative. Exam: 04:36 Constitutional: This is a well developed, well nourished patient who is awake, alert, sp4 patient is pale appearing, ill-appearing male, who is nontoxic-appearing though, tachycardic. Head/Face: Normocephalic, atraumatic. Eyes: Pupils equal round and reactive to light, extra-ocular motions intact. Lids and lashes normal. Conjunctiva and sclera are not injected. Cornea within normal limits. Periorbital areas with no swelling, redness, or edema. ENT: Nares patent. No nasal discharge, no septal abnormalities noted. Tympanic membranes are normal and external auditory canals are clear. Oropharynx with no redness, swelling, or masses, exudates, or evidence of obstruction, uvula midline. Mucous membranes moist. Neck: Trachea midline, no thyromegaly or masses palpated, and no cervical lymphadenopathy. Supple, without nuchal rigidity, positive posterior neck tenderness, neck range of motion was not tested, c-collar was applied after arrival to the ER Chest/axilla: Normal chest wall appearance and motion. Nontender with no deformity. No lesions are appreciated. Cardiovascular: Regular rate and rhythm with a normal S1 and S2. No gallops, murmurs, or rubs. Normal PMI, no JVD. No pulse deficits. Respiratory: Lungs have equal breath sounds bilaterally, clear to auscultation and percussion. No rales, rhonchi or wheezes noted. No increased work of breathing, no retractions or nasal flaring. Abdomen/GI: Soft, non-tender, with normal bowel sounds. No distension or tympany. No guarding or rebound. No evidence of tenderness throughout. Back: No spinal tenderness. No costovertebral tenderness. Male : Normal genitalia with no discharge or lesions. Skin: Warm, dry with normal turgor. Normal color with no rashes, no lesions, and no evidence of cellulitis. MS/ Extremity: Pulses equal, no cyanosis. Neurovascular intact. Full, normal range of motion. Neuro: Awake and alert, GCS 15, oriented to person, place, time, and situation. Cranial nerves II-XII grossly intact. Motor strength 5/5 in all extremities. Sensory grossly intact. Psych: Awake, alert, with orientation to person, place and time. Behavior, mood, and affect are within normal limits 04:36 ECG was reviewed by the Attending Physician. sp4 06:33 EKG 0 432, there is normal sinus rhythm at a rate of 92, no ST elevation or depression, sp4 no ectopy. Vital Signs: 04:33 BP 95 / 62; Pulse 97; Resp 18 S; Temp 98.2(TE); Pulse Ox 99% on R/A; Weight 95.25 kg; jw7 Height 5 ft. 11 in. ; Pain 9/10; 04:46 BP 107 / 61; Pulse 90; Resp 18 S; Pulse Ox 100% on R/A; jw7 05:10 BP 101 / 70; Pulse 83; Resp 18 S; Pulse Ox 97% on R/A; jw7 05:30 BP 126 / 71; Pulse 74; Resp 18 S; Pulse Ox 98% on R/A; jw7 06:00 BP 120 / 69; Pulse 69; Resp 17 S; Pulse Ox 98% on R/A; jw7 06:57 BP 127 / 75; Pulse 70; Resp 18 S; Pulse Ox 99% on R/A; as6 08:00 BP 124 / 69; Pulse 61; Resp 17; Temp 97.8; Pulse Ox 99% on R/A; rs5 09:01 BP 126 / 74; Pulse 60; Resp 17; Pulse Ox 98% on R/A; rs5 09:35 BP 121 / 68; Pulse 66; Resp 17; Pulse Ox 98% on R/A; rs5 10:30 BP 127 / 67; Pulse 62; Resp 17; Pulse Ox 99% on R/A; rs5 04:33 Body Mass Index 29.29 (95.25 kg, 180.34 cm) [facility] 04:33 Pain Scale: Adult jw7 MDM: 05:04 Patient medically screened. sp4 06:31 ED course: Chest X ray - FINDINGS: The lungs are well expanded and are clear. There is sp4 no evidence of a pneumothorax. The cardiac silhouette is normal in size and configuration. The mediastinal contours are normal. No acute osseous abnormality is identified. No acute soft tissue abnormalities are seen. Lines and tubes: None. Free air: None IMPRESSION: No evidence of acute intrathoracic disease.. ED course: X ray pelvis - FINDINGS: There is no evidence of fracture or dislocation. There are mild degenerative changes of the visualized lower lumbar spine and pelvis. No focal lytic or sclerotic bone lesions are seen. Bone mineralization is normal. No acute soft tissue abnormalities are identified. There are remote postsurgical changes consistent with hernia repair in the right inguinal region. Calcified phleboliths are noted in the left hemipelvis IMPRESSION: No evidence of acute osseous injury. There are mild degenerative changes of the visualized lower lumbar spine and pelvis. ED course: IMPRESSION: 1. No intracranial hemorrhage. No acute skull fracture. 2. No acute cervical spine fracture. 3. Multilevel degenerative facet arthropathy. . 06:48 Differential Diagnosis altered mental status, sepsis, flu. Data reviewed: vital signs, sp4 nurses notes, EMS record, old medical records, lab test result(s), EKG, radiologic studies, CT scan, plain films. Consideration of Admission/Observation Patient was admitted/placed on observation. Escalation of care including admission/observation considered. Management of patient was discussed with the following: Hospitalist: Cesar Orr MD . 06:49 ED course: Labs revealed acute elevation in creatinine 2.2 also elevated blood sugar sp4 201. This is new since prior baseline. Patient warrants admission for observation, IV hydration, possibly echocardiogram and carotid Doppler. Patient was accepted by the admitting enterprise infrastructure architect. 05/17 04:34 Order name: Basic Metabolic Panel; Complete Time: 06:07 sp4 05/17 04:34 Order name: CBC with Diff; Complete Time: 06: sp4 05/17 04:34 Order name: LFT's; Complete Time: 06:07 sp4 05/17 04:34 Order name: Magnesium; Complete Time: 06:07 sp4 05/17 04:34 Order name: NT PRO-BNP; Complete Time: 06:07 sp4 05/17 04:34 Order name: PT-INR; Complete Time: 06:07 sp4 05/17 04:34 Order name: Troponin HS; Complete Time: 06:07 sp4 05/17 06:46 Order name: Alcohol Level; Complete Time: 20:04 sp4 05/17 06:46 Order name: Urine Drug Screen; Complete Time: 20:04 sp4 05/17 08:44 Order name: Basic Metabolic Panel; Complete Time: 20:04 EDMS 05/17 10:45 Order name: Hemoglobin A1c; Complete Time: 20:04 EDMS 05/17 10:54 Order name: Phosphorus; Complete Time: 20:04 EDMS 05/17 10:54 Order name: NT PRO-BNP; Complete Time: 20:04 EDMS 05/17 10:54 Order name: T4 Free; Complete Time: 20:04 EDMS 05/17 10:54 Order name: Magnesium; Complete Time: 20:04 EDMS 05/17 10:54 Order name: Thyroid Stimulating Hormone; Complete Time: 20:04 EDMS 05/17 04:34 Order name: XRAY Chest (1 view); Complete Time: 20:04 sp4 05/17 04:34 Order name: Pelvis XRAY; Complete Time: 20:04 sp4 05/17 04:34 Order name: CT Head C Spine; Complete Time: 20:04 sp4 05/17 04:34 Order name: EKG; Complete Time: 04:38 sp4 05/17 07:48 Order name: Diet Heart Healthy; Complete Time: 07:48 aa5 05/17 04:34 Order name: Cardiac monitoring; Complete Time: 04:35 sp4 05/17 04:34 Order name: EKG - Nurse/Tech; Complete Time: 04:35 sp4 05/17 04:34 Order name: IV Saline Lock; Complete Time: 04:35 sp4 05/17 04:34 Order name: Labs collected and sent; Complete Time: 04:35 sp4 05/17 04:34 Order name: O2 Per Protocol; Complete Time: 04:35 sp4 05/17 04:34 Order name: O2 Sat Monitoring; Complete Time: 04:35 sp4 EC:36 Rate is 92 beats/min. Rhythm is regular, Normal Sinus Rhythm. QRS [place] is Normal. [place] sp4 interval is normal. QRS interval is normal. QT interval is normal. T waves are Normal. No ST changes noted. Clinical impression: Normal ECG. Interpreted by me. 06:33 Rate is 95 beats/min. Rhythm is regular, Normal Sinus Rhythm. QRS [place] is Normal. [place] sp4 interval is normal. QRS interval is normal. QT interval is normal. T waves are Normal. No ST changes noted. Clinical impression: No evidence of ischemia. Interpreted by me. Administered Medications: 04:45 Drug: fentaNYL (PF) IVP 50 mcg Route: IVP; Site: left antecubital; rv 06:58 Follow up: Response: No adverse reaction jw7 04:45 Drug: Ondansetron IVP 4 mg Route: IVP; Site: left antecubital; rv 06:58 Follow up: Response: No adverse reaction jw7 04:45 Drug: NS 0.9% IV 1000 ml Route: IV; Rate: 1 bolus; Site: left antecubital; rv 06:58 Follow up: Response: No adverse reaction; IV Status: Completed infusion; IV Intake: jw7 1000ml 06:57 Drug: [place] PO 10 mg-325 mg 1 tabs Route: PO; jw7 06:57 Drug: Cyclobenzaprine PO 10 mg Route: PO; jw7 06:57 Drug: Promethazine PO 25 mg Route: PO; jw7 06:58 Drug: NS 0.9% IV 1000 ml Route: IV; Rate: 125 ml/hr; Site: right antecubital; jw7 Disposition Summary: 05/17/23 06:48 Hospitalization Ordered Hospitalization Status: Observation sp4 Provider: Cesar Orr sp4 Location: Telemetry/MedSurg (observation) sp4 Condition: Stable sp4 Problem: new sp4 Symptoms: have improved sp4 Bed/Room Type: Standard sp4 Room Assignment: 223(05/17/23 09:32) bd Diagnosis - Dehydration sp4 - Syncope and collapse, posterior scalp injury, fall at home, acute renal sp4 insufficiency, acute volume contraction, acute hyperglycemia Forms: - Medication Reconciliation Form sp4 - SBAR form sp4 - Leadership Thank You Letter sp4 Signatures: Dispatcher [employer] EDKathy Oliveros Ronaldo, RN RN rv Waits, Jodi, RN RN jw7 Scot Daley MD MD sp4 Corrections: (The following items were deleted from the chart) 09:32 06:48 sp4 bd
--- NOTE | 2023-05-17 06:49 | ER ---
Nurse's Notes [facility] Name: Lanre Clifton Jr Age: 68 yrs Sex: Male : 1955 Arrival Date: 05/17/2023 Time: 04:27 Bed 3 Private MD: Diagnosis: Dehydration;Syncope and collapse, posterior scalp injury, fall at home, acute renal insufficiency, acute volume contraction, acute hyperglycemia Presentation: 05/17 04:33 Chief complaint: Patient states: to have had several syncopal episodes when going from [facility] sitting to standing, with dizziness when standing. EMS states: pt had a syncopal episode, fell and hit the back of his head on a coffee table, pt c/o pain to left side of the body, with worst pain in the neck. Coronavirus screen: At this time, the client does not indicate any symptoms associated with coronavirus-19. Ebola Screen: No symptoms or risks identified at this time. Initial Sepsis Screen: Does the patient meet any 2 criteria? No. Patient's initial sepsis screen is negative. Does the patient have a suspected source of infection? No. Patient's initial sepsis screen is negative. Risk Assessment: Do you want to hurt yourself or someone else? Patient reports no desire to harm self or others. Onset of symptoms was May 17, 2023. 04:33 Method Of Arrival: EMS: [facility] 04:33 Acuity: INGRID 2 jw 04:33 Care prior to arrival: BG 174. jw7 Triage Assessment: 04:39 General: Appears distressed, uncomfortable, Behavior is calm, cooperative, restless. jw Pain: Complains of pain in back of neck and left side of body Pain does not radiate. Pain currently is 9 out of 10 on a pain scale. Quality of pain is described as sharp, shooting, throbbing, Pain began suddenly, Is continuous. EENT: No deficits noted. No signs and/or symptoms were reported regarding the EENT system. Neuro: Agrawal Agitation-Sedation Scale (RASS): 0 - Alert and Calm Level of Consciousness is awake, alert, obeys commands, Oriented to person, place, time, situation, Reports dizziness, when standing a syncopal episode. Cardiovascular: Reports chest pain, lightheadedness, syncope, Capillary refill < 3 seconds Clubbing of nail beds is absent JVD is absent Patient's skin is warm and dry. Respiratory: No deficits noted. Airway is patent Trachea midline Respiratory effort is even, unlabored, Respiratory pattern is regular, symmetrical. GI: No deficits noted. No signs and/or symptoms were reported involving the gastrointestinal system. Abdomen is flat, non-distended. : No deficits noted. No signs and/or symptoms were reported regarding the genitourinary system. Derm: No signs and/or symptoms reported regarding the dermatologic system. Skin is intact, is healthy with good turgor, Skin is dry, Skin is pale, Skin temperature is warm. Musculoskeletal: No deficits noted. No signs and/or symptoms reported regarding the musculoskeletal system. Circulation, motion, and sensation intact. Range of motion: intact in all extremities. Historical: - Allergies: 04:39 No Known Allergies; jw7 - Home Meds: 04:39 cyclobenzaprine 10 mg Oral tablet once daily at bedtime [Active]; pantoprazole 40 mg jw7 Oral tablet, delayed release (enteric coated) every morning [Active]; quetiapine 400 mg Oral Tablet, Extended Release 24 hr every day at bedtime [Active]; - PMHx: 04:39 chronic back pain; Hypercholesterolemia; Hypertensive disorder; jw7 - PSHx: 04:39 None; jw7 - Immunization history:: Adult Immunizations up to date. - Social history:: Smoking status: Patient denies any tobacco usage or history of. - Family history:: not pertinent. Screenin:45 [facility] ED Fall Risk Assessment (Adult) History of falling in the last 3 months, jw7 including since admission Yes- fall prone (multiple falls) (3 pts) Confusion or Disorientation No (0 pts) Intoxicated or Sedated No (0 pts) Impaired Gait Yes (1 pt) Mobility Assist Device Used No (0 pt) Altered Elimination No (0 pt) Score/Fall Risk Level 3 or more points = High Risk Oriented to surroundings, Maintained a safe environment. Abuse screen: Denies threats or abuse. Denies injuries from another. Nutritional screening: No deficits noted. Tuberculosis screening: No symptoms or risk factors identified. Assessment: 04:46 General: see triage assessment. jw7 05:04 General: taken to CT via hospital bed. jw7 05:15 General: returned from CT. jw7 06:10 Reassessment: Patient appears in no apparent distress at this time. No changes from jw7 previously documented assessment. Patient and/or family updated on plan of care and expected duration. Pain level reassessed. Patient is alert, oriented x 3, equal unlabored respirations, skin warm/dry/pink. 06:57 Reassessment: Patient appears in no apparent distress at this time. Patient and/or as6 family updated on plan of care and expected duration. Pain level reassessed. Patient is alert, oriented x 3, equal unlabored respirations, skin warm/dry/pink. 07:24 General: Appears in no apparent distress. comfortable, Behavior is calm, cooperative, rs5 Awaiting admission orders. Pain: Complains of pain in posterior part of head, left side Pain currently is 8 out of 10 on a pain scale. Quality of pain is described as throbbing, Is continuous. Neuro: Level of Consciousness is awake, alert, obeys commands, Oriented to person, place, time, situation. Cardiovascular: Rhythm is regular. Respiratory: Airway is patent Respiratory effort is even, unlabored, Respiratory pattern is regular, symmetrical. GI: Abdomen is round non-distended, Abd is soft and non tender X 4 quads. : No signs and/or symptoms were reported regarding the genitourinary system. EENT: No signs and/or symptoms were reported regarding the EENT system. Derm: Skin is pink, warm \T\ dry. Musculoskeletal: Range of motion: intact in all extremities. 08:30 Reassessment: Patient and/or family updated on plan of care and expected duration. Pain rs5 level reassessed. Patient is alert, oriented x 3, equal unlabored respirations, skin warm/dry/pink. Breakfast tray to bedside. 08:30 Pain:. Pain: Complains of pain in back of head, left side Pain radiates to neck Pain rs5 currently is 8 out of 10 on a pain scale. Quality of pain is described as throbbing, Is continuous. 08:30 General: Appears in no apparent distress. comfortable, Behavior is calm, cooperative. rs5 09:20 Reassessment: Patient and/or family updated on plan of care and expected duration. Pain rs5 level reassessed. 100% of breakfast tray consumed. Hospitalist at bedside. Pain: Complains of pain in back of head, left side Pain radiates to neck Pain currently is 8 out of 10 on a pain scale. Quality of pain is described as throbbing, Is continuous. 09:20 General: Appears in no apparent distress. comfortable, Behavior is calm, cooperative. rs5 09:50 Reassessment: county supervisor (Roger Rubi RN) reports RM 223 is not clean yet. aa5 Awaiting room to be cleaned for pt to be transferred to admitting floor. . 10:42 Reassessment: Report given to nurse JERAD Morel. rs5 Vital Signs: 04:33 BP 95 / 62; Pulse 97; Resp 18 S; Temp 98.2(TE); Pulse Ox 99% on R/A; Weight 95.25 kg; jw7 Height 5 ft. 11 in. ; Pain 9/10; 04:46 BP 107 / 61; Pulse 90; Resp 18 S; Pulse Ox 100% on R/A; jw7 05:10 BP 101 / 70; Pulse 83; Resp 18 S; Pulse Ox 97% on R/A; jw7 05:30 BP 126 / 71; Pulse 74; Resp 18 S; Pulse Ox 98% on R/A; jw7 06:00 BP 120 / 69; Pulse 69; Resp 17 S; Pulse Ox 98% on R/A; jw7 06:57 BP 127 / 75; Pulse 70; Resp 18 S; Pulse Ox 99% on R/A; as6 08:00 BP 124 / 69; Pulse 61; Resp 17; Temp 97.8; Pulse Ox 99% on R/A; rs5 09:01 BP 126 / 74; Pulse 60; Resp 17; Pulse Ox 98% on R/A; rs5 09:35 BP 121 / 68; Pulse 66; Resp 17; Pulse Ox 98% on R/A; rs5 10:30 BP 127 / 67; Pulse 62; Resp 17; Pulse Ox 99% on R/A; rs5 04:33 Body Mass Index 29.29 (95.25 kg, 180.34 cm) jw7 04:33 Pain Scale: Adult jw7 ED Course: 04:28 Patient arrived in ED. rv1 04:33 Ena Sprague RN is Primary Nurse. jw7 04:34 Scot Daley MD is Attending Physician. sp4 04:37 Maintain EMS IV. Dressing intact. Good blood return noted. Site clean \T\ dry. Gauge \T\ as 6 site: 20g L AC. 04:39 Triage completed. jw7 04:39 Arm band placed on. jw7 04:45 Patient has correct armband on for positive identification. Bed in low position. Call jw7 light in reach. Side rails up X2. 04:58 XRAY Chest (1 view) In Process Unspecified. EDMS 04:58 Pelvis XRAY In Process Unspecified. EDMS 05:24 CT Head C Spine In Process Unspecified. EDMS 06:47 Cesar Orr MD is Hospitalizing Provider. sp4 06:58 No provider procedures requiring assistance completed. Patient admitted, IV remains in as6 place. 07:19 Urine Drug Screen Sent. rs5 07:19 Alcohol Level Sent. rs5 10:21 Basic Metabolic Panel Sent. rs5 Administered Medications: 04:45 Drug: fentaNYL (PF) IVP 50 mcg Route: IVP; Site: left antecubital; rv 06:58 Follow up: Response: No adverse reaction jw7 04:45 Drug: Ondansetron IVP 4 mg Route: IVP; Site: left antecubital; rv 06:58 Follow up: Response: No adverse reaction jw7 04:45 Drug: NS 0.9% IV 1000 ml Route: IV; Rate: 1 bolus; Site: left antecubital; rv 06:58 Follow up: Response: No adverse reaction; IV Status: Completed infusion; IV Intake: jw7 1000ml 06:57 Drug: Broad Top PO 10 mg-325 mg 1 tabs Route: PO; jw7 06:57 Drug: Cyclobenzaprine PO 10 mg Route: PO; jw7 06:57 Drug: Promethazine PO 25 mg Route: PO; jw7 06:58 Drug: NS 0.9% IV 1000 ml Route: IV; Rate: 125 ml/hr; Site: right antecubital; jw7 Medication: 06:57 VIS not applicable for this client. as6 Intake: 06:58 IV: 1000ml; Total: 1000ml. jw7 Outcome: 06:48 Decision to Hospitalize by Provider. sp4 06:58 Condition: stable as6 06:58 Instructed on the need for admit. 10:42 Admitted to Med/surg accompanied by tech, via wheelchair, room 223, Report called to rsKg Morel RN 11:02 Patient left the ED. rs5 Signatures: Dispatcher [employer] EDMS Magalie Mcpherson RN RN aa5 Ramses Rangel, RN RN rv Fritz Laboy RN RN as6 Ena Sprague, RN RN jw7 PattersonCat barth rv1 Mickey Douglas RN RN rs5 Scot Daley MD MD sp4 Corrections: (The following items were deleted from the chart) 04:59 04:58 Care prior to arrival: BG 174 jw7 jw7 09:30 07:24 General: Appears in no apparent distress. comfortable, Behavior is calm, rs5 cooperative, rs5 09:30 07:24 Pain: Complains of pain in posterior part of head, left side Pain currently is 8 rs5 out of 10 on a pain scale. Quality of pain is described as throbbing, Is continuous, rs5 09:37 09:21 Reassessment: Patient and/or family updated on plan of care and expected rs5 duration. Pain level reassessed. rs5 09:37 08:30 Pain: Complains of pain in back of head, left side rs5 rs5 09:38 08:30 Pain: Complains of pain in back of head, left side Pain radiates to neck Pain rs5 currently is 8 out of 10 on a pain scale. Quality of pain is described as throbbing, Is continuous, rs5 09:38 09:21 Reassessment: Patient and/or family updated on plan of care and expected rs5 duration. Pain level reassessed. 100% of breakfast tray consumed. rs5 09:54 08:30 Reassessment: Patient and/or family updated on plan of care and expected rs5 duration. Pain level reassessed. Patient is alert, oriented x 3, equal unlabored respirations, skin warm/dry/pink. Breakfast tray to bedside. rs5 09:55 08:30 Pain: Complains of pain in back of head, left side Pain radiates to neck Pain rs5 currently is 8 out of 10 on a pain scale. Quality of pain is described as throbbing, Is continuous, rs5 09:55 09:21 Reassessment: Patient and/or family updated on plan of care and expected rs5 duration. Pain level reassessed. 100% of breakfast tray consumed. Hospitalist at bedside. rs5
[2023-05-17] MEDS ORDERED: PROMETHAZINE 25 MG TABLET ONE (07:02)
[2023-05-17] MEDS ORDERED: CYCLOBENZAPRINE 10 MG TAB ONE (07:02)
[2023-05-17] MEDS ORDERED: HYDROCODONE/APAP 10/325 TAB ONE (07:03)
[2023-05-17 07:34] LABS: Barbiturates NEGATIVE (NEGATIVE); Benzodiazepines POSITIVE (NEGATIVE); Cocaine NEGATIVE (NEGATIVE); METHAMPHETAM NEGATIVE (NEGATIVE); Methadone NEGATIVE (NEGATIVE); Opiates NEGATIVE (NEGATIVE); Phencyclidine NEGATIVE (NEGATIVE); THC Cannibis POSITIVE (NEGATIVE)
[2023-05-17] MEDS ORDERED: ACETAMINOPHEN 325 MG TABLET PO PRN (08:43)
[2023-05-17] MEDS ORDERED: TRAMADOL HCL 50 MG TAB PO PRN (08:43)
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
[2023-05-17] MEDS: ENOXAPARIN 40 MG/0.4 ML SQ SCH (09:00)
[2023-05-17] MEDS: ASPIRIN 81 MG CHEWABLE TABLET PO SCH (09:00)
[2023-05-17] MEDS ORDERED: TRAMADOL HCL 50 MG TAB ONE (09:25)
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
[2023-05-17] MEDS ORDERED: ASPIRIN 81 MG CHEWABLE TABLET ONE (10:20)
[2023-05-17] MEDS ORDERED: ENOXAPARIN 40 MG/0.4 ML SQ ONE (10:20)
[2023-05-17 10:54] LABS: Magnesium 2.1 mg/dL (1.6-2.4); Phosphorus 3.2 mg/dL (2.5-4.9); Thyroid Stimulating Hormone 0.644 uIU/mL (0.358-3.740)
[2023-05-17 11:30] VITALS: BMI 29.2
--- NOTE | 2023-05-17 11:41 | RAD REPORT ---
EXAM DESCRIPTION: RAD - Pelvis - 05/17/2023 4:56 am CLINICAL HISTORY: 68 years Male fall , pain TECHNIQUE: One x-ray view of the pelvis was performed on 05/17/2023 at 4:49 AM. COMPARISON: CT abdomen and pelvis performed on 02/09/2023 FINDINGS: There is no evidence of fracture or dislocation. There are mild degenerative changes of th e visualized lower lumbar spine and pelvis. No focal lytic or sclerotic bone lesions are seen. Bone mineralization is normal. No acute soft tissue abnormalities are identified. There are remote postsurgical changes consistent w ith hernia repair in the right inguinal region. Calcified phleboliths are noted in the left hemipelvi s IMPRESSION: No evidence of acute osseous injury. There are mild degenerative changes of the visualiz ed lower lumbar spine and pelvis. Electronically signed by: Oksana Barajas DO 05/17/2023 5:17 AM CDT Due to temporary technical issues with the PACS/Fluency reporting system, reports are being signed by the in house radiologist without review as a courtesy to ensure prompt reporting. The interpreting r adiologist is fully responsible for the content of the report.
--- NOTE | 2023-05-17 11:47 | RAD REPORT ---
EXAM DESCRIPTION: RAD - Chest Single View - 05/17/2023 4:56 am CLINICAL HISTORY: 68 years Male, CHEST PAIN COMPARISON: Chest x-ray and chest CT performed on 02/09/2023 TECHNIQUE: Single portable x-ray view of the chest performed on 05/17/2023 at 4:52 AM FINDINGS: The lungs are well expanded and are clear. There is no evidence of a pneumothorax. The cardiac silhouette is normal in size and configuration. The mediastinal contours are normal. No acute osseous abnormality is identified. No acute soft tissue abnormalities are seen. Lines and tubes: None. Free air: None IMPRESSION: No evidence of acute intrathoracic disease. Electronically signed by: Oksana Barajas DO 05/17/2023 5:14 AM CDT Due to temporary technical issues with the PACS/Fluency reporting system, reports are being signed by the in house radiologist without review as a courtesy to ensure prompt reporting. The interpreting r adiologist is fully responsible for the content of the report.
--- NOTE | 2023-05-17 11:52 | RAD REPORT ---
EXAM DESCRIPTION: CT - Head C Spine Mpr Wo Con - 05/17/2023 6:32 am CLINICAL HISTORY: The patient is 68 years old and is Male; fall, neck pain TECHNIQUE: Axial computed tomography images of the head/brain and cervical spine without intravenous contrast. Sagittal and coronal reformatted images were created and reviewed. This CT exam was pe rformed using one or more of the following dose reduction techniques: automated exposure control, a djustment of the mA and/or kV according to patient size, and/or use of iterative reconstruction techn ique. COMPARISON: CT head February 13, 2023. CT head/cervical spine April 15, 2021. FINDINGS: Brain: Unremarkable. No hemorrhage. No significant white matter disease. No edema. Ventricles: Unremarkable. No ventriculomegaly. Skull: No acute fracture. Sinuses: Unremarkable as visualized. No acute sinusitis. Mastoid air cells: Unremarkable as visualized. No mastoid effusion. Vertebrae: No acute cervical spine fracture. Multilevel degenerative facet arthropathy. Posterior osteophytes C5-C6 and C6-7. Normal alignment. Discs/spinal canal/neural foramina: No acute findings. No spinal canal stenosis. Soft tissues: Unremarkable. Pleural space: No apical pneumothorax. IMPRESSION: 1. No intracranial hemorrhage. No acute skull fracture. 2. No acute cervical spine fracture. 3. Multilevel degenerative facet arthropathy. Electronically signed by: Caitlin Em MD 05/17/2023 5:42 AM CDT Due to temporary technical issues with the PACS/Fluency reporting system, reports are being signed by the in house radiologist without review as a courtesy to ensure prompt reporting. The interpreting r adiologist is fully responsible for the content of the report.
[2023-05-17] MEDS ORDERED: HYDRALAZINE HCL 20 MG/ML VIAL IV PRN (12:05)
[2023-05-17] MEDS: HYDROCODONE/APAP 10/325 TAB PO PRN ×3 (12:22→23:40)
[2023-05-17 12:53] LABS: Specific Gravity 1.024 (1.005-1.030); Urine Bacteria <20 /HPF (<20); Urine Bilirubin NEGATIVE (Negative); Urine Blood Negative (Negative); Urine Clarity Extremely Turbid (Clear); Urine Color Yellow (Yellow); Urine Glucose 1+ (Negative); Urine Mucus 1+ /HPF (None Seen); Urine Protein 1+ (Negative); Urine RBC <5 /HPF (None Seen); Urine Urobilinogen 1+ (Normal); Urine pH 5.5 (5.0-7.0)
--- NOTE | 2023-05-17 12:59 | RAD REPORT ---
EXAM DESCRIPTION: CT - Abdomen Pelvis Wo Contrast - 05/17/2023 12:38 pm CLINICAL HISTORY: Abdominal pain COMPARISON: February 2023 TECHNIQUE: Computed axial tomography of the abdomen and pelvis was obtained. IV and oral contrast we re not requested. All CT scans are performed using dose optimization technique as appropriate and may include automated exposure control or mA/KV adjustment according to patient size. FINDINGS: The evaluation of solid organs, vessels and bowel is limited secondary to the lack of con trast administration. The liver, spleen, pancreas, and kidneys appear grossly normal Very small adrenal nodules likely benign. Mild gastric distention. There is no evidence of diverticulitis. Spondylosis lumbar spine resulting in spinal stenosis. Postsurgical changes right inguinal hernia repair. Small left inguinal hernia contains fat. Small umbilical hernia IMPRESSION: Mild gastric distention
[2023-05-17] MEDS ORDERED: NA CHLORIDE 0.9% 1,000 ML IV SCH (13:00)
--- NOTE | 2023-05-17 13:03 | EKG ---
Test Date: 2023-05-17 Test Time: 04:32:13 Wine Manager: MEASUREMENT RESULTS: Intervals: Rate: 92 UT: 114 QRSD: 96 QT: 372 QTc: 460 [place]: P: 71 UT: 114 QRS: 68 T: 71 INTERPRETIVE STATEMENTS: Normal sinus rhythm Nonspecific ST abnormality Abnormal ECG Compared to ECG 02/17/2023 15:26:09 ST (T wave) deviation now present Atrial premature complex(es) no longer present Short UT interval no longer present Electronically Signed On 05-17-23 13:02:48 CDT by Nilay Jones
[2023-05-17] MEDS: NACHLORIDE 0.45% 1,000 ML IV SCH ×2 (15:24→23:40)
--- NOTE | 2023-05-17 19:58 | CON ---
Date of Consultation: 05/17/2023 Reason For Consultation: Chest pain and syncope. History Of Present Illness: This is a 68-year-old, past medical history of hypertension, dyslipidemi a, presented with chest pain and syncopal episode. Reported that he stood up to get some food and be came dizzy and passed out. He also reported chest pain on and off. Severity can be 6 to 8/10, not r elated to exertion, and no radiation. Past Medical History: As outlined above in the HPI. Medications: Refer to reconciliation sheet for detailed list. Allergies: NO KNOWN DRUG ALLERGIES. Family History: No premature coronary artery disease or cancer. Social History: Does not smoke or drink. Does not use any drugs. Review of Systems: All systems were reviewed, they were negative except what mentioned in HPI. Physical Examination: Vital signs: Reviewed. Head and Neck: Pupils are equal, reactive to light. Intact eye movements. No JVD. No cervical lym phadenopathy. Neck is supple. Thyroid is not enlarged. Lungs: Clear to auscultation bilaterally. No rhonchi, wheezing, or crackles. No accessory muscle u se. Heart: Regular rate and rhythm. No extra sounds. Abdomen: Soft, nontender. Bowel sounds positive. No organomegaly. No masses or hernia. No rigidi ty or rebound. Extremities: No edema, clubbing, or cyanosis. Intact pulses. Skin: No rash. No nodule. Neurologic: Alert, awake, oriented x3. No acute focal deficits appreciated. Investigations: Creatinine is 1.82 and BUN 27. Cardiac enzymes x2 are negative. When he came in, h is creatinine was 2.2. Assessment And Recommendations: 1.Syncope, likely due to hypotension and dehydration. His blood pressure was very low on arrival. Recommend gentle IV fluid management and monitor clinically. 2.Chest pain. Cardiac enzymes are negative. He is already scheduled to have cardiac workup as an o utpatient with a stress test and echo. 3.Acute renal failure due to severe dehydration. Should improve with the gentle hydration and reass ess. SR/MODL Voice ID: [id number] Report ID: [id number]
[2023-05-18] MEDS: MELATONIN 5 MG TABLET PO PRN (01:38)
[2023-05-18] MEDS ORDERED: MELATONIN 5 MG TABLET PO ONE (01:47)
[2023-05-18] MEDS: HYDROCODONE/APAP 10/325 TAB PO PRN ×3 (04:57→18:03)
[2023-05-18 07:49] LABS: Absolute Lymphocytes (CBC) 3.5 K/uL (0.7-4.9); Hematocrit 35.8 % (39.6-49.0); MCV 95.5 fL (80-100); MPV 6.8 fL (7.6-11.3); Platelets 189 thou/uL (152-406); RBC Red Blood Cell Count 3.75 M/uL (4.33-5.43)
[2023-05-18] MEDS: ASPIRIN 81 MG CHEWABLE TABLET PO SCH (08:51)
[2023-05-18] MEDS: ENOXAPARIN 40 MG/0.4 ML SQ SCH (08:51)
[2023-05-18] MEDS: ONDANSETRON 4 MG/2 ML VIAL IV PRN (12:20)
--- NOTE | 2023-05-18 13:26 | P.PN ---
Date of Service: 05/18/23 Subjective: No chest pain feels a little dizzy no acute events overnight +chronic back pain / radicular pain down left buttock/leg ROS: 10 point ROS as noted above, otherwise negative Physical Exam: GEN: Alert, oriented, NAD HEENT: Normal conjunctiva, sclera anicteric CV: Regular rate and rhythm, no edema Pulm: Nonlabored respirations on room air ABD: Soft, nontender, nondistended Integumentary: No rashes Neuro: Normal speech, normal affect vitals reviewed Problem List: Chest pain Syncope MARÍA ELENA on CKD 2 Hypertension Hyperlipidemia Chronic back pain chronic LLE radicular pain Hypokalemia. Cannabis use disorder Chest pain Syncope Stress test 02/15/2023 negative troponins negative x3, monitor on tele Cardiology consulted. orthostatic vitals negative MARÍA ELENA on CKD 2. likely prerenal secondary to poor p.o. hydration complicated by ibuprofen and lisinopril Nephrology consulted. Continue IVF Avoid nephrotoxins and NSAIDs. Abdominal pain CT abdomen(05/17): Mild gastric distention PRN pain medication Neck pain CT head/spine (05/17): No acute cervical spine fracture. PRN pain medication Hypertension. Stable. We will manage BP with hydralazine as needed. Hyperlipidemia. Continue statin. Chronic back pain. PRN pain medication Hypokalemia. Replete as needed. Cannabis use disorder. UDS positive for benzos and THC. Patient counseled on drug cessation. VTE: Lovenox Code: Full Dispo: Home ~1 day
[2023-05-18] MEDS: GABAPENTIN 100 MG CAP PO SCH ×2 (16:22→21:10)
--- NOTE | 2023-05-18 19:40 | PN ---
Date of Progress Note: 05/18/2023 Subjective: Seen by bedside. Review of Systems: No chest pain, shortness of breath, orthopnea, cough. No nausea, vomiting, diarrhea. All other syst ems reviewed are negative. Physical Examination: Vital Signs: Reviewed. Head and Neck: Pupils are equal, reactive to light. Intact eye movements. No JVD. No cervical lym phadenopathy. Neck is supple. Thyroid is not enlarged. Lungs: Clear to auscultation bilaterally. No rhonchi, wheezing, or crackles. No accessory muscle u se. Heart: Regular rate and rhythm. No extra sounds. Abdomen: Soft, nontender. Bowel sounds positive. No organomegaly. No masses or hernia. No rigidi ty or rebound. Extremities: No edema, clubbing, cyanosis. Intact pulses. Skin: No rash. Neurologic: Alert, awake, oriented x3. No acute pathology. Lymph nodes: No cervical or groin lymphadenopathy. Investigations: His BUN is 26, creatinine 1.06. Cardiac enzymes are negative. Assessment/recommendations: 1.Syncope due to dehydration and hypotension. This is resolved. No cardiac arrhythmias noticed. C ardiac enzymes are negative. No further workup is needed for this issue. 2.Chest pain. Negative cardiac enzymes. We will plan for outpatient stress test and echo. 3.Acute renal failure due to dehydration, resolved. 4.Hypertension. Blood pressure is elevated. Recommend to start lisinopril 10 mg daily and adjust f urther if needed. SR/MODL Voice ID: [id number] Report ID: [id number]
[2023-05-18] MEDS ORDERED: ALPRAZOLAM 0.25 MG TABLET PO ONE (20:54)
[2023-05-18] MEDS ORDERED: lisinopriL 10 MG TAB PO ONE (21:24)
--- NOTE | 2023-05-18 21:28 | P.PN ---
Date of Service: 05/18/23 Vital Signs Temp Pulse Resp BP Pulse Ox 97.8 F 71 18 178/84 H 97 05/18/23 20:00 05/18/23 20:00 05/18/23 20:00 05/18/23 20:00 05/18/23 20:00 Medications Acetaminophen (Acetaminophen 325 Mg Tablet) 650 mg PO Q6H PRN PRN Reason: TEMP > 100' F Hydrocodone Bitart/Acetaminophen (Hydrocodone/Apap 10/325 Tab) 1 tab PO Q6H PRN PRN Reason: Pain scale 5-7 (Moderate) Last Admin: 05/18/23 18:03 Dose: 1 tab Aspirin (Aspirin 81 Mg Chewable Tablet) 81 mg PO DAILY [facility] Last Admin: 05/18/23 08:51 Dose: 81 mg Enoxaparin Sodium (Enoxaparin 40 Mg/0.4 Ml) 40 mg SQ DAILY [facility] Last Admin: 05/18/23 08:51 Dose: 40 mg Gabapentin (Gabapentin 100 Mg Cap) 200 mg PO TID [facility] Last Admin: 05/18/23 21:10 Dose: 200 mg Hydralazine HCl (Hydralazine Hcl 20 Mg/Ml Vial) 10 mg IV Q6HP PRN PRN Reason: FOR SBP>160 OR DBP>100 MMHG Melatonin (Melatonin 5 Mg Tablet) 5 mg PO BEDTIME PRN PRN PRN Reason: INSOMNIA Last Admin: 05/18/23 01:38 Dose: 5 mg Ondansetron HCl (Ondansetron 4 Mg/2 Ml Vial) 4 mg IV Q6HP PRN PRN Reason: NAUSEA / VOMITING Last Admin: 05/18/23 12:20 Dose: 4 mg Sodium Chloride (Flush Normal Saline 10 Ml) 10 ml IV BID [facility] Last Admin: 05/18/23 21:10 Dose: 10 ml Assessment/ Plan: Nephrology No dyspnea No chest pain Still in pain from his fall No acute events overnight Vitals, medications, blood work and imaging reviewed in the chart. General: Oriented x3, Cooperative HEENT: Normocephalic Neck: Supple Respiratory: Clear to auscultation bilaterally Cardiovascular: No edema, Regular rate/rhythm Gastrointestinal: Soft and benign, Non-distended Musculoskeletal: No clubbing, No contractures Integumentary: No rashes, No cyanosis Neurological: Normal speech Laboratory Data (last 24 hrs) 05/17/23 05/17/23 05/17/23 04:35 04:35 04:35 WBC 12.60 H Hgb 13.9 Hct 39.0 L Plt Count 193 PT 11.1 INR 1.01 Sodium 138 Potassium 3.4 L BUN 26 H Creatinine 2.21 H Glucose 201 H Magnesium 1.9 Total Bilirubin 0.8 AST 30 ALT 62 H Alkaline Phosphatase 60 Imagings Data: [id number] EXAM DESCRIPTION: RAD - Chest Single View - 05/17/2023 4:56 am CLINICAL HISTORY: 68 years Male, CHEST PAIN COMPARISON: Chest x-ray and chest CT performed on 02/09/2023 TECHNIQUE: Single portable x-ray view of the chest performed on 05/17/2023 at 4:52 AM FINDINGS: The lungs are well expanded and are clear. There is no evidence of a pneumothorax. The cardiac silhouette is normal in size and configuration. The mediastinal contours are normal. No acute osseous abnormality is identified. No acute soft tissue abnormalities are seen. Lines and tubes: None. Free air: None IMPRESSION: No evidence of acute intrathoracic disease. [id number] EXAM DESCRIPTION: CT - Abdomen Pelvis Wo Contrast - 05/17/2023 12:38 pm CLINICAL HISTORY: Abdominal pain COMPARISON: February 2023 TECHNIQUE: Computed axial tomography of the abdomen and pelvis was obtained. IV and oral contrast were not requested. All CT scans are performed using dose optimization technique as appropriate and may include automated exposure control or mA/KV adjustment according to patient size. FINDINGS: The evaluation of solid organs, vessels and bowel is limited secondary to the lack of contrast administration. The liver, spleen, pancreas, and kidneys appear grossly normal Very small adrenal nodules likely benign. Mild gastric distention. There is no evidence of diverticulitis. Spondylosis lumbar spine resulting in spinal stenosis. Postsurgical changes right inguinal hernia repair. Small left inguinal hernia contains fat. Small umbilical hernia IMPRESSION: Mild gastric distention Conclusions/Impression: Stage II MARÍA ELENA in the setting of hypotension and hypovolemia complicated by ibuprofen and lisinopril CKD II with Proteinuria -No NSAIDs -Hold IVF Hypokalemia -Replete prn HTN with CKD -Restart Lisinopril Hyperglycemia A1C 5.3 -No sugar diet Acute Pain due to fall -[place] & Tylenol prn -No NSAIDs Hospitalist note reviewed
[2023-05-18] MEDS: QUETIAPINE 100MG TAB PO SCH (22:56)
[2023-05-19 04:05] LABS: Albumin 3.2 g/dL (3.4-5.0); Bilirubin Total 0.4 mg/dL (0.2-1.0); Potassium 4.1 mEq/L (3.5-5.1)
[2023-05-19] MEDS: HYDROCODONE/APAP 10/325 TAB PO PRN ×3 (04:37→18:31)
[2023-05-19 08:27] LABS: Specific Gravity 1.009 (1.005-1.030); Urine Bacteria None Seen /HPF (<20); Urine Bilirubin NEGATIVE (Negative); Urine Blood Negative (Negative); Urine Clarity Clear (Clear); Urine Color Colorless (Yellow); Urine Glucose NEGATIVE (Negative); Urine Mucus Slight /HPF (None Seen); Urine Protein NEGATIVE (Negative); Urine RBC <5 /HPF (None Seen); Urine Urobilinogen Normal (Normal)
[2023-05-19] MEDS: GABAPENTIN 100 MG CAP PO SCH ×3 (08:47→20:19)
[2023-05-19] MEDS: lisinopriL 10 MG TAB PO SCH (08:48)
[2023-05-19] MEDS: DULOXETINE 30 MG CAP PO SCH (08:49)
[2023-05-19] MEDS: CLOPIDOGREL 75 MG TABLET PO SCH (08:49)
[2023-05-19] MEDS: ASPIRIN 81 MG CHEWABLE TABLET PO SCH (08:49)
[2023-05-19] MEDS: QUETIAPINE 100MG TAB PO SCH ×2 (08:50→20:20)
[2023-05-19] MEDS: ENOXAPARIN 40 MG/0.4 ML SQ SCH (08:50)
[2023-05-19 09:52] LABS: UR MICROALBUMIN 0.6 mg/dL (< 1.9)
[2023-05-19 09:55] LABS: UR PROTEIN < 5.0 mg/dL (<11.9); Urine Protein/Creatinine Ratio ND ratio (<0.15)
--- NOTE | 2023-05-19 14:12 | P.PN ---
Date of Service: 05/19/23 Subjective: Doing okay continues to feel dizzy when standing up no acute events overnight no BM, +flatus ROS: 10 point ROS as noted above, otherwise negative Physical Exam: GEN: Alert, oriented, NAD HEENT: Normal conjunctiva, sclera anicteric CV: Regular rate and rhythm, no edema Pulm: Nonlabored respirations on room air ABD: Soft, nontender, nondistended Integumentary: No rashes Neuro: Normal speech, normal affect vitals reviewed Problem List: Chest pain Syncope MARÍA ELENA on CKD 2 Hypertension Hyperlipidemia Chronic back pain Dementia chronic LLE radicular pain Hypokalemia Cannabis use disorder Chest pain Syncope Stress test 02/15/2023 negative troponins negative x3, monitor on tele Cardiology consulted. orthostatic vitals negative repeat MARÍA ELENA on CKD 2. likely prerenal secondary to poor p.o. hydration complicated by ibuprofen and lisinopril Nephrology consulted. Continue IVF Avoid nephrotoxins and NSAIDs. Abdominal pain CT abdomen(05/17): Mild gastric distention PRN pain medication Neck pain CT head/spine (05/17): No acute cervical spine fracture. PRN pain medication Hypertension. Stable. We will manage BP with hydralazine as needed. Hyperlipidemia. Continue statin. Chronic back pain. PRN pain medication Hypokalemia. Replete as needed. Cannabis use disorder. UDS positive for benzos and THC. Patient counseled on drug cessation. VTE: Lovenox Code: Full Dispo: Home ~1 day
[2023-05-19] MEDS: ATORVASTATIN 20 MG TAB PO SCH (20:20)
[2023-05-19] MEDS: MELATONIN 5 MG TABLET PO PRN (20:20)
[2023-05-20] MEDS: HYDROCODONE/APAP 10/325 TAB PO PRN ×3 (01:19→18:24)
[2023-05-20 07:37] LABS: Magnesium 1.9 mg/dL (1.6-2.4); Potassium 4.5 mEq/L (3.5-5.1)
[2023-05-20] MEDS: QUETIAPINE 100MG TAB PO SCH ×2 (08:42→20:19)
[2023-05-20] MEDS: ENOXAPARIN 40 MG/0.4 ML SQ SCH (08:42)
[2023-05-20] MEDS: lisinopriL 10 MG TAB PO SCH (08:43)
[2023-05-20] MEDS: CLOPIDOGREL 75 MG TABLET PO SCH (08:43)
[2023-05-20] MEDS: ASPIRIN 81 MG CHEWABLE TABLET PO SCH (08:43)
[2023-05-20] MEDS: DULOXETINE 30 MG CAP PO SCH (08:43)
--- NOTE | 2023-05-20 09:03 | P.PN ---
Date of Service: 05/20/23 Subjective: Dizziness continues, slightly improved worsened when standing up, takes ~15 min once sitting down to feel better dizziness described as room spinning no acute events overnight ROS: 10 point ROS as noted above, otherwise negative Physical Exam: GEN: Alert, oriented, NAD HEENT: Normal conjunctiva, sclera anicteric CV: Regular rate and rhythm, no edema Pulm: Nonlabored respirations on room air ABD: Soft, nontender, nondistended Integumentary: No rashes Neuro: Normal speech, normal affect; PERRL, EOMI, no nystagmus vitals reviewed Problem List: Syncope Head/Neck pain s/p fall Dizziness / Vertigo, suspected concussion MARÍA ELENA on CKD 2 Chest pain Abdominal pain Hypertension Hyperlipidemia Chronic back pain Dementia chronic LLE radicular pain Hypokalemia Cannabis use disorder Syncope Head/Neck pain s/p fall Dizziness / Vertigo, suspected concussion CT head/spine (05/17): No acute cervical spine fracture. MRI brain (05/09/23): No acute or concerning intracranial abnormalities. troponins negative x3, monitor on tele Cardiology consulted. orthostatic vitals negative repeat check negative 05/19 suspect dizziness etiology from concussion post fall may need repeat imaging if no further improvement vs neuro consult PRN pain medication MARÍA ELENA on CKD 2 likely prerenal secondary to poor p.o. hydration complicated by ibuprofen and lisinopril Nephrology consulted. Continue IVF Avoid nephrotoxins and NSAIDs. Chest pain Stress test 02/15/2023 negative troponins negative x3, monitor on tele Cardiology consulted. tentative plan for stress test / echo as outpatient Abdominal pain CT abdomen(05/17): Mild gastric distention PRN pain medication Hypertension. Stable. We will manage BP with hydralazine as needed. Hyperlipidemia. Continue statin. chronic LLE radicular pain. PRN pain medication Hypokalemia. Replete as needed. Cannabis use disorder. UDS positive for benzos and THC. Patient counseled on drug cessation. VTE: Lovenox Code: Full Dispo: Home ~2-3 days pending able to ambulate
--- NOTE | 2023-05-20 13:11 | P.PN ---
Nephrology note (S) Pt still citing some dizziness and weakness with standing and even short ambulation to the bedside sink Vitals, medications, blood work and imaging reviewed in the chart. General: Oriented x3, Cooperative HEENT: Normocephalic Neck: Supple Respiratory: Clear to auscultation bilaterally Cardiovascular: No edema, Regular rate/rhythm Gastrointestinal: Soft and benign, Non-distended Musculoskeletal: No clubbing, No contractures Integumentary: No rashes, No cyanosis Neurological: Normal speech, awake, alert, no sig LE weakness Imagings Data: [id number] EXAM DESCRIPTION: RAD - Chest Single View - 05/17/2023 4:56 am CLINICAL HISTORY: 68 years Male, CHEST PAIN COMPARISON: Chest x-ray and chest CT performed on 02/09/2023 TECHNIQUE: Single portable x-ray view of the chest performed on 05/17/2023 at 4:52 AM FINDINGS: The lungs are well expanded and are clear. There is no evidence of a pneumothorax. The cardiac silhouette is normal in size and configuration. The mediastinal contours are normal. No acute osseous abnormality is identified. No acute soft tissue abnormalities are seen. Lines and tubes: None. Free air: None IMPRESSION: No evidence of acute intrathoracic disease. [id number] EXAM DESCRIPTION: CT - Abdomen Pelvis Wo Contrast - 05/17/2023 12:38 pm CLINICAL HISTORY: Abdominal pain COMPARISON: February 2023 TECHNIQUE: Computed axial tomography of the abdomen and pelvis was obtained. IV and oral contrast were not requested. All CT scans are performed using dose optimization technique as appropriate and may include automated exposure control or mA/KV adjustment according to patient size. FINDINGS: The evaluation of solid organs, vessels and bowel is limited secondary to the lack of contrast administration. The liver, spleen, pancreas, and kidneys appear grossly normal Very small adrenal nodules likely benign. Mild gastric distention. There is no evidence of diverticulitis. Spondylosis lumbar spine resulting in spinal stenosis. Postsurgical changes right inguinal hernia repair. Small left inguinal hernia contains fat. Small umbilical hernia IMPRESSION: Mild gastric distention Conclusions/Impression: Stage I MARÍA ELENA episode in the setting of mild vol depletion, relative hypotension, concurrent ACEi/ARB use, possible NSAIDs use -Cr level has normalized, IVF stopped. Repeat UA bland HTN history with labile pressures, dizziness complaints, reports of near syncope -(re)check orthostatic vitals, hold BP meds as BP has been recorded as low as systolic 90s over the past 24h Luis Weber MD, [facility]
[2023-05-20] MEDS: NA CHLORIDE 0.9% 1,000 ML IV SCH (14:41)
--- NOTE | 2023-05-20 16:54 | PN ---
Date of Progress Note: 05/19/2023 Subjective: Seen by bedside. Doing clinically well. Review of Systems: No chest pain, shortness of breath, orthopnea, or cough. No nausea, vomiting, or diarrhea. All othe r systems were reviewed, they were negative. Objective: Vital Signs: Reviewed. Head and Neck: Pupils are equal, reactive to light. Intact eye movements. No JVD. No cervical lym phadenopathy. Neck is supple. Thyroid is not enlarged. Lungs: Clear to auscultation bilaterally. No rhonchi, wheezing, or crackles. No accessory muscle u se. Heart: Regular rate and rhythm. No extra sounds. Abdomen: Soft, nontender. Bowel sounds positive. No organomegaly. No masses or hernia. No rigidi ty or rebound. Extremities: No edema, clubbing, or cyanosis. Intact pulses. Skin: No rash. No nodule. Neurologic: Alert, awake, oriented x3. No acute focal deficits appreciated. Lymph Nodes: No cervical or axillary lymphadenopathy. Investigations: BUN 22, creatinine 1.0, hemoglobin is 12.8. Assessment And Recommendations: 1.Syncope due to dehydration. This is resolved. No arrhythmia. Continue to monitor. 2.Chest pain. Negative cardiac enzymes. Plan for outpatient stress test and an echo. 3.Generalized weakness. Recommend physical therapy. 4.Acute renal failure. This is resolved. SR/MODL Voice ID: [id number] Report ID: [id number]
[2023-05-20] MEDS: ATORVASTATIN 20 MG TAB PO SCH (20:19)
[2023-05-20] MEDS: MELATONIN 5 MG TABLET PO PRN (20:20)
[2023-05-21] MEDS: HYDROCODONE/APAP 10/325 TAB PO PRN ×3 (01:08→18:58)
[2023-05-21 03:16] LABS: Absolute Lymphocytes (CBC) 1.3 K/uL (0.7-4.9); Hematocrit 34.4 % (39.6-49.0); MCV 95.7 fL (80-100); MPV 7.4 fL (7.6-11.3); Platelets 166 thou/uL (152-406)
[2023-05-21 03:36] LABS: Albumin 2.9 g/dL (3.4-5.0)
[2023-05-21] MEDS: NA CHLORIDE 0.9% 1,000 ML IV SCH ×5 (05:19→23:30)
--- NOTE | 2023-05-21 07:08 | P.PN ---
Date of Service: 05/21/23 Subjective: Feels ~same as yesterday dizziness continues unchanged - scared to get out of bed no new / worsening problems ROS: 10 point ROS as noted above, otherwise negative Physical Exam: GEN: Alert, oriented, NAD HEENT: Normal conjunctiva, sclera anicteric CV: Regular rate and rhythm, no edema Pulm: Nonlabored respirations on room air ABD: Soft, nontender, nondistended Integumentary: No rashes Neuro: Normal speech, normal affect; PERRL, EOMI, no nystagmus abnormal vestibulo ocular reflex when turning head to left - eyes drag to left vitals reviewed Problem List: Syncope Head/Neck pain s/p fall Dizziness / Vertigo, suspected concussion MARÍA ELENA on CKD 2; prerenal; resolved Chest pain Abdominal pain Hypertension Hyperlipidemia Chronic back pain Dementia chronic LLE radicular pain Hypokalemia Cannabis use disorder Syncope Head/Neck pain s/p fall Dizziness / Vertigo, suspected concussion MRI brain (05/09/23): No acute or concerning intracranial abnormalities. - done as outpatient CT head/spine (05/17): No acute cervical spine fracture. CT head (05/21): ordered given new severe vertigo when standing; eval for CVA / bleed r/o cerebellar infarct abnormal vestibulo ocular reflex, concussion vs cerebellar infarct, will consult neuro MRI ordered troponins negative x3, monitor on tele Cardiology consulted. orthostatic vitals negative repeat check negative 05/19 cont aspirin, statin, plavix PRN meclizine added 05/21 MARÍA ELENA on CKD 2; prerenal; resolved prerenal secondary to poor p.o. hydration complicated by ibuprofen and lisinopril Nephrology consulted. Continue IVF Avoid nephrotoxins and NSAIDs. Chest pain Stress test 02/15/2023 negative troponins negative x3, monitor on tele Cardiology consulted. tentative plan for stress test / echo as outpatient Abdominal pain CT abdomen(05/17): Mild gastric distention PRN pain medication Hypertension. Stable. We will manage BP with hydralazine as needed. Hyperlipidemia. Continue statin. chronic LLE radicular pain. PRN pain medication Hypokalemia. Replete as needed. Cannabis use disorder. UDS positive for benzos and THC. Patient counseled on drug cessation. VTE: Lovenox Code: Full Dispo: Home ~2-3 days pending able to ambulate
[2023-05-21] MEDS: CLOPIDOGREL 75 MG TABLET PO SCH (08:38)
[2023-05-21] MEDS: QUETIAPINE 100MG TAB PO SCH ×2 (08:38→21:00)
[2023-05-21] MEDS: ENOXAPARIN 40 MG/0.4 ML SQ SCH (08:38)
[2023-05-21] MEDS: ASPIRIN 81 MG CHEWABLE TABLET PO SCH (08:38)
[2023-05-21] MEDS: DULOXETINE 30 MG CAP PO SCH (08:38)
[2023-05-21] MEDS: POTASS/SODIUM PHOSPHATE 1 PKT POWD.PACK PO SCH ×3 (08:39→11:36)
[2023-05-21] MEDS: MECLIZINE HCL 12.5 MG TAB PO PRN ×2 (13:56→21:00)
--- NOTE | 2023-05-21 17:00 | RAD REPORT ---
EXAM DESCRIPTION: CT - Head Brain W/Wo Con - 05/21/2023 4:39 pm CLINICAL HISTORY: new severe vertigo when standing COMPARISON: Head C Spine Mpr Wo Con dated 05/17/2023; Brain Wo Cont dated 05/09/2023 TECHNIQUE: CT scan of the brain was obtained with and without contrast. All CT scans are performed using dose optimization technique as appropriate and may include automated exposure control or mA/KV adjustment according to patient size. FINDINGS: No intracranial hemorrhage, hydrocephalus or extra-axial fluid collection.No areas of brai n edema or evidence of midline shift. The paranasal sinuses and mastoids are clear. The calvarium is intact. IMPRESSION: No acute intracranial abnormality. No abnormal enhancement.
[2023-05-21 18:01] VITALS: O2SAT 97
--- NOTE | 2023-05-21 19:58 | PN ---
Date of Progress Note: 05/21/2023 Subjective: Seen by bedside. Doing clinically well, but he is still having dizziness and cannot sta nd. Review of Systems: No chest pain, shortness of breath, orthopnea, cough. No nausea, vomiting, diarrhea. Has significan t dizziness affecting his ability to stand. All other systems reviewed and they were negative. Physical Examination: Vital Signs: Reviewed. Head and Neck: Pupils are equal, reactive to light. Intact eye movements. No JVD. No cervical lym phadenopathy. Neck is supple. Thyroid is not enlarged. Lungs: Clear to auscultation bilaterally. No rhonchi, wheezing, or crackles. No accessory muscle u se. Heart: Regular rate and rhythm. No extra sounds. Abdomen: Soft, nontender. Bowel sounds positive. No organomegaly. No masses or hernia. No rigidi ty or rebound. Extremities: No edema, clubbing, or cyanosis. Intact pulses. Skin: No rash. Neurologic: Alert, awake, oriented x3. No acute focal deficits appreciated. Investigations: BUN 22, creatinine 0.92, hemoglobin is 12.3. Assessment And Recommendations: 1.Hypotension and syncope due to dehydration. This is resolved. 2.Acute renal failure due to dehydration. This is resolved. 3.Significant dizziness. It is more of a vertigo. Neurological evaluation is recommended to rule o ut cerebrovascular accident or brainstem stroke. I would recommend MRI of the brain and Neurology evaluation. /MODL Voice ID: [id number] Report ID: [id number]
[2023-05-21] MEDS: ATORVASTATIN 20 MG TAB PO SCH (21:00)
[2023-05-21] MEDS: MELATONIN 5 MG TABLET PO PRN (21:01)
[2023-05-22] MEDS: HYDROCODONE/APAP 10/325 TAB PO PRN ×2 (01:14→08:54)
[2023-05-22 03:55] LABS: Magnesium 2.1 mg/dL (1.6-2.4); Phosphorus 2.5 mg/dL (2.5-4.9); Potassium 4.3 mEq/L (3.5-5.1)
--- NOTE | 2023-05-22 07:26 | P.PN ---
Date of Service: 05/22/23 Subjective: Patient reported no change, continues with dizziness no new/worse symptoms ROS: 10 point ROS as noted above, otherwise negative Physical Exam: GEN: Alert, oriented, NAD HEENT: Normal conjunctiva, sclera anicteric CV: Regular rate and rhythm, no edema Pulm: Nonlabored respirations on room air Neuro: Normal speech, normal affect; PERRL, EOMI vitals reviewed Problem List: Syncope Head/Neck pain s/p fall Dizziness / Vertigo, suspected concussion MARÍA ELENA on CKD 2; prerenal; resolved Chest pain Abdominal pain Hypertension Hyperlipidemia Chronic back pain Dementia chronic LLE radicular pain Hypokalemia Cannabis use disorder Syncope Head/Neck pain s/p fall Dizziness / Vertigo, suspected concussion MRI brain (05/09/23): No acute or concerning intracranial abnormalities. - done as outpatient CT head/spine (05/17): No acute cervical spine fracture. CT head (05/21): No acute intracranial abnormality MRI (05/22): No acute intracranial abnormality displayed abnormal vestibulo ocular reflex, concussion vs cerebellar infarct; Neuro consulted 05/22 Cardiology consulted troponins negative x3, monitor on tele orthostatic vitals negative repeat check negative 05/19 cont aspirin, statin, plavix PRN meclizine added 05/21 Patient initially reported no change on 05/23 discussed if no improvement will need SNF on discharge as he would be unsafe at home without enough health. He stated he would work on standing up / walking MARÍA ELENA on CKD 2; prerenal; resolved prerenal secondary to poor p.o. hydration complicated by ibuprofen and lisinopril Nephrology consulted. IV fluids DCd 05/22 Avoid nephrotoxins and NSAIDs. Chest pain Stress test 02/15/2023 negative troponins negative x3, monitor on tele Cardiology consulted. tentative plan for stress test / echo as outpatient Abdominal pain CT abdomen(05/17): Mild gastric distention PRN pain medication Hypertension. Stable. We will manage BP with hydralazine as needed. Hyperlipidemia. Continue statin. chronic LLE radicular pain. PRN pain medication Hypokalemia. Replete as needed. Cannabis use disorder. UDS positive for benzos and THC. Patient counseled on drug cessation. VTE: Lovenox Code: Full Dispo: Home ~1 day pending able to ambulate
[2023-05-22] MEDS: NA CHLORIDE 0.9% 1,000 ML IV SCH (08:51)
[2023-05-22] MEDS: QUETIAPINE 100MG TAB PO SCH ×2 (08:52→21:05)
[2023-05-22] MEDS: ENOXAPARIN 40 MG/0.4 ML SQ SCH (08:53)
[2023-05-22] MEDS: DULOXETINE 30 MG CAP PO SCH (08:53)
[2023-05-22] MEDS: CLOPIDOGREL 75 MG TABLET PO SCH (08:53)
[2023-05-22] MEDS: ASPIRIN 81 MG CHEWABLE TABLET PO SCH (08:53)
--- NOTE | 2023-05-22 12:46 | RAD REPORT ---
EXAM DESCRIPTION: MRI - Brain W/Wo Cont - 05/22/2023 11:54 am CLINICAL HISTORY: Cerebellar CVA. Fall. Vertigo COMPARISON: head CT May 21, 2023 TECHNIQUE: Axial, sagittal, and coronal magnetic images of the brain were obtained. 20 cc MultiHance administered intravenously FINDINGS: No significant abnormal signal within the brain The ventricles are normal in caliber. Diffusion-weighted/ ADC mapping sequences do not demonstrate evidence of an acute infarction. No abnormal enhancement within the brain is seen. An extra-axial fluid collection is not noted. Fluid within the sinuses/mastoids is not seen IMPRESSION: No acute intracranial abnormality displayed
[2023-05-22] MEDS: HYDROCODONE/APAP 5/325 MG TAB PO PRN (18:31)
[2023-05-22] MEDS: MELATONIN 5 MG TABLET PO PRN (21:05)
[2023-05-22] MEDS: ATORVASTATIN 20 MG TAB PO SCH (21:05)
[2023-05-22] MEDS: MECLIZINE HCL 12.5 MG TAB PO PRN (21:05)
[2023-05-22] MEDS: ONDANSETRON 4 MG/2 ML VIAL IV PRN (21:57)
[2023-05-23] MEDS: HYDROCODONE/APAP 5/325 MG TAB PO PRN ×2 (01:34→12:44)
[2023-05-23] MEDS: ASPIRIN 81 MG CHEWABLE TABLET PO SCH (08:20)
[2023-05-23] MEDS: DULOXETINE 30 MG CAP PO SCH (08:21)
[2023-05-23] MEDS: CLOPIDOGREL 75 MG TABLET PO SCH (08:21)
[2023-05-23] MEDS: QUETIAPINE 100MG TAB PO SCH (08:21)
[2023-05-23] MEDS: ENOXAPARIN 40 MG/0.4 ML SQ SCH (08:22)
--- NOTE | 2023-05-23 16:13 | P.DS ---
Admission Date: 05/19/23 Discharge Date: 05/23/23 Disposition: ROUTINE DISCHARGE Discharge Condition: FAIR Reason for Admission: Syncope Brief History of Present Illness: Patient is a 68-year-old male with a past medical history significant for hypertension, hyperlipidemia, chronic back pain who presented with complaint of syncope and chest pain. Patient reported that he was going to get some ice cream at home when after a few steps patient became dizzy and passed out. Patient reported he fell backward and hit the back of his head and neck on a coffee table. Patient reported left lower quadrant pain rated at 6/10 in severity and described as sharp in quality. Patient reported that he has been having neck pain after the fall with pain radiating down his left-side. Head CT did not show any acute disease. Chest x-ray unremarkable. Patient was hospitalized for further management. Hospital Course: Diagnosis: Syncope Head/Neck pain s/p fall Dizziness / Vertigo, suspected concussion MARÍA ELENA on CKD 2; prerenal; resolved Chest pain Abdominal pain Hypertension Hyperlipidemia Chronic back pain Dementia chronic LLE radicular pain Hypokalemia Cannabis use disorder Patient admitted to the medical floor and the following medical problems addressed Syncope Head/Neck pain s/p fall Dizziness / Vertigo, suspected concussion MRI brain (05/09/23): No acute or concerning intracranial abnormalities. - done as outpatient CT head/spine (05/17): No acute cervical spine fracture. CT head (05/21): No acute intracranial abnormality MRI (05/22): No acute intracranial abnormality displayed Cardiology consulted troponins negative x3. orthostatic vitals negative Patient placed on aspirin, statin, plavix Symptomatic management with meclizine. Patient reported improvement in the dizziness He has been able to ambulate without assistance in the hallway. MARÍA ELENA on CKD 2; prerenal; resolved prerenal secondary to poor p.o. hydration complicated by ibuprofen and lisinopril use. Seen by nephrology, patient refused treated with IV fluid. MARÍA ELENA resolved Chest pain Stress test 02/15/2023 negative troponins negative x3, monitor on tele Cardiology consulted. Dr. Jones recommend stress test / echo as outpatient Abdominal pain CT abdomen(05/17): Mild gastric distention PRN pain medication Hypertension. Stable. Resumed home antihypertensives. Hyperlipidemia. Continued statin. chronic LLE radicular pain. PRN pain medication Cannabis use disorder. UDS positive for benzos and THC. Patient counseled on drug cessation. Vital Signs/Physical Exam: Temp Pulse Resp BP Pulse Ox 98.4 F 77 16 149/87 H 95 05/23/23 11:51 05/23/23 11:51 05/23/23 13:44 05/23/23 11:51 05/23/23 13:44 General: Alert, In no apparent distress, Oriented x3 HEENT: Mucous membr. moist/pink Neck: Supple, JVD not distended Respiratory: Clear to auscultation bilaterally, Normal air movement Cardiovascular: No edema, Regular rate/rhythm, Normal S1 S2 Gastrointestinal: Normal bowel sounds, Soft and benign, Non-distended, No te nderness Musculoskeletal: No swelling Integumentary: No rashes, No cyanosis Neurological: Normal speech, Normal strength at 5/5 x4 extr, Cranial nerves 3-12 intact Laboratory Data at Discharge: WBC 7.50 thou/uL (4.3-10.9) 05/21/23 02:29 Hgb 12.3 g/dL (13.6-17.9) L 05/21/23 02:29 Hct 34.4 % (39.6-49.0) L 05/21/23 02:29 Plt Count 166 thou/uL (152-406) 05/21/23 02:29 PT 11.1 SECONDS (9.5-12.5) 05/17/23 04:35 INR 1.01 05/17/23 04:35 Sodium 137 mEq/L (136-145) 05/22/23 02:44 Potassium 4.3 mEq/L (3.5-5.1) 05/22/23 02:44 BUN 15 mg/dL (7-18) 05/22/23 02:44 Creatinine 0.91 mg/dL (0.70-1.30) 05/22/23 02:44 Glucose 109 mg/dL (74-106) H 05/22/23 02:44 Uric Acid 5.0 mg/dL (3.5-7.2) 05/19/23 02:16 Phosphorus 2.5 mg/dL (2.5-4.9) 05/22/23 02:44 Magnesium 2.1 mg/dL (1.6-2.4) 05/22/23 02:44 Total Bilirubin 0.4 mg/dL (0.2-1.0) 05/19/23 02:16 AST 19 U/L (15-37) 05/19/23 02:16 ALT 46 U/L (16-61) 05/19/23 02:16 Alkaline Phosphatase 47 U/L (45-117) 05/19/23 02:16 Triglycerides 57 mg/dL (<150) 05/18/23 07:32 Cholesterol 146 mg/dL (<200) 05/18/23 07:32 HDL Cholesterol 52 mg/dL (40-60) 05/18/23 07:32 Cholesterol/HDL Ratio 2.81 05/18/23 07:32 Home Medications: Hydrocodone Bit/Acetaminophen [Hydrocodon-Acetaminophen 5-325] 1 tab PO Q6H PRN 05/17/23 Atorvastatin Calcium [Lipitor*] 20 mg PO BEDTIME 05/18/23 Clopidogrel Bisulfate [Plavix*] 75 mg PO DAILY 05/18/23 Cyclobenzaprine [Flexeril*] 10 mg PO BEDTIME 05/18/23 Duloxetine HCl [Cymbalta] 60 mg PO DAILY 05/18/23 Losartan Potassium [Cozaar] 100 mg PO DAILY 05/18/23 Quetiapine Fumarate [Seroquel Xr] 400 mg PO BID 05/18/23 Aspirin Chewable [Aspirin Chewable*] 81 mg PO DAILY #30 tab.chew 05/23/23 Meclizine HCl 25 mg PO TID PRN #30 tab 05/23/23 New Medications: Aspirin Chewable [Aspirin Chewable*] 81 mg PO DAILY #30 tab.chew Meclizine HCl 25 mg PO TID PRN #30 tab PRN Reason: Dizziness Physician Discharge Instructions: Patient presented with chest pain, syncope. He was found to be hypotensive with an MARÍA ELENA. He had improvement / resolution with IV fluids. Nephrology and Cardiology were consulted. Given his presentation of symptoms, his MARÍA ELENA was likely secondary to dehydration and complicated by ibuprofin and lisinopril use. Patient is to follow up with Dr. Jones as outpatient for stress test and echo and was deemed stable for discharge home. Patients hospitalization was prolonged due to continuing to feel dizzy with little to no improvement. Given his symptoms and events that let to hospitalization, it is possible he suffered a concussion after his fall. Medications: New: Changes: Stop: Follow up: PCP 3-5 days Cardiology as previously scheduled Nephrology in a few weeks Diet: AHA Activity: Ad venecia Followup: Joe Guaman MD [Primary Care Provider] - Time spent managing pt's care (in minutes): 33
[2023-05-23 16:22] VITALS: BP 154/79; TEMP 98.5
--- NOTE | 2023-05-23 19:47 | P.PN ---
Date of Service: 05/23/23 Vital Signs Temp Pulse Resp BP Pulse Ox 98.5 F 81 16 154/79 H 95 05/23/23 16:00 05/23/23 16:00 05/23/23 16:00 05/23/23 16:00 05/23/23 16:00 Assessment/ Plan: Nephrology No dyspnea No chest pain He was able to walk around the floor today No acute events overnight Vitals, medications, blood work and imaging reviewed in the chart. General: Oriented x3, Cooperative HEENT: Normocephalic Neck: Supple Respiratory: Clear to auscultation bilaterally Cardiovascular: No edema, Regular rate/rhythm Gastrointestinal: Soft and benign, Non-distended Musculoskeletal: No clubbing, No contractures Integumentary: No rashes, No cyanosis Neurological: Normal speech Laboratory Data (last 24 hrs) 05/17/23 05/17/23 05/17/23 04:35 04:35 04:35 WBC 12.60 H Hgb 13.9 Hct 39.0 L Plt Count 193 PT 11.1 INR 1.01 Sodium 138 Potassium 3.4 L BUN 26 H Creatinine 2.21 H Glucose 201 H Magnesium 1.9 Total Bilirubin 0.8 AST 30 ALT 62 H Alkaline Phosphatase 60 Imagings Data: [id number] EXAM DESCRIPTION: RAD - Chest Single View - 05/17/2023 4:56 am CLINICAL HISTORY: 68 years Male, CHEST PAIN COMPARISON: Chest x-ray and chest CT performed on 02/09/2023 TECHNIQUE: Single portable x-ray view of the chest performed on 05/17/2023 at 4:52 AM FINDINGS: The lungs are well expanded and are clear. There is no evidence of a pneumothorax. The cardiac silhouette is normal in size and configuration. The mediastinal contours are normal. No acute osseous abnormality is identified. No acute soft tissue abnormalities are seen. Lines and tubes: None. Free air: None IMPRESSION: No evidence of acute intrathoracic disease. [id number] EXAM DESCRIPTION: CT - Abdomen Pelvis Wo Contrast - 05/17/2023 12:38 pm CLINICAL HISTORY: Abdominal pain COMPARISON: February 2023 TECHNIQUE: Computed axial tomography of the abdomen and pelvis was obtained. IV and oral contrast were not requested. All CT scans are performed using dose optimization technique as appropriate and may include automated exposure control or mA/KV adjustment according to patient size. FINDINGS: The evaluation of solid organs, vessels and bowel is limited secondary to the lack of contrast administration. The liver, spleen, pancreas, and kidneys appear grossly normal Very small adrenal nodules likely benign. Mild gastric distention. There is no evidence of diverticulitis. Spondylosis lumbar spine resulting in spinal stenosis. Postsurgical changes right inguinal hernia repair. Small left inguinal hernia contains fat. Small umbilical hernia IMPRESSION: Mild gastric distention Conclusions/Impression: Stage II MARÍA ELENA in the setting of hypotension and hypovolemia complicated by ibuprofen and lisinopril CKD II with Proteinuria -No NSAIDs Hypokalemia -Replete prn Hypophosphatemia -Replete prn HTN with CKD -Continue Lisinopril Hyperglycemia A1C 5.3 -No sugar diet Acute Pain due to fall -[place] & Tylenol prn -No NSAIDs -Encourage OOB as tolerated Hospitalist & cardiology notes reviewed
== END 2023-05-23 16:34 | disposition home or self-care (01) | DRG 684 ==
LOC: ER 04:27 → ERHOLD 08:42 → 2ND 10:41 → OBSVTOIN 05-19 17:30
PROVIDERS: ADMIT Hospitalist; ATTEND Internal Medicine
DX: N17.9 Acute kidney failure, unspecified (principal); E86.0 Dehydration; G89.29 Other chronic pain; M54.9 Dorsalgia, unspecified; E78.00 Pure hypercholesterolemia, unspecified; E87.6 Hypokalemia; E83.39 Other disorders of phosphorus metabolism; F12.10 Cannabis abuse, uncomplicated; I12.9 Hypertensive chronic kidney disease with stage 1 through stage 4 chronic kidney disease, or unspecified chronic kidney disease; N18.2 Chronic kidney disease, stage 2 (mild); D72.829 Elevated white blood cell count, unspecified; F03.90 Unspecified dementia, unspecified severity, without behavioral disturbance, psychotic disturbance, mood disturbance, and anxiety; R42 Dizziness and giddiness; R73.9 Hyperglycemia, unspecified; R07.9 Chest pain, unspecified; Z79.82 Long term (current) use of aspirin; Z71.51 Drug abuse counseling and surveillance of drug abuser; Z79.899 Other long term (current) drug therapy; W18.39XA Other fall on same level, initial encounter; Y92.019 Unspecified place in single-family (private) house as the place of occurrence of the external cause; Y93.9 Activity, unspecified
CPT/HCPCS: 36415; 70450; 70470; 70553; 71045; 72125; 72170; 74150; 74176; 80048; 80053; 80061; 80069; 80076; 80307; 81001; 82043; 82077; 82570; 83036; 83735; 83880; 84100; 84156; 84439; 84443; 84484; 84550; 85025; 85610; 93005; 96361; 96374; 96375; 97112; 97116; 97161; 97530; 99285; A9577; G0378; J0360; J1650; J2405; J3010; J7030; J8597; Q0169; Q9967

== ENCOUNTER 2024-06-04 02:15 | Emergency (ER) | payer OTHER ==
[2024-06-04] MEDS ORDERED: LORazepam 2 MG/ML VIAL ONE (02:41)
[2024-06-04] MEDS ORDERED: NA CHLORIDE 0.9% 1,000 ML ONE (02:41)
[2024-06-04 03:55] LABS: Barbiturates NEGATIVE (NEGATIVE); Benzodiazepines NEGATIVE (NEGATIVE); Cocaine NEGATIVE (NEGATIVE); METHAMPHETAM NEGATIVE (NEGATIVE); Methadone NEGATIVE (NEGATIVE); Opiates NEGATIVE (NEGATIVE); Phencyclidine NEGATIVE (NEGATIVE); THC Cannibis POSITIVE (NEGATIVE)
[2024-06-04] MEDS ORDERED: DIPHENHYDRAMINE 50 MG/ML VIAL ONE (03:56)
[2024-06-04 03:59] LABS: Specific Gravity 1.025 (1.005-1.030); Sqamous Epithelial <5 /HPF (None Seen); Urine Bacteria None Seen /HPF (<20); Urine Bilirubin NEGATIVE (Negative); Urine Blood Negative (Negative); Urine Clarity Clear (Clear); Urine Color Light-Yellow (Yellow); Urine Culture Reflex Order NOT NEEDED; Urine Glucose NEGATIVE (Negative); Urine Ketones NEGATIVE (Negative); Urine Micro Reflex YN NO BILL MICROSCOPIC; Urine Nitrite NEGATIVE (Negative); Urine Protein NEGATIVE (Negative); Urine RBC <5 /HPF (None Seen); Urine Urobilinogen Normal (Normal); Urine WBC <5 /HPF (<5)
[2024-06-04 04:29] LABS: Absolute Eosinophils 0.1 K/uL (0-0.5); Absolute Lymphocytes (CBC) 4.4 K/uL (0.7-4.9); Absolute Monocytes 1.1 K/uL (0.1-1.3); Absolute Neutrophil 6.5 K/uL (1.8-8.0); Basophils % 0.3 % (0-1.3); Eosinophils % 0.7 % (0-4.4); Hematocrit 39.1 % (39.6-49.0); Hemoglobin 13.7 g/dL (13.6-17.9); Lymphocytes % 36.3 % (15.3-44.8); MCH 33.5 pg (27.0-35.0); MCV 95.6 fL (80-100); MPV 7.8 fL (7.6-11.3); Monocytes % 8.8 % (3.3-12.3); Neutrophils % 53.9 % (41.7-73.7); Nucleated Red Blood Cells % 0.2 % (0-0); Platelets 243 thou/uL (152-406); RBC Red Blood Cell Count 4.09 M/uL (4.33-5.43); Red Cell Distribution Width 13.3 % (12.1-15.2)
[2024-06-04 04:30] LABS: PT Prothrombin Time 9.3 SECONDS (9.4-12.5); Protime INR 0.83
[2024-06-04 04:45] LABS: ALT/SGPT 71 U/L (16-61); AST/SGOT 31 U/L (15-37); Albumin 3.4 g/dL (3.4-5.0); Alkaline Phosphatase 66 U/L (45-117); Anion Gap 9.3 mEq/L (5.0-15.0); BUN Blood Urea Nitrogen 27 mg/dL (7-18); Bicarbonate 27 mEq/L (21-32); Bilirubin Total 0.4 mg/dL (0.2-1.0); Globulin 3.4 g/dL (2.3-3.5); Glomerular Filtration Rate 93 ml/min (=/>90); Glucose Level 117 mg/dL (74-106); Lipase 56 U/L (13-75); Magnesium 2.3 mg/dL (1.6-2.4); NT PRO-BNP 598 pg/mL (<125); Potassium 4.3 mEq/L (3.5-5.1); Protein, Total 6.8 g/dL (6.4-8.2); Sodium Level 137 mEq/L (136-145); Troponin High Sensitivity 7.1 pg/mL (<58.9)
[2024-06-04 04:47] LABS: Bilirubin Direct < 0.2 mg/dL (0-0.2); Bilirubin Indirect, Calculated 0.2 mg/dL (0.2-0.8)
[2024-06-04] MEDS ORDERED: ONDANSETRON 4 MG/2 ML VIAL ONE (05:49)
[2024-06-04] MEDS ORDERED: MORPHINE 4 MG/ML SYR ONE (05:49)
[2024-06-04] MEDS ORDERED: HYDROCODONE/APAP 10/325 TAB ONE (06:11)
[2024-06-04 06:39] LABS: SARS-CoV-2 Antigen CONTROL BLUE LINE VIS/BG OK; SARS-CoV-2 Antigen Rapid Res Negative (Negative)
--- NOTE | 2024-06-04 07:07 | EDPHYS ---
Physician Documentation [facility] Name: Lanre Clifton Jr Age: 69 yrs Sex: Male : 1955 Arrival Date: 06/04/2024 Time: 02:15 Bed 5 Private MD: ED Physician Scot Daley HPI: 06/04 02:30 This 69 yrs old Male presents to ER via Ambulatory with complaints of Anxiety, Doesn't sp4 Feel Right, PT FEELS LIKE SOMETHING IS CRAWLING ALL OVER HIM, Other. 07:08 Patient is a very pleasant 69-year-old male with history of chronic back pain, sp4 hypercholesterolemia, hypertension and dementia. Reports smoking some marijuana. Patient is presenting with acute anxiety and feeling of crawling bugs on him. Patient also complains of abdominal pain, back pain, and generalized discomfort. Historical: - Allergies: 02:28 No Known Allergies; ss - PMHx: 02:28 chronic back pain; Hypercholesterolemia; Hypertensive disorder; Dementia; ss - Immunization history:: Client reports having NOT received the Covid vaccine. - Infectious Disease History:: Denies. - Social history:: Smoking status: Patient denies any tobacco usage or history of. - Family history:: not pertinent. ROS: 07:08 Constitutional: Negative for fever, chills, and weight loss, positive abdominal pain, sp4 back pain, generalized discomfort, positive anxiety, positive sensation of crawling bugs 07:08 All other systems are negative, Exam: 06:13 Constitutional: This is a well developed, well nourished patient who is awake, alert, sp4 and in no acute distress. Head/Face: Normocephalic, atraumatic. Eyes: Pupils equal round and reactive to light, extra-ocular motions intact. Lids and lashes normal. Conjunctiva and sclera are not injected. Cornea within normal limits. Periorbital areas with no swelling, redness, or edema. ENT: Nares patent. No nasal discharge, no septal abnormalities noted. Tympanic membranes are normal and external auditory canals are clear. Oropharynx with no redness, swelling, or masses, exudates, or evidence of obstruction, uvula midline. Mucous membranes moist. Neck: Trachea midline, no thyromegaly or masses palpated, and no cervical lymphadenopathy. Supple, full range of motion without nuchal rigidity, or vertebral point tenderness. Chest/axilla: Normal chest wall appearance and motion. Nontender with no deformity. No lesions are appreciated. Cardiovascular: Regular rate and rhythm with a normal S1 and S2. No gallops, murmurs, or rubs. Normal PMI, no JVD. No pulse deficits. Respiratory: Lungs have equal breath sounds bilaterally, clear to auscultation and percussion. No rales, rhonchi or wheezes noted. No increased work of breathing, no retractions or nasal flaring. Abdomen/GI: Soft, with normal bowel sounds. No distension or tympany. No guarding or rebound. No evidence of tenderness throughout. Back: No spinal tenderness. No costovertebral tenderness. Skin: Warm, dry with normal turgor. Normal color with no rashes, no lesions, and no evidence of cellulitis. MS/ Extremity: Pulses equal, no cyanosis. Neurovascular intact. Full, normal range of motion. Neuro: Awake and alert, GCS 15, oriented to person, place, time, and situation. Cranial nerves II-XII grossly intact. Motor strength 5/5 in all extremities. Sensory grossly intact. Psych: Awake, alert, with orientation to person, place and time. Behavior, mood, and affect are within normal limits 06:13 ECG was reviewed by the Attending Physician. EKG at 0 246 sinus rhythm normal EKG, rate 63 Vital Signs: 02:27 BP 124 / 81; Pulse 71; Resp 16; Temp 97.8(TE); Pulse Ox 100% on R/A; ss 04:55 BP 127 / 85; Pulse 81; Resp 18; Temp 98.5; Pulse Ox 97% ; Pain 8/10; bm8 06:01 BP 136 / 75; Pulse 88; Resp 20; Temp 98.5; Pulse Ox 98% ; Pain 4/10; bm8 07:10 BP 116 / 89; Pulse 62; Resp 16; Temp 98.5; Pulse Ox 95% on R/A; Pain 0/10; rs5 04:55 Pain Scale: Adult bm8 06:01 Pain Scale: Adult bm8 07:10 Pain Scale: Adult rs5 [place] Coma Score: 04:55 Eye Response: spontaneous(4). Motor Response: obeys commands(6). Verbal Response: bm8 oriented(5). Total: 15. 06:01 Eye Response: spontaneous(4). Motor Response: obeys commands(6). Verbal Response: bm8 oriented(5). Total: 15. 06:01 Eye Response: spontaneous(4). Motor Response: obeys commands(6). Verbal Response: bm8 oriented(5). Total: 15. 06:50 Eye Response: spontaneous(4). Motor Response: obeys commands(6). Verbal Response: bm8 oriented(5). Total: 15. MDM: 02:35 Patient medically screened. sp4 05:45 ED course: EXAMINATION: XR CHEST 1 VIEW INDICATION: Male, 69 years old, ABDOMINAL sp4 DISTENTION TECHNIQUE: 1 view COMPARISON(S): Same-day CT chest/abdomen/pelvis FINDINGS: SUPPORT DEVICES: Overlying leads. LUNGS/PLEURA: No consolidation, pleural effusion, or pneumothorax. HEART/MEDIASTINUM: Normal size and configuration. OTHER: No acute osseous findings. IMPRESSION: No acute cardiopulmonary findings. . 05:46 ED course: IMPRESSION: 1. No acute findings within the chest, abdomen, or pelvis. 2. sp4 Enlarged 3.8 cm left axillary lymph node of unknown chronicity. No other enlarged lymph nodes identified. Correlate with any available prior imaging of the chest; if none are available, imaging follow-up required if tissue sampling is not performed. 3. Chronic and incidental findings above. . 06:01 ED course: EXAMINATION: XR CHEST 1 VIEW INDICATION: Male, 69 years old, ABDOMINAL sp4 DISTENTION TECHNIQUE: 1 view COMPARISON(S): Same-day CT chest/abdomen/pelvis FINDINGS: SUPPORT DEVICES: Overlying leads. LUNGS/PLEURA: No consolidation, pleural effusion, or pneumothorax. HEART/MEDIASTINUM: Normal size and configuration. OTHER: No acute osseous findings. IMPRESSION: No acute cardiopulmonary findings.. ED course: CT - IMPRESSION: 1. No acute findings within the chest, abdomen, or pelvis. 2. Enlarged 3.8 cm left axillary lymph node of unknown chronicity. No other enlarged lymph nodes identified. Correlate with any available prior imaging of the chest; if none are available, imaging follow-up required if tissue sampling is not performed. 3. Chronic and incidental findings above. Electronically signed by: Wei Sanchez MD 06/04/2024. 07:08 Differential Diagnosis altered mental status, sepsis, flu. Data reviewed: vital signs, sp4 nurses notes, lab test result(s), EKG, radiologic studies, CT scan. Consideration of Admission/Observation Escalation of care including admission/observation considered. 06/04 02:34 Order name: Basic Metabolic Panel; Complete Time: 05:44 [facility] 06/04 02:34 Order name: CBC with Diff; Complete Time: 05:44 [facility] 06/04 02:34 Order name: LFT's; Complete Time: 05:44 [facility] 06/04 02:34 Order name: Magnesium; Complete Time: 05:44 06/04 02:34 Order name: NT PRO-BNP; Complete Time: 05:44 06/04 02:34 Order name: PT-INR; Complete Time: 05:44 [facility] 06/04 02:34 Order name: Troponin HS; Complete Time: 05:44 [facility] 06/04 02:35 Order name: Lipase; Complete Time: 05:44 [facility] 06/04 02:35 Order name: TSH; Complete Time: 05:44 [facility] 06/04 02:35 Order name: Urine Drug Screen; Complete Time: 04:01 06/04 02:35 Order name: Urinalysis W/Microscopic; Complete Time: 04:01 06/04 02:35 Order name: T4 Free; Complete Time: 05:44 [facility] 06/04 06:07 Order name: SARS RAPID; Complete Time: 06:57 [facility] 06/04 06:07 Order name: Influenza Screen (a \T\ B); Complete Time: 06:57 [facility] 06/04 02:34 Order name: XRAY Chest (1 view) [facility] 06/04 02:35 Order name: CT Chest Abdomen Pelvis W/O Contrast [facility] 06/04 02:34 Order name: EKG; Complete Time: 02:35 06/04 02:34 Order name: Cardiac monitoring; Complete Time: 03:05 06/04 02:34 Order name: EKG - Nurse/Tech; Complete Time: 03:05 [facility] 06/04 02:34 Order name: IV Saline Lock; Complete Time: 03:05 [facility] 06/04 02:34 Order name: Labs collected and sent; Complete Time: 03:05 [facility] 06/04 02:34 Order name: O2 Per Protocol; Complete Time: 03:05 [facility] 06/04 02:34 Order name: O2 Sat Monitoring; Complete Time: 03:05 sp4 06/04 03:48 Order name: Misc. Order: RECOLLECT ALL LABS; Complete Time: 04:27 rv1 EC:13 Rate is 63 beats/min. Rhythm is regular, Normal Sinus Rhythm. QRS [place] is Normal. [place] sp4 interval is normal. QRS interval is normal. QT interval is normal. No Q waves. T waves are Normal. No ST changes noted. Clinical impression: Normal ECG. Interpreted by me. Reviewed by me. Administered Medications: 03:05 Drug: Ativan IVP 2 mg IVP once Route: IVP; Site: right antecubital; bm8 04:27 Follow up: Response: No adverse reaction al5 03:05 Drug: NS 0.9% IV 1000 ml IV at 125 ml/hr continuous Route: IV; Rate: 125 ml/hr; Site: bm8 right antecubital; 06:16 Follow up: Response: No adverse reaction; IV Status: Completed infusion; IV Intake: bm8 1000ml 04:05 Drug: diphenhydrAMINE IVP 25 mg IVP once Route: IVP; Site: right antecubital; al5 05:24 Follow up: Response: No adverse reaction bm8 06:17 Follow up: Response: No adverse reaction bm8 05:50 Drug: Ondansetron IVP 4 mg IVP once; over 2 minutes Route: IVP; Site: right antecubital;bm8 06:17 Follow up: Response: No adverse reaction bm8 06:04 Drug: morphine IVP or IV 4 mg IVP once over 4 mins Route: IVP; Infused Over: 4 mins; bm8 Site: right antecubital; 06:17 Follow up: Response: No adverse reaction bm8 06:15 Drug: [place] PO 10 mg-325 mg 1 tabs PO once Route: PO; bm8 06:17 Follow up: Response: No adverse reaction bm8 Disposition Summary: 06/04/24 07:07 Discharge Ordered Notes: Location: Home sp4 Problem: new sp4 Symptoms: have improved sp4 Condition: Stable sp4 Diagnosis - Acute anxiety attack sp4 Followup: sp4 - With: Private Physician - When: 7 - 10 days - Reason: Recheck today's complaints Discharge Instructions: - Discharge Summary Sheet sp4 - Managing Anxiety, Adult sp4 Forms: - Patient Portal Instructions sp4 Prescriptions: - Ativan 1 mg Oral tablet - take 1 tablet ORAL route once daily As needed PRN anxiety; 20 tablet; Refills: sp4 0, Product Selection Permitted Signatures: Dispatcher [employer] EDMS Willow Quinn, RN RN ss Cat Patterson rv1 Scot Daley MD MD sp4 Graham Gaytan, RN RN bm8 Amber Grimaldo RN RN al5 Corrections: (The following items were deleted from the chart) 02:35 02:35 BASIC METABOLIC PANEL+C.LAB.BRZ ordered. EDMS EDMS 02:35 02:35 CBC+H.LAB.BRZ ordered. EDMS EDMS 02:35 02:35 HEPATIC FUNCTION+C.LAB.BRZ ordered. EDMS EDMS 02:35 02:35 MAGNESIUM+C.LAB.BRZ ordered. EDMS EDMS 02:35 02:35 PROBNP+C.LAB.BRZ ordered. EDMS EDMS 02:35 02:35 PROTIME (+INR)+COAG.LAB.BRZ ordered. EDMS EDMS 02:35 02:35 Troponin High Sensitivity+C.LAB.BRZ ordered. EDMS EDMS 02:35 02:35 Chest Single View+RAD.RAD.BRZ ordered. EDMS EDMS 02:35 02:35 Chest Abdomen Pelvis Wo Con+CT.RAD.BRZ ordered. EDMS EDMS 02:36 02:36 URINE DRUG SCREEN+UC.LAB.BRZ ordered. EDMS EDMS 07:09 07:08 Patient is a very pleasant 69-year-old male with history of chronic back pain, sp4 hypercholesterolemia, hypertension and dementia. Reports smoking some marijuana. Patient is presenting with acute anxiety and feeling of crawling bugs on him. . sp4
--- NOTE | 2024-06-04 07:07 | ER ---
Nurse's Notes [facility] Name: Lanre Clifton Jr Age: 69 yrs Sex: Male : 1955 Arrival Date: 06/04/2024 Time: 02:15 Bed 5 Private MD: Diagnosis: Acute anxiety attack Presentation: 06/04 02:27 Chief complaint: Spouse and/or significant other states: "the past two nights he keeps ss waking up a little confused and saying that he feels like ants are crawling on him." HX of dementia. Pt has an appointment with Dr. Chowdhury, neurologist at 0845 this morning. Coronavirus screen: Client denies travel out of the [place] in the last 14 days. Ebola Screen: Patient denies exposure to infectious person. Patient denies travel to an Ebola-affected area in the 21 days before illness onset. Initial Sepsis Screen: Does the patient meet any 2 criteria? No. Patient's initial sepsis screen is negative. Does the patient have a suspected source of infection? No. Patient's initial sepsis screen is negative. Risk Assessment: Do you want to hurt yourself or someone else? Patient reports no desire to harm self or others. Onset of symptoms is unknown. 02:27 Method Of Arrival: Ambulatory ss 02:27 Acuity: INGRID 3 ss Historical: - Allergies: 02:28 No Known Allergies; ss - PMHx: 02:28 chronic back pain; Hypercholesterolemia; Hypertensive disorder; Dementia; ss - Immunization history:: Client reports having NOT received the Covid vaccine. - Infectious Disease History:: Denies. - Social history:: Smoking status: Patient denies any tobacco usage or history of. - Family history:: not pertinent. Screenin:57 [facility] ED Fall Risk Assessment (Adult) History of falling in the last 3 months, al5 including since admission No falls in past 3 months (0 pts) Confusion or Disorientation No (0 pts) Intoxicated or Sedated No (0 pts) Impaired Gait No (0 pts) Mobility Assist Device Used No (0 pt) Altered Elimination No (0 pt) Score/Fall Risk Level 0 - 2 = Low Risk Oriented to surroundings, Maintained a safe environment, Hourly rounding (assess needs \\T\\ fall precautionary measures) done. Abuse screen: Denies threats or abuse. Denies injuries from another. Nutritional screening: No deficits noted. Tuberculosis screening: No symptoms or risk factors identified. Assessment: 02:51 General: Appears in no apparent distress. Behavior is cooperative, anxious, restless. al5 Pain: Complains of pain in generalized, from "his head to his toes". Neuro: Level of Consciousness is awake, alert, obeys commands, Oriented to person, place, time, situation. Cardiovascular: Patient's skin is warm and dry. Cardiovascular: Reports chest pain. Respiratory: Airway is patent Respiratory effort is even, unlabored, Respiratory pattern is regular, symmetrical. Respiratory: Reports shortness of breath. GI: Reports lower abdominal pain, upper abdominal pain. : No signs and/or symptoms were reported regarding the genitourinary system. EENT: No signs and/or symptoms were reported regarding the EENT system. Derm: Skin is intact, Skin is pink, warm \\T\\ dry. normal. Musculoskeletal: Reports pain all over. 04:55 Reassessment: Patient and/or family updated on plan of care and expected duration. Pain bm8 level reassessed. Patient is alert, oriented x 3, equal unlabored respirations, skin warm/dry/pink. General: Appears distressed, uncomfortable, Behavior is cooperative, anxious. Pain: Complains of pain in low back area, mid back area, left mid back and right low back Pain does not radiate. Pain currently is 8 out of 10 on a pain scale. Quality of pain is described as sharp, shooting, Is continuous. Neuro: No deficits noted. Level of Consciousness is awake, alert, obeys commands, Oriented to person, place, time, situation. 06:01 Reassessment: Patient appears in no apparent distress at this time. Patient and/or bm8 family updated on plan of care and expected duration. Pain level reassessed. Patient is alert, oriented x 3, equal unlabored respirations, skin warm/dry/pink. Patient states feeling better. 06:50 Reassessment: Patient appears in no apparent distress at this time. Patient and/or bm8 family updated on plan of care and expected duration. Pain level reassessed. Patient is alert, oriented x 3, equal unlabored respirations, skin warm/dry/pink. pt is resting with eyes closed breathing is even unlabored at this time with symmetrical rise and fall of chest. at bedside stated " this is the best sleep he has had in three days." Patient states feeling better. Patient states symptoms have improved. 07:18 Reassessment: No changes from previously documented assessment. rs5 Vital Signs: 02:27 BP 124 / 81; Pulse 71; Resp 16; Temp 97.8(TE); Pulse Ox 100% on R/A; ss 04:55 BP 127 / 85; Pulse 81; Resp 18; Temp 98.5; Pulse Ox 97% ; Pain 8/10; bm8 06:01 BP 136 / 75; Pulse 88; Resp 20; Temp 98.5; Pulse Ox 98% ; Pain 4/10; bm8 07:10 BP 116 / 89; Pulse 62; Resp 16; Temp 98.5; Pulse Ox 95% on R/A; Pain 0/10; rs5 04:55 Pain Scale: Adult bm8 06:01 Pain Scale: Adult bm8 07:10 Pain Scale: Adult rs5 [place] Coma Score: 04:55 Eye Response: spontaneous(4). Motor Response: obeys commands(6). Verbal Response: bm8 oriented(5). Total: 15. 06:01 Eye Response: spontaneous(4). Motor Response: obeys commands(6). Verbal Response: bm8 oriented(5). Total: 15. 06:01 Eye Response: spontaneous(4). Motor Response: obeys commands(6). Verbal Response: bm8 oriented(5). Total: 15. 06:50 Eye Response: spontaneous(4). Motor Response: obeys commands(6). Verbal Response: bm8 oriented(5). Total: 15. ED Course: 02:16 Patient arrived in ED. jj6 02:28 Triage completed. ss 02:28 Arm band placed on right wrist. ss 02:30 Scot Daley MD is Attending Physician. sp4 02:57 Patient has correct armband on for positive identification. Placed in gown. Bed in low al5 position. Call light in reach. Side rails up X2. Provided Education on: processes and procedures. 02:58 No provider procedures requiring assistance completed. al5 03:03 XRAY Chest (1 view) In Process Unspecified. EDMS 03:04 Graham Gaytan, RN is Primary Nurse. bm8 03:04 Client placed on continuous cardiac and pulse oximetry monitoring. NIBP monitoring bm8 applied. concentrator operator on. Pulse ox on. NIBP on. Door closed. Noise minimized. Visitors limited. Pillow given. Verbal reassurance given. Head of bed. 03:04 Initial lab(s) drawn, by me, sent to lab. Urine collected: clean catch specimen, clear, bm8 EKG done, by ED staff, reviewed by Scot Daley MD. Inserted saline lock: 18 gauge in right antecubital area, using aseptic technique. Blood collected. Flushed with 10 mL NS. Patient maintains SpO2 saturation greater than 95% on room air. 03:25 CT Chest Abdomen Pelvis W/O Contrast In Process Unspecified. EDMS 06:15 Influenza Screen (a \\T\\ B) Sent. bm8 06:15 SARS RAPID Sent. bm8 06:16 COVID swab sent to lab. Flu and/or RSV swab sent to lab. bm8 06:50 Provided Education on: post er care. bm8 07:05 Primary Nurse role handed off by Graham Gaytan, RN iw 07:05 Amber Jeffries, RN is Primary Nurse. iw 07:19 IV discontinued, intact, bleeding controlled, No redness/swelling at site. Pressure rs5 dressing applied. Administered Medications: 03:05 Drug: Ativan IVP 2 mg IVP once Route: IVP; Site: right antecubital; bm8 04:27 Follow up: Response: No adverse reaction al5 03:05 Drug: NS 0.9% IV 1000 ml IV at 125 ml/hr continuous Route: IV; Rate: 125 ml/hr; Site: bm8 right antecubital; 06:16 Follow up: Response: No adverse reaction; IV Status: Completed infusion; IV Intake: bm8 1000ml 04:05 Drug: diphenhydrAMINE IVP 25 mg IVP once Route: IVP; Site: right antecubital; al5 05:24 Follow up: Response: No adverse reaction bm8 06:17 Follow up: Response: No adverse reaction bm8 05:50 Drug: Ondansetron IVP 4 mg IVP once; over 2 minutes Route: IVP; Site: right antecubital;bm8 06:17 Follow up: Response: No adverse reaction bm8 06:04 Drug: morphine IVP or IV 4 mg IVP once over 4 mins Route: IVP; Infused Over: 4 mins; bm8 Site: right antecubital; 06:17 Follow up: Response: No adverse reaction bm8 06:15 Drug: [place] PO 10 mg-325 mg 1 tabs PO once Route: PO; bm8 06:17 Follow up: Response: No adverse reaction bm8 Medication: 02:57 VIS not applicable for this client. al5 Intake: 06:16 IV: 1000ml; Total: 1000ml. bm8 Outcome: 07:07 Discharge ordered by . sp4 07:19 Discharged to home ambulatory, with family, rs5 07:19 Condition: stable 07:19 Discharge instructions given to patient, family, Instructed on discharge instructions, follow up and referral plans. medication usage, Demonstrated understanding of instructions, follow-up care, medications, Prescriptions given X 1, 07:20 Patient left the ED. rs5 Signatures: Dispatcher [employer] EDMS Amber Jeffries, JERAD MARS Willow Quinn RN RN Joi Cates6 Mickey Douglas RN RN rs5 Scot Daley MD MD sp4 Graham Gaytan RN JERAD bm8 Amber Grimaldo RN JERAD al5 Corrections: (The following items were deleted from the chart) 06:03 06:01 BP 148 / 65; Pulse 88bpm; Resp 20bpm; Pulse Ox 98%; Temp 98.5F; Pain 4/10, Adult; bm8 bm8 07:19 06:50 BP 116 / 89; Pulse 62bpm; Resp 16bpm; Pulse Ox 95% RA; Temp 98.5F; Pain 0/10, rs5 Adult; bm8
[2024-06-04 08:09] VITALS: TEMP 98.5
[2024-06-04 08:13] VITALS: BP 116/89; O2SAT 95
--- NOTE | 2024-06-04 09:34 | RAD REPORT ---
EXAMINATION: XR CHEST 1 VIEW INDICATION: Male, 69 years old, ABDOMINAL DISTENTION TECHNIQUE: 1 view COMPARISON(S): Same-day CT chest/abdomen/pelvis FINDINGS: SUPPORT DEVICES: Overlying leads. LUNGS/PLEURA: No consolidation, pleural effusion, or pneumothorax. HEART/MEDIASTINUM: Normal size and configuration. OTHER: No acute osseous findings. IMPRESSION: No acute cardiopulmonary findings. Electronically signed by: Wei Sanchez MD 06/04/2024 03:49 AM CDT RP Due to temporary technical issues with PACS / Fluency reporting system, reports are being signed by the in-house radiologist without review as a courtesy to ensure prompt reporting. The interpreting radiologist is fully responsible for the content of the report. Transcribed Date/Time: 06/04/2024 9:33 AM
--- NOTE | 2024-06-04 09:37 | RAD REPORT ---
EXAMINATION: CT CHESTABDOMEN PELVIS WITHOUT IV CONTRAST INDICATION: Male, 69 years old, ABDOMINAL DISTENTION COMPARISON(S): CT abdomen/pelvis 05/17/2023, CT chest/abdomen/pelvis 02/09/2023 (report only available at the time of dictation) TECHNIQUE: CT acquisition of the chest, abdomen and pelvis without contrast. Coronal and sagittal ref ormatted images provided. This exam was performed according to departmental dose-optimization program which includes automated exposure control, adjustment of the mA and/or kV according to patient size, and/or use of iterative reconstruction tech nique. FINDINGS: SUPPORTIVE DEVICES: None. LOWER NECK: Unremarkable. Lack of intravenous contrast limits evaluation of the abdominal and pelvic viscera and vascular struc tures. CHEST: Mediastinum/piero: Unremarkable appearance of the great vessels. No evidence of mediastinal or hilar a denopathy. Unremarkable esophagus. Heart: Normal size. No pericardial thickening or effusion. Mild coronary artery calcifications. Lungs: No pulmonary consolidation. No suspicious pulmonary nodule. Central airways are clear. Pleural Space: No pleural effusion or pneumothorax. ABDOMEN AND PELVIS: Liver: Unremarkable. Gallbladder and bile ducts: Unremarkable. Pancreas: Moderate atrophy. Spleen: Unremarkable. Adrenal glands: Thickening without discrete nodule. Kidneys and ureters: No evidence of stone or obstruction. Bladder: Nondistended without evident abnormality. Reproductive organs: Unremarkable as visualized. GI tract: Normal caliber without wall thickening. No evidence of appendicitis. Distal colonic diverti culosis without diverticulitis. Peritoneum: No evidence of ascites, fluid collection, or free air. Vessels: Mild atherosclerosis. Lymph nodes: No evident adenopathy. Abdominal wall: Right inguinal mesh repair. MUSCULOSKELETAL: No acute osseous abnormality. Degenerative change of the spine and pelvis. Left axil inessa lymph node measures 3.8 x 1.9 cm axially IMPRESSION: 1. No acute findings within the chest, abdomen, or pelvis. 2. Enlarged 3.8 cm left axillary lymph node of unknown chronicity. No other enlarged lymph nodes iden tified. Correlate with any available prior imaging of the chest; if none are available, imaging follow-up required if tissue shan pling is not performed. 3. Chronic and incidental findings above. Electronically signed by: Wei Sanchez MD 06/04/2024 03:55 AM CDT RP Due to temporary technical issues with PACS / Fluency reporting system, reports are being signed by the in-house radiologist without review as a courtesy to ensure prompt reporting. The interpreting radiologist is fully responsible for the content of the report. Transcribed Date/Time: 06/04/2024 9:37 AM
--- NOTE | 2024-06-04 16:56 | EKG ---
Test Date: 2024-06-04 Test Time: 02:46:13 Manager Change: JACOBO MEASUREMENT RESULTS: Intervals: Rate: 63 IN: 122 QRSD: 94 QT: 394 QTc: 403 [place]: P: 64 IN: 122 QRS: 58 T: 48 INTERPRETIVE STATEMENTS: Normal sinus rhythm Normal ECG Compared to ECG 05/17/2023 04:32:13 ST (T wave) deviation no longer present Electronically Signed On 06-04-24 16:54:36 CDT by Nilay Jones
== END 2024-06-04 07:20 | disposition home or self-care (01) ==
LOC: ER 02:15
DX: F41.0 Panic disorder [episodic paroxysmal anxiety] (principal); R10.9 Unspecified abdominal pain; M54.9 Dorsalgia, unspecified; I10 Essential (primary) hypertension; F03.90 Unspecified dementia, unspecified severity, without behavioral disturbance, psychotic disturbance, mood disturbance, and anxiety; Z11.52 Encounter for screening for COVID-19
CPT/HCPCS: 93005; 85025; 81001; 80048; 36415; 83735; 85610; 80076; 84443; 84484; 84439; 83690; 83880; 80307; 87804 ×2; 71250; 74176; 71045; 87811; J1200; J2405; J7030; 96361; 96374; 96375; 99285

== ENCOUNTER 2024-06-29 18:14 | Inpatient (IN) | payer OTHER ==
--- OUTSIDE RECORDS SUMMARY | 2024-06-29 18:19 | XMS REPORT | Continuity of Care Document ---
Author Name Unknown Address [address] [facility] [address] [place] [address] [facility] Address [address] [facility] 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 Role Phone Alena Rose NP Primary Care Physician [phone]- [phone] TOM HOPE Attending Clinician Unavailable Kaycee Wilkinson MD Attending Clinician KAYCEE WILKINSON Attending Clinician Unavail able MELITA FRANLKIN Attending Clinician UnavailALMAS Benavides Attending Clinician Unavailable Ben Thompson MD Attending Clinician BEN THOMPSON Attending Clinician Unavail able TOM HOPE Admitting Clinician Unavailable ALMAS MURGUIA Admitting Clinician Unavailable BEN THOMPSON Admitting Clinician Unavail able Payers Payer Name Policy Type Policy Number Effective Date Expirati on Date Source UHC MEDICARE ADVANTAGE Medicare [id number] 2024 00:00:00 [facility] (MEDICARE REPLACEMENT HMO) [facility] 2022 00:00:00 Problems Condition Name Condition Details Condition Category Status Onset Date Resolution Date Last Treatment Date Treating Clinician Comments Source Frequent falls Frequent falls Disease Active 06-04 00:00: 00 Memoria l Valentines Epic HTN (hypertens ion) HTN (hypertens ion) Disease Active 06-04 00:00: 00 Memoria l Wilfredo Epic Hyperlipid emia Hyperlipid emia Disease Active 06-04 00:00: 00 Memoria l Valentines Epic Lumbar spondylosi s Lumbar spondylosi s Disease Active 06-04 00:00: 00 Memoria xiang YoderWilfredo Epic Memory loss Memory loss Disease Active 06-04 00:00: 00 Memoria l Wilfredo Epic Paresthesi a Paresthesi a Disease Active 06-04 00:00: 00 Memoria l Valentines Epic Syncope Syncope Disease Active 06-04 00:00: 00 Memoria l Wilfredo Epic Left thigh pain Left thigh pain Disease Active 06-04 00:00: 00 Memoria l Wilfredo Epic MARÍA ELENA (acute kidney injury) MARÍA ELENA (acute kidney injury) Disease Active 06-04 00:00: 00 Memoria l Valentines Epic Anxiety Anxiety Disease Active 06-04 00:00: 00 Memoria l Wilfredo Epic Diverticul itis Problem Inactiv e [facility] Esophagiti s Problem Inactiv e [facility] Abdominal pain Problem Inactiv e [facility] Abnormal findings on diagnostic imaging of abdomen Problem Inactiv e [facility] Acute diverticul itis of intestine Problem Inactiv e [facility] Intractabl e nausea Problem Inactiv e [facility] Severe sepsis Problem Inactiv e [facility] Pain of left thigh Problem Inactiv e [facility] Abnormal finding of diagnostic imaging Problem Inactiv e [place] Dehydratio n Dehydratio n Disease Resolve d 06-04 00:00: 00 2024-06-04 00:00:00 2024-06-04 08:48:21 Jonh Ramirez Chest pain Chest pain Disease Resolve d 06-04 00:00: 00 2024-06-04 00:00:00 2024-06-04 08:48:21 Jonh Villalobos [facility] Allergies, Adverse Reactions, Alerts Allergy Name Allergy Type Status Severity Reaction(s) Onset Date Inactive Date Treating Clinician Comments Source No Known Drug Allergie s Allergy to substanc e Active Unknown 01-01 00:00: 00 [place] No Known Drug Allergie s Allergy to substanc e Active Unknown 12-27 00:00: 00 [facility] NO KNOWN ALLERGIE S Drug Class Active [facility] Social History Social Habit Start Date Stop Date Quantity Comments Source Gender identity 2023-12-09 18:50:11 Identifies as male gender (finding) [facility] History of tobacco use [facility] Sexual orientation M emogayathrial [facility] Alcoholic beverage intake 2024-06-04 00:00:00 2024-06-04 00:00:00 Lifetime non-drinker (finding) [facility] History of Social function 2024-06-04 00:00:00 2024-06-04 00:00:00 [facility] Sex Ass[birth year] At 1955 00:00:00 1955 00:00:00 Male [facility] Smoking Status Start Date Stop Date Source Tobacco smoking consumption unknown [facility] Never smoked tobacco Jonh Villalobos [facility] Medications Ordered Medication Name Filled Medication Name Start Date Stop Date Current Medication? Ordering Clinician Indication Dosage Frequency Signature (SIG) Comments Components Source gabapentin (Neurontin) 300 MG capsule gabapentin (Neurontin) 300 MG capsule 06-04 09:32: 35 Yes 300mg [id number] 3D Take 300 mg by mouth in the morning and 300 mg at noon and 300 mg in the evening. Jonh Ramirez pantoprazol e (ProtoNix) 40 MG EC tablet pantoprazol e (ProtoNix) 40 MG EC tablet 06-04 09:00: 11 Yes TAKE 1 TABLET BY MOUTH ONCE DAILY FOR STOMACH ACID Jonh Ramirez sertraline (Zoloft) 50 MG tablet sertraline (Zoloft) 50 MG tablet 06-04 00:00: 00 06-04 23:59 :00 No 50mg QD Take 1 tablet by mouth 1 time each day. Jonh Ramirez methocarbam ol (Robaxin) 750 MG tablet methocarbam ol (Robaxin) 750 MG tablet 05-31 00:00: 00 Yes 1{tbl} Q.[id number] 3D Take 1 tablet by mouth every 6 hours during the day. Jonh Ramirez diclofenac (Voltaren) 75 MG EC tablet diclofenac (Voltaren) 75 MG EC tablet 05-31 00:00: 00 Yes 75mg Take 75 mg by mouth in the morning and 75 mg in the evening. Take with meals. Jonh Ramirez methylPREDN ISolone (Medrol Dospak) 4 MG tablets methylPREDN ISolone (Medrol Dospak) 4 MG tablets 05-31 00:00: 00 Yes take as directed on package Jonh Ramirez LORazepam (Ativan) 1 MG tablet LORazepam (Ativan) 1 MG tablet 04-23 00:00: 00 Yes 1{tbl} Q.[id number] 3D Take 1 tablet by mouth every 6 hours during the day. Jonh Ramirez Acetaminoph en/Hydrocod one Bitart (Walker 5/325) 1 Each TAB 02-22 10:26: 00 No 1tab Every 4 - 6 Hours as needed for Pain [facility] Gabapentin (Neurontin) 300 Mg CAP 02-22 10:26: 00 No 300mg Three Times A Day [facility] Oxycodone/A cetaminophe n (Percocet 7.5-325) 1 Ea TAB 12-31 08:50: 00 01-31 00:04 :00 No 1tab Every 8 Hours as needed for Severe Pain(7-10) [facility] Amlodipine Besylate (Norvasc) 10 Mg TAB 12-31 08:49: 00 No 10mg Every Morning [facility] Lisinopril (Zestril) 20 Mg TAB 12-31 08:49: 00 No 20mg Daily [facility] Metoclopram karen Hcl (Reglan) 5 Mg TAB 12-31 08:49: 00 No 5mg Before Meals as needed for Nausea [facility] Pantoprazol e (Protonix) 40 Mg TABEC 12-31 08:49: 00 No 40mg Daily [facility] Sucralfate (Carafate) 1 Gm TAB 12-31 08:49: 00 No 1g Before Meals [facility] Ciprofloxac in (Cipro) 500 Mg TAB 12-31 08:49: 00 01-07 08:41 :00 No 500mg Every 12 Hours [facility] Metronidazo le (Flagyl) 500 Mg TAB 12-31 08:49: 00 01-07 08:41 :00 No 500mg Three Times A Day [facility] amLODIPine (Norvasc) 10 MG tablet amLODIPine (Norvasc) 10 MG tablet 12-31 00:00: 00 Yes 10mg 10 mg. Jonh Villalobos Epic lisinopril 20 MG tablet lisinopril 20 MG tablet 12-31 00:00: 00 Yes 20mg 20 mg. Jonh Villalobos Epic atorvastati n (Lipitor) 20 MG tablet atorvastati n (Lipitor) 20 MG tablet 03-16 00:00: 00 Yes TAKE ONE (1) TABLET(S) BY MOUTH ONCE A DAY IN THE EVENING. Jonh Ramirez clopidogrel (Plavix) 75 MG tablet clopidogrel (Plavix) 75 MG tablet 03-16 00:00: 00 06-04 00:00 :00 No TAKE ONE (1) TABLET(S) BY MOUTH ONCE A DAY. Jonh Ramirez DULoxetine (Cymbalta) [address] capsule DULoxetine (Cymbalta) [address] capsule 03-16 00:00: 00 06-04 00:00 :00 No 60mg 60 mg = 1 cap, PO, Daily, # 30 cap, 0 Refill(s) Jonh Ramirez diazePAM (Valium) 10 MG tablet diazePAM (Valium) 10 MG tablet 03-16 00:00: 00 06-04 00:00 :00 No 10mg Take 10 mg by mouth at bedtime. Jonh Ramirez methylpredn isolone sod succ (SOLU-MEDRO L) injection 125 mg 02-19 04:45: 00 02-19 05:03 :00 No 125mg 125 mg, Slow IV Push, ONCE, 1 dose, On 02/18/23 at 2345, IVANA [facility] FENTanyl PF (SUBLIMAZE (PF)) injection 100 mcg 02-19 04:45: 00 02-19 04:33 :00 No 100ug 100 mcg, Slow IV Push, ONCE, 1 dose, On 02/18/23 at 2345, Routine [facility] ondansetron (ZOFRAN (PF)) injection 4 mg 02-19 03:00: 00 02-19 03:17 :00 No 4mg 4 mg, Slow IV Push, ONCE, 1 dose, On 02/18/23 at 2200, STAT [facility] morpHINE (4 mg/mL) injection 4 mg 02-19 03:00: 00 02-19 03:17 :00 No 4mg 4 mg, Slow IV Push, ONCE, 1 dose, On 02/18/23 at 2200, IVANA [facility] NaCl 0.9% (NS) bolus infusion 2,829 mL 02-19 03:00: 00 02-19 05:01 :00 No 30mL/kg at 999 mL/hr, 2,829 mL (30 mL/kg ?94.3 kg), IV Infusion, ONCE, 1 dose, On 02/18/23 at 2200, IVANA [facility] cyclobenzap rine 10 mg tablet 02-18 00:00: 00 Yes [id number] 10mg Take 1 tablet by mouth 2 (two) times daily as needed for Muscle Spasms for up to 10 doses. [facility] ibuprofen (MOTRIN IB) 200 mg tablet 02-18 00:00: 00 Yes [id number] 400mg Take 2 tablets by mouth every 6 (six) hours as needed for Pain (scale 1-3) for up to 30 doses. [facility] predniSONE 20 mg tablet 02-18 00:00: 00 02-21 04:59 :00 No [id number] 20mg Take 1 tablet by mouth in the morning and 1 tablet in the evening. Do all this for 2 days. [facility] Vital Signs Vital Name Observation Time Observation Value Comments S ource Systolic blood pressure 2024-06-04 09:05:00 121 mm[Hg] [facility] Diastolic blood pressure 2024-06-04 09:05:00 65 mm[Hg] [facility] Heart rate 2024-06-04 09:05:00 66 /min Zack galindo [facility] Body temperature 2024-06-04 09:05:00 36.39 Kyara [facility] Respiratory rate 2024-06-04 09:05:00 16 /min [facility] Body height 2024-06-04 09:05:00 176.5 cm [facility] Body weight 2024-06-04 09:05:00 101.878 kg [facility] BMI 2024-06-04 09:05:00 32.69 kg/m2 [facility] Oxygen saturation in Arterial blood by Pulse oximetry 2024-06-04 09:05:00 96 /min [facility] Systolic blood pressure 2024-06-04 09:05:00 121 mm[Hg] [facility] Diastolic blood pressure 2024-06-04 09:05:00 65 mm[Hg] [facility] Heart rate 2024-06-04 09:05:00 66 /min Zack Villalobos [facility] Body temperature 2024-06-04 09:05:00 36.39 Kyara [facility] Respiratory rate 2024-06-04 09:05:00 16 /min [facility] Body height 2024-06-04 09:05:00 176.5 cm [facility] weight 2024-06-04 09:05:00 101.878 kg Jadon weiner [facility] BMI 2024-06-04 09:05:00 32.69 kg/m2 [facility] O[facility] saturation in Arterial blood by Pulse oximetry 2024-06-04 09:05:00 96 /min [facility] Body Temperature 2024-02-23 10:37:00 98.1 [degF] [facility] Heart Rate 2024-02-23 10:37:00 68 /min [facility] Respiratory rate 2024-02-23 10:37:00 17 /min [facility] BP Systolic 2024-02-23 10:37:00 137 mm[Hg] [facility] BP Diastolic 2024-02-23 10:37:00 82 mm[Hg] [facility] Height 2024-02-23 09:33:00 180.955019 cm [facility] Weight 2024-02-23 09:33:[address] [facility] BMI (Body Mass Index) 2024-02-23 09:33:00 28.6 kg/m2 [facility] Body Temperature 2024-01-08 07:01:00 98.7 [degF] [facility] Heart Rate 2024-01-08 07:01:00 80 /min [facility] Respiratory rate 2024-01-08 07:01:00 16 /min [facility] BP Systolic 2024-01-08 07:01:00 127 mm[Hg] [facility] BP Diastolic 2024-01-08 07:01:00 98 mm[Hg] [facility] Weight 2024-01-02 17:57:[address] [facility] BMI (Body Mass Index) 2024-01-02 17:57:00 29.4 kg/m2 [facility] Height 2024-01-02 13:44:00 180.091003 cm [facility] Body Temperature 2024-01-01 11:30:00 97.5 [degF] [facility] Heart Rate 2024-01-01 11:30:00 73 /min [facility] Respiratory rate 2024-01-01 11:30:00 14 /min [facility] BP Systolic 2024-01-01 11:30:00 163 mm[Hg] [facility] BP Diastolic 2024-01-01 11:30:00 87 mm[Hg] [facility] Body Temperature 2024-01-01 11:30:00 97.5 [degF] [facility] Heart Rate 2024-01-01 11:30:00 73 /min [facility] Respiratory rate 2024-01-01 11:30:00 14 /min [facility] BP Systolic 2024-01-01 11:30:00 163 mm[Hg] [facility] BP Diastolic 2024-01-01 11:30:00 87 mm[Hg] [facility] BMI (Body Mass Index) 2023-12-29 12:00:00 29.3 kg/m2 [facility] Height 2023-12-28 18:32:00 180.852164 cm [facility] Weight 2023-12-28 18:32:[address] [facility] Systolic blood pressure 2023-02-19 04:33:00 177 mm[Hg] [facility] Diastolic blood pressure 2023-02-19 04:33:00 92 mm[Hg] [facility] Heart rate 2023-02-19 04:33:00 79 /min [facility] Respiratory rate 2023-02-19 04:33:00 18 /min [facility] Oxygen saturation in Arterial blood by Pulse oximetry 2023-02-19 04:33:00 99 /min [facility] Body temperature 2023-02-19 02:31:00 36.5 Kyara [facility] Body height 2023-02-19 02:31:00 180.3 cm [facility] Body weight 2023-02-19 02:31:00 94.348 kg [facility] BMI 2023-02-19 02:31:00 29.01 kg/m2 [facility] Procedures Procedure Date / Time Performed Performing Clinician Source US vessels of extremity lower 2024-02-23 00:00:00 [facility] Physical therapy evaluation and treatment 2024-01-05 00:00:00 [facility] Computed tomography of abdomen and pelvis with contrast 2024-01-02 15:30:00 [facility] ECG (electrocardiogram) 2024-01-02 13:50:00 [facility] Radiologic examination, femur; minimum 2 views 2024-01-02 00:00:00 [facility] ECG (electrocardiogram) 2024-01-02 00:00:00 [facility] Observation care 2024-01-02 00:00:00 [facility] Computed tomography of abdomen and pelvis with contrast 2023-12-31 08:40:00 [facility] Computed tomography of abdomen and pelvis with contrast 2023-12-31 08:40:00 [facility] Computed tomography angiography of abdomen and pelvis 2023-12-28 20:36:00 [facility] Computed tomography angiography of abdomen and pelvis 2023-12-28 20:36:00 [facility] ECG (electrocardiogram) 2023-12-28 18:39:00 [facility] ECG (electrocardiogram) 2023-12-28 18:39:00 [facility] X-ray of chest, single view 2023-12-28 00:00:00 [facility] Computed tomography of abdomen and pelvis without contrast 2023-12-28 00:00:00 [facility] X-ray of chest, single view 2023-12-28 00:00:00 [facility] Computed tomography of abdomen and pelvis without contrast 2023-12-28 00:00:00 [facility] ASSIGNMENT OF BENEFITS 2023-02-19 05:17:57 Docto r Unassigned, [place] [facility] EKG-12 LEAD 2023-02-19 04:58:01 Bne Thompson [facility] URINALYSIS 2023-02-19 04:24:00 Ben Thompson [facility] COVID-19 (ID NOW RAPID TESTING) 2023-02-19 03:18:00 Ben Thompson [facility] CT ABDOMEN PELVIS WO CONTRAST 2023-02-19 03:14:17 Ben Thompson [facility] XR CHEST 2 VW 2023-02-19 03:14:02 Ben Thompson [facility] AC ABG + LACTIC ACID 2023-02-19 03:13:00 Ben Thompson [facility] LIPASE 2023-02-19 02:50:00 Ben Thompson [facility] TROPONIN I 2023-02-19 02:50:00 Ben Thompson [facility] COMP. METABOLIC PANEL (19501) 2023-02-19 02:50:00 Ben Thompson [facility] CBC WITH DIFF 2023-02-19 02:50:00 Ben Thompson [facility] N-TERMINAL PRO-BNP 2023-02-19 02:50:00 Ben Thompson [facility] CONSENT/REFUSAL FOR DIAGNOSIS AND TREATMENT 2023-02-19 02:21:16 Doctor Unassigned, [place] [facility] Encounters Start Date/Time End Date/Time Encounter Type Admission Type Attending [facility] Care Facility Care Department Encounter ID Source 2024-01-02 17:25:00 Inpatient ER [facility] [id number] [facility] 2024-06-04 09:00:00 2024-06-04 09:36:40 Office Visit Kaycee Wilkinson [id number] Memoria l [facility] 2024-06-04 08:44:21 2024-06-04 09:36:40 Outpatient [facility] [id number] EOUT 2024-02-23 09:11:00 2024-02-23 10:45:00 Departed Emergency Room [facility] [id number] [facility] 2024-02-23 09:11:00 2024-02-23 10:45:00 Emergency ER MELITA FRANKLIN [facility] [id number] [facility] 2024-01-04 09:18:00 2024-01-08 10:20:00 Discharged Inpatient [facility] [id number] [facility] 2024-01-04 09:18:00 2024-01-08 10:20:00 Inpatient ER [facility] [id number] [facility] 2023-12-28 22:28:00 2024-01-01 12:55:00 Discharged Inpatient [id number] [facility] [id number] [facility] 2023-12-28 22:28:00 2024-01-01 12:55:00 [facility] [id number] [facility] 2023-02-18 21:32:00 2023-02-19 00:21:00 Emergency Ben Thompson [facility] [id number] [facility] 2023-02-18 21:32:00 2023-02-19 00:21:00 Emergency X [facility] ERT [id number] [facility] 2022-07-27 00:00:00 2022-07-27 00:00:00 Outpatient DMG [id number] [facility] Results Test Description Test Time Test Comments Results Result Co mments Source [facility] [id number] 04:20:00* Test Item Value Reference Range Interpretation Comme nts Estimat Glomerular Filtratio n Rate (test code = 700443055) > 60 >60 [facility] leukocyte count (number/volume)2024-01-04 05:33:00* Test Item Value Reference Range Interpretation Comme [facility] White Blood Count (test code = 6690-2) 10.4 4.6-10.2 [facility] automated count (number/volume)2024-01-04 05:33:00* Test Item Value Reference Range Interpretation Comme [facility] Red Blood Count (test code = 789-8) 4.66 4.7-6.1 [facility] hemoglobin measurement (mass/volume) 2024-01-04 05:33:00* Test Item Value Reference Range Interpretation Comme [facility] Hemoglobin (test code = 718-7) 15.2 14.0-18.0 [facility] hematocrit (volume fraction) 2024-01-04 05:33:00* Test Item Value Reference Range Interpretation Comme [facility] Hematocrit (test code = 4544-3) 41.8 42.0-52.0 [facility] Hospital[facility]ated erythrocyte mean corpuscular volume (MCV) [id number] 05:33:00* Test Item Value Reference Range Interpretation Comme nts Mean Corpuscular Volume (nagi t code = 787-2) 89.7 80-97 [facility] Hospital[facility]ated erythrocyte mean corpuscular hemoglobin (mass per erythrocyte)2024-01-04 05:33:00* Test Item Value Reference Range Interpretation Comme nts Mean Corpuscular Hemoglobin (test code = 785-6) 32.6 27.0-31.2 [facility] HospitalAutomated erythrocyte mean corpuscular hemoglobin concentration (MCHC) measurement ([id number] 05:33:00* Test Item Value Reference Range Interpretation Comme nts Mean Corpuscular Hemoglobin Concent (test code = 786-4) 36.4 31.8-35.4 [facility] HospitalAutomated erythrocyte distribution width [id number] 05:33:00* Test Item Value Reference Range Interpretation Comme [facility] Red Cell Distribution Width (test code = 788-0) 12.9 12.5-18.0 [facility] HospitalAutomated blood platelet count (count/volume) 2024-01-04 05:33:00* Test Item Value Reference Range Interpretation Comme [facility] Platelet Count (test code = 777-3) 221 142-424 [facility] HospitalAutomated blood neutrophil count as percentage of total [id number] 05:33:00* Test Item Value Reference Range Interpretation Comme nts Neutrophils (%) (Auto) (test code = 770-8) 54.9 37-80 [facility] HospitalAutomated blood lymphocyte count as percentage of total gkgtkxqdrr9795-96-12 05:33:00* Test Item Value Reference Range Interpretation Comme nts Lymphocytes (%) (Auto) (test code = 736-9) 29.4 25-40 [facility] HospitalAutomated blood monocyte count as percentage of total ttliilqzfk9436-08-70 05:33:00* Test Item Value Reference Range Interpretation Comme nts Monocytes (%) (Auto) (test c ode = 5905-5) 11.1 1-15 [facility] HospitalAutomated blood eosinophil count as percentage of total [id number] 05:33:00* Test Item Value Reference Range Interpretation Comme nts Eosinophils (%) (Auto) (test code = 713-8) 1.1 1-3 [facility] HospitalAutomated blood basophil count as percentage of total cizhvpxoel6622-69-18 05:33:00* Test Item Value Reference Range Interpretation Comme nts Basophils (%) (Auto) (test c ode = 706-2) 0.7 0-3 [facility] HospitalAutomated blood nucleated erythrocyte count as percentage of total eotpniibgz0823-15-59 05:33:00* Test Item Value Reference Range Interpretation Comme nts Nucleated Red Blood Cells % (test code = 22756-6) 0.0 [facility] HospitalAutomated blood neutrophil count (number/volume)2024-01-04 05:33:00* Test Item Value Reference Range Interpretation Comme nts Neutrophils # (Auto) (test c ode = 751-8) 5.69 1.8-7.7 [facility] HospitalSodium measurement (moles/volume)2024-01-04 05:33:00* Test Item Value Reference Range Interpretation Comme nts Sodium Level (test code = 21758-5) 135 135-145 [facility] HospitalSerum or plasma potassium measurement (moles/volume)2024-01-04 05:33:00* Test Item Value Reference Range Interpretation Comme nts Potassium Level (test code = 2823-3) 3.8 3.6-5.2 [facility] HospitalSerum or plasma chloride measurement (moles/volume)2024-01-04 05:33:00* Test Item Value Reference Range Interpretation Comme nts Chloride Level (test code = 2075-0) 100 100-108 [facility] HospitalSerum or plasma carbon dioxide measurement (moles/volume)2024-01-04 05:33:00* Test Item Value Reference Range Interpretation Comme nts Carbon Dioxide Level (test c ode = 2028-9) 28 21-32 [facility] HospitalSerum or plasma anion [id number] 05:33:00 * Test Item Value Reference Range Interpretation Comme nts Anion Gap (test code = 04687-8) 7.0 3.0-11.0 [facility] HospitalSerum or plasma urea nitrogen measurement (mass/volume)2024-01-04 05:33:00* Test Item Value Reference Range Interpretation Comme nts Blood Urea Nitrogen (test co de = 3094-0) 9 04-04 [facility] nitrogen/creatinine mass [id number] 05:33:00* Test Item Value Reference Range Interpretation Comme nts BUN/Creatinine Ratio (test c ode = 3097-3) 10.71 18 [facility] glucose measurement (mass/volume)2024-01-04 05:33:00* Test Item Value Reference Range Interpretation Comme nts Glucose Level (test code = 2345-7) 105 70-110 [facility] calcium measurement (mass/volume)2024-01-04 05:33:00* Test Item Value Reference Range Interpretation Comme nts Calcium Level (test code = 13183-6) 8.7 8.8-10.5 [facility] OrleansTrough vancomycin qacck5864-11-52 05:33:00* Test Item Value Reference Range Interpretation Comme nts Vancomycin Level Trough (nagi t code = 4092-3) 10.2 5.0-19.9 [facility] OrleansPhosphorus ser/hgqs4815-02-92 04:05:00* Test Item Value Reference Range Interpretation Comme nts Phosphorus Level (test code = 2777-1) 2.6 2.6-4.7 [facility] magnesium measurement (mass/volume)2024-01-03 04:05:00* Test Item Value Reference Range Interpretation Comme nts Magnesium Level (test code = 82645-7) 2.0 1.8-2.4 [facility] total bilirubin measurement (mass/volume)2024-01-03 04:05:00* Test Item Value Reference Range Interpretation Comme nts Total Bilirubin (test code = 1975-2) 0.8 0.0-1.0 [facility] HospitalSerum or plasma aspartate aminotransferase measurement (enzymatic activity/volume)2024-01-03 04:05:00* Test Item Value Reference Range Interpretation Comme nts Aspartate Amino Transf (AST/ SGOT) (test code = 1920-8) 18 15-37 [facility] HospitalSerum or plasma alanine aminotransferase measurement (enzymatic activity/volume)2024-01-03 04:05:00* Test Item Value Reference Range Interpretation Comme nts Alanine Aminotransferase (AL T/SGPT) (test code = 1742-6) 39 12-78 [facility] HospitalSerum or plasma protein measurement (mass/volume)2024-01-03 04:05:00* Test Item Value Reference Range Interpretation Comme nts Total Protein (test code = 2885-2) 6.6 6.4-8.2 [facility] albumin measurement (mass/volume)2024-01-03 04:05:00* Test Item Value Reference Range Interpretation Comme nts Albumin (test code = 1751-7) 3.1 3.4-5.0 [facility] globulin measurement by calculation (mass/volume)2024-01-03 04:05:00* Test Item Value Reference Range Interpretation Comme nts Globulin (test code = 78080-9) 3.5 2.3-3.5 [facility] albumin/globulin mass ratio 2024-01-03 04:05:00* Test Item Value Reference Range Interpretation Comme nts Albumin/Globulin Ratio (test code = 1759-0) 0.885 1.1-1.8 [facility] HospitalSerum or plasma alkaline phosphatase measurement (enzymatic activity/volume)2024-01-03 04:05:00* Test Item Value Reference Range Interpretation Comme nts Alkaline Phosphatase (test c ode = 6768-6) 53 46-116 [facility] lipase measurement (enzymatic activity/volume)2024-01-03 04:05:00* Test Item Value Reference Range Interpretation Comme nts Lipase (test code = 3040-3) 259 16-77 [facility] OrleansTroponin I SerPl IA-iHfk0734-16-16 18:33:00* Test Item Value Reference Range Interpretation Comme nts Troponin I High Sensitivity (test code = 05752-6) 11 3-78 [facility] OrleansBacterial blood [id number] 14:23:00* Test Item Value Reference Range Interpretation Comme nts Blood Culture (test code = 600-7) No growth aerobically/anaerobica lly in 4 days [facility] OrleansUrn Spec Collect Meth [id number] 14:14:00* Test Item Value Reference Range Interpretation Comme nts Urine Source (test code = 99032-8) Cl Catch [place] [facility] OrleansColor [id number] 14:14:00* Test Item Value Reference Range Interpretation Comme nts Urine Color (test code = 5778-6) Yellow Yellow [facility] appearance [id number] 14:14:00* Test Item Value Reference Range Interpretation Comme nts Urine Appearance (test code = 5767-9) Clear Clear [facility] pH measurement by test [id number] 14:14:00* Test Item Value Reference Range Interpretation Comme nts Urine pH (test code = 5803-2) 7.0 5.0-9.0 [facility] Hospitalpecific gravity of Urine by Test strip 2024-01-02 14:14:00* Test Item Value Reference Range Interpretation Comme nts Urine Specific [place] (test code = 5811-5) 1.010 1.000-1.030 [facility] protein measurement by automated test strip (mass/volume)2024-01-02 14:14:00* Test Item Value Reference Range Interpretation Comme [facility] Urine Protein (test code = 41842-1) 30 Negative [facility] glucose measurement by automated test strip (mass/volume)2024-01-02 14:14:00* Test Item Value Reference Range Interpretation Comme nts Urine Glucose (UA) (test cod e = 92749-2) 50 Normal [facility] ketones detection by automated test [id number] 14:14:00* Test Item Value Reference Range Interpretation Comme nts Urine Ketones (test code = 14065-2) Trace Negative [facility] erythrocytes count by automated test strip (number/volume)2024-01-02 14:14:00* Test Item Value Reference Range Interpretation Comme nts Urine Occult Blood (test cod e = 98325-6) Negative Negative [facility] nitrite detection by automated test [id number] 14:14:00* Test Item Value Reference Range Interpretation Comme nts Urine Nitrite (test code = 13850-3) Negative Negative [facility] OrleansU[facility] total bilirubin detection by automated test [id number] 14:14:00* Test Item Value Reference Range Interpretation Comme nts Urine Bilirubin (test code = 37055-9) Negative Negative [facility] urobilinogen measurement by automated test strip (mass/volume)2024-01-02 14:14:00* Test Item Value Reference Range Interpretation Comme nts Urine Urobilinogen (test cod e = 66818-0) Normal Normal [facility] leukocyte esterase detection by automated test [id number] 14:14:00* Test Item Value Reference Range Interpretation Comme nts Urine Leukocyte Esterase (te st code = 92169-1) 25 Negative [facility] microscopic examination for dysmorphic red blood [id number] 14:14:00* Test Item Value Reference Range Interpretation Comme nts Urine RBC (test code = 48147-5) None 0-2 [facility] OrleansAutomated leukocytes count in urine sediment by microscopy high power field (number/area)2024-01-02 14:14:00* Test Item Value Reference Range Interpretation Comme nts Urine WBC (test code = 5821-4) 0-2 0-5 [facility] sediment squamous epithelial cell count by microscopy (number/low power field)2024-01-02 14:14:00* Test Item Value Reference Range Interpretation Comme nts Urine Squamous Epithelial Ce lls (test code = 04876-0) 1+ Few [facility] sediment bacteria count by microscopy (number/high power field)2024-01-02 14:14:00* Test Item Value Reference Range Interpretation Comme nts Urine Bacteria (test code = 5769-5) +/- Rare Few/HPF [facility] [id number]-[id number] 14:14:00* Test Item Value Reference Range Interpretation Comme nts Urine Culture Indicated (test code = 8264-4) No, Criteria Not Met [facility] amphetamines detection by screening sdjavg2965-25-43 14:14:00* Test Item Value Reference Range Interpretation Comme nts Urine Amphetamines Screen (t est code = 21341-9) Negative Negative [facility] barbiturates detection by screening fsbcee9172-48-77 14:14:00* Test Item Value Reference Range Interpretation Comme nts Urine Barbiturates Screen (t est code = 52092-4) Negative Negative [facility] benzodiazepines detection by screening [id number] 14:14:00* Test Item Value Reference Range Interpretation Comme nts Urine Benzodiazepines Screen (test code = 12693-5) Negative Negative [facility] benzoylecgonine detection by screening fwdkwn6948-34-22 14:14:00* Test Item Value Reference Range Interpretation Comme nts Urine Cocaine Screen (test c ode = 86016-3) Negative Negative [facility] methadone fdfcze6857-76-02 14:14:00* Test Item Value Reference Range Interpretation Comme nts Urine Methadone, Qualitative (test code = 04137-2) Negative Negative [facility] opiates screening [id number] 14:14:00* Test Item Value Reference Range Interpretation Comme nts Urine Opiates Screen (test c ode = 62406-1) Positive Negative [facility] phencyclidine detection by screening [id number] 14:14:00* Test Item Value Reference Range Interpretation Comme nts Urine Phencyclidine Screen ( test code = 13084-8) Negative Negative [facility] cannabinoids detection by screening [id number] 14:14:00* Test Item Value Reference Range Interpretation Comme nts Urine Cannabinoids (test cod e = 81675-1) Positive Negative [facility] OrleansU[facility] pH measurement by automated test strip 2024-01-02 14:14:00* Test Item Value Reference Range Interpretation Comme nts Urine pH (test code = 23057-1) 7.0 5-8 [facility] OrleansWhole blood prothrombin [id number] 14:05:00* Test Item Value Reference Range Interpretation Comme nts Prothrombin Time (test code = 5964-2) 10.8 10.4-13.2 [facility] HospitalINR in Platelet poor plasma by Coagulation xtilk8471-88-18 14:05:00* Test Item Value Reference Range Interpretation Comme nts Prothromb Time International Ratio (test code = 6301-6) 0.9 0.9-1.1 [facility] OrleansPartial thromboplastin time (PTT) in platelet poor kmazog7092-12-62 14:05:00* Test Item Value Reference Range Interpretation Comme nts Activated Partial Thrombopla st Time (test code = 16857-1) 27.3 25.2-38.7 [facility] OrleansLactate ser/gfjh3085-43-69 14:05:00* Test Item Value Reference Range Interpretation Comme nts Lactic Acid Level (test code = 2524-7) 1.5 0.4-1.9 [facility] plasma creatine kinase measurement (enzymatic activity/volume)2024-01-02 14:05:00* Test Item Value Reference Range Interpretation Comme nts Total Creatine Kinase (test code = 2157-6) 137 26-308 [facility]er[facility] plasma C reactive protein measurement (mass/volume)2024-01-02 14:05:00* Test Item Value Reference Range Interpretation Comme nts C-Reactive Protein, Quantita tive (test code = 1988-5) < 0.2 0.0-0.9 [facility] plasma procalcitonin measurement (mass/volume)2024-01-02 14:05:00* Test Item Value Reference Range Interpretation Comme nts Procalcitonin (test code = 07895-1) 0.06 0.0-0.5 [facility] OrleansBacterial blood aqnlskk3277-46-34 14:05:00* Test Item Value Reference Range Interpretation Comme nts Blood Culture (test code = 600-7) No growth aerobically/anaerobica lly in 4 days [facility] Hospitalpecimen source [id number] 14:04:00* Test Item Value Reference Range Interpretation Comme nts Coronavirus 2019 Source (nagi t code = 52122-0) Nasal swab [facility]ARS-CoV-2 RdRp Resp Ql MICAH+vdswz2038-64-11 14:04:00* Test Item Value Reference Range Interpretation Comme nts SARS CoV-2 RNA Rapid MICAH (te st code = 00621-4) Negative Negative [facility] OrleansHaemophilus influenzae A antigen detection 2024-01-02 14:04:00* Test Item Value Reference Range Interpretation Comme nts Influenza Type A Antigen (te st code = 62962-2) Negative Negative [facility] OrleansHaemophilus influenzae B antigen detection 2024-01-02 14:04:00* Test Item Value Reference Range Interpretation Comme nts Influenza Type B Antigen (te st code = 60579-6) Negative Negative [facility] OrleansTrough vancomycin [id number] 16:51:00* Test Item Value Reference Range Interpretation Comme nts Vancomycin Level Trough (nagi t code = 4092-3) 11.3 5.0-19.9 [facility] Hospitaler[facility] or plasma procalcitonin measurement (mass/volume)2023-12-30 04:30:00* Test Item Value Reference Range Interpretation Comme nts Procalcitonin (test code = 03893-3) 0.08 0.0-0.5 [facility] OrleansAutomated blood leukocyte count (number/volume)2023-12-30 04:30:00* Test Item Value Reference Range Interpretation Comme nts White Blood Count (test code = 6690-2) 13.8 4.6-10.2 [facility] OrleansBlaust[facility] erythrocytes automated count (number/volume)2023-12-30 04:30:00* Test Item Value Reference Range Interpretation Comme nts Red Blood Count (test code = 789-8) 3.97 4.7-6.1 [facility] HospitalBlood hemoglobin measurement (mass/volume) 2023-12-30 04:30:00* Test Item Value Reference Range Interpretation Comme [facility] Hemoglobin (test code = 718-7) 12.7 14.0-18.0 [facility] OrleansAutomated blood hematocrit (volume fraction) 2023-12-30 04:30:00* Test Item Value Reference Range Interpretation Comme [facility] Hematocrit (test code = 4544-3) 36.1 42.0-52.0 [facility] HospitalAutomated erythrocyte mean corpuscular volume (MCV) huhfqbezftm8270-19-29 04:30:00* Test Item Value Reference Range Interpretation Comme [facility] Mean Corpuscular Volume (nagi t code = 787-2) 90.9 80-97 [facility] OrleansAutomated erythrocyte mean corpuscular hemoglobin (mass per erythrocyte)2023-12-30 04:30:00* Test Item Value Reference Range Interpretation Comme [facility] Mean Corpuscular Hemoglobin (test code = 785-6) 32.0 27.0-31.2 [facility] HospitalAutomated erythrocyte mean corpuscular hemoglobin concentration (MCHC) measurement ([id number] 04:30:00* Test Item Value Reference Range Interpretation Comme [facility] Mean Corpuscular Hemoglobin Concent (test code = 786-4) 35.2 31.8-35.4 [facility] HospitalAutomated erythrocyte distribution width maajh3885-97-34 04:30:00* Test Item Value Reference Range Interpretation Comme [facility] Red Cell Distribution Width (test code = 788-0) 13.0 12.5-18.0 [facility] HospitalAutomated blood platelet count (count/volume) 2023-12-30 04:30:00* Test Item Value Reference Range Interpretation Comme [facility] Platelet Count (test code = 777-3) 170 142-424 [facility] OrleansAutomated blood neutrophil count as percentage of total nvbcjdnwqf6221-44-76 04:30:00* Test Item Value Reference Range Interpretation Comme [facility] Neutrophils (%) (Auto) (test code = 770-8) 64.6 37-80 [facility] HospitalAutomated blood lymphocyte count as percentage of total xkcshhqcyl0699-63-31 04:30:00* Test Item Value Reference Range Interpretation Comme nts Lymphocytes (%) (Auto) (test code = 736-9) 24.8 25-40 [facility] HospitalAutomated blood monocyte count as percentage of total trlhytvszp7359-38-98 04:30:00* Test Item Value Reference Range Interpretation Comme nts Monocytes (%) (Auto) (test c ode = 5905-5) 9.3 1-15 [facility] HospitalAutomated blood eosinophil count as percentage of total gdmjbhggey7620-80-64 04:30:00* Test Item Value Reference Range Interpretation Comme nts Eosinophils (%) (Auto) (test code = 713-8) 0.2 1-3 [facility] HospitalAutomated blood basophil count as percentage of total uywndhadsb1990-08-31 04:30:00* Test Item Value Reference Range Interpretation Comme nts Basophils (%) (Auto) (test c ode = 706-2) 0.4 0-3 [facility] HospitalAutomated blood nucleated erythrocyte count as percentage of total eqjjulzmkq9596-69-18 04:30:00* Test Item Value Reference Range Interpretation Comme nts Nucleated Red Blood Cells % (test code = 46051-7) 0.0 [facility] HospitalAutomated blood neutrophil count (number/volume)2023-12-30 04:30:00* Test Item Value Reference Range Interpretation Comme nts Neutrophils # (Auto) (test c ode = 751-8) 8.91 1.8-7.7 [facility] Hospitalodium measurement (moles/volume)2023-12-30 04:30:00* Test Item Value Reference Range Interpretation Comme nts Sodium Level (test code = 49458-3) 137 135-145 [facility] Hospitalerum or plasma potassium measurement (moles/volume)2023-12-30 04:30:00* Test Item Value Reference Range Interpretation Comme nts Potassium Level (test code = 2823-3) 4.3 3.6-5.2 [facility] Hospitaler[facility] or plasma chloride measurement (moles/volume)2023-12-30 04:30:00* Test Item Value Reference Range Interpretation Comme nts Chloride Level (test code = 2075-0) 101 100-108 [facility] Hospitaler[facility] or plasma carbon dioxide measurement (moles/volume)2023-12-30 04:30:00* Test Item Value Reference Range Interpretation Comme nts Carbon Dioxide Level (test c ode = 2028-9) 26 21-32 [facility] Hospitalerum or plasma anion [id number] 04:30:00 * Test Item Value Reference Range Interpretation Comme nts Anion Gap (test code = 96467-6) 10.0 3.0-11.0 [facility]er[facility] or plasma urea nitrogen measurement (mass/volume)2023-12-30 04:30:00* Test Item Value Reference Range Interpretation Comme nts Blood Urea Nitrogen (test co de = 3094-0) 14 7-18 [facility] Hospitaler[facility] or plasma creatinine measurement (mass/volume)2023-12-30 04:30:00* Test Item Value Reference Range Interpretation Comme nts Creatinine (test code = 2160-0) 0.82 0.70-1.30 [facility] OrleansGFR estimate [id number] 04:30:00* Test Item Value Reference Range Interpretation Comme nts Estimat Glomerular Filtratio n Rate (test code = 441406680) > 60 >60 [facility] Hospitaler[facility] or plasma urea nitrogen/creatinine mass kdsou9494-20-15 04:30:00* Test Item Value Reference Range Interpretation Comme nts BUN/Creatinine Ratio (test c ode = 3097-3) 17.07 7-18 [facility]er[facility] plasma glucose measurement (mass/volume)2023-12-30 04:30:00* Test Item Value Reference Range Interpretation Comme nts Glucose Level (test code = 2345-7) 109 70-110 [facility]er[facility] plasma calcium measurement (mass/volume)2023-12-30 04:30:00* Test Item Value Reference Range Interpretation Comme nts Calcium Level (test code = 24524-0) 8.3 8.8-10.[address] [facility] Pid[facility]-rEzs8062-96-12 06:42:00* Test Item Value Reference Range Interpretation Comme nts Lactic Acid (Sepsis) (test c ode = 2524-7) 1.1 0.4-1.[address] [facility] DcuXu-aAge1745-29-12 06:42:00* Test Item Value Reference Range Interpretation Comme nts Lactic Acid (Sepsis) (test c ode = 2524-7) 1.1 0.4-1.9 [facility] HospitalManual blood neutrophils/100 leukocytes 2023-12-29 04:00:00* Test Item Value Reference Range Interpretation Comme nts Neutrophils % (Manual) (test code = 09482-0) 81.0 37-80 [facility] blood band neutrophils form/100 ewdwwswoss3958-59-27 04:00:00* Test Item Value Reference Range Interpretation Comme nts Band Neutrophils % (Manual) (test code = 764-1) 9.0 0-5 [facility]100 leukocytes 2023-12-29 04:00:00* Test Item Value Reference Range Interpretation Comme nts Lymphocytes % (Manual) (test code = 737-7) 10.0 25-40 [facility] total cell [id number] 04:00:00* Test Item Value Reference Range Interpretation Comme nts Differential Total Cells Cou nted (test code = 34448-4) 100 [facility] platelets count by estimate (number/volume)2023-12-29 04:00:00* Test Item Value Reference Range Interpretation Comme nts Platelet Estimate (test code = 24463-8) Normal [facility] erythrocyte morphology finding pzyeuqthcecxmz3214-57-25 04:00:00* Test Item Value Reference Range Interpretation Comme nts Red Blood Cell Morphology (t est code = 6742-1) N/N [facility] OrleansLactate ser/wbry6475-41-26 04:00:00* Test Item Value Reference Range Interpretation Comme nts Lactic Acid (Sepsis) Reflex (test code = 2524-7) 3.0 0.4-1.9 [facility] OrleansManual blood neutrophils/100 leukocytes 2023-12-29 04:00:00* Test Item Value Reference Range Interpretation Comme nts Neutrophils % (Manual) (test code = 10886-5) 81.0 37-80 [facility] OrleansManual blood band neutrophils form/100 eohmaxxidd8434-64-27 04:00:00* Test Item Value Reference Range Interpretation Comme nts Band Neutrophils % (Manual) (test code = 764-1) 9.0 0-5 [facility] OrleansManual blood lymphocytes/100 leukocytes 2023-12-29 04:00:00* Test Item Value Reference Range Interpretation Comme nts Lymphocytes % (Manual) (test code = 737-7) 10.0 25-40 [facility] OrleansBlood total cell xnhua9102-16-06 04:00:00* Test Item Value Reference Range Interpretation Comme nts Differential Total Cells Cou nted (test code = 93811-0) 100 [facility] count by estimate (number/volume)2023-12-29 04:00:00* Test Item Value Reference Range Interpretation Comme [facility] Platelet Estimate (test code = 11246-2) Normal [facility] finding rtifvcuoltjxvt1120-00-88 04:00:00* Test Item Value Reference Range Interpretation Comme nts Red Blood Cell Morphology (t est code = 6742-1) N/N [facility] HospitalLactate ser/kpnz4226-72-16 04:00:00* Test Item Value Reference Range Interpretation Comme nts Lactic Acid (Sepsis) Reflex (test code = 2524-7) 3.0 0.4-1.9 [facility] OrleansLactate ser/esqz3859-10-67 23:35:00* Test Item Value Reference Range Interpretation Comme nts Lactic Acid Level (test code = 2524-7) 2.6 0.4-1.9 [facility] OrleansUrine sediment hyaline cast count by microscopy (ordinal result/low power field)2023-12-28 21:00:00* Test Item Value Reference Range Interpretation Comme nts Urine Hyaline Casts (test co de = 22810-0) 2-4 None Seen [facility] OrleansUrn Spec Collect Meth [id number] 21:00:00* Test Item Value Reference Range Interpretation Comme nts Urine Source (test code = 56748-8) Cl Catch [place] [facility] OrleansColor [id number] 21:00:00* Test Item Value Reference Range Interpretation Comme nts Urine Color (test code = 5778-6) Pale Yellow Yellow [facility] OrleansUrine appearance isrgwwalzfqrm1976-24-52 21:00:00* Test Item Value Reference Range Interpretation Comme nts Urine Appearance (test code = 5767-9) Clear Clear [facility] pH measurement by test higsh0737-63-41 21:00:00* Test Item Value Reference Range Interpretation Comme nts Urine pH (test code = 5803-2) 5.0 5.0-9.0 [facility]pecific gravity [facility] Urine by Test strip 2023-12-28 21:00:00* Test Item Value Reference Range Interpretation Comme nts Urine Specific [place] (test code = 5811-5) 1.015 1.000-1.030 [facility] protein measurement by automated test strip (mass/volume)2023-12-28 21:00:00* Test Item Value Reference Range Interpretation Comme [facility] Urine Protein (test code = 97158-7) 100 Negative [facility] glucose measurement by automated test strip (mass/volume)2023-12-28 21:00:00* Test Item Value Reference Range Interpretation Comme nts Urine Glucose (UA) (test cod e = 61375-4) 100 Normal [facility] ketones detection by automated test [id number] 21:00:00* Test Item Value Reference Range Interpretation Comme nts Urine Ketones (test code = 37081-4) Small Negative [facility] erythrocytes count by automated test strip (number/volume)2023-12-28 21:00:00* Test Item Value Reference Range Interpretation Comme nts Urine Occult Blood (test cod e = 60092-0) 150 Negative [facility] nitrite detection by automated test [id number] 21:00:00* Test Item Value Reference Range Interpretation Comme nts Urine Nitrite (test code = 82408-7) Negative Negative [facility] total bilirubin detection by automated test [id number] 21:00:00* Test Item Value Reference Range Interpretation Comme nts Urine Bilirubin (test code = 41237-9) Negative Negative [facility] urobilinogen measurement by automated test strip (mass/volume)2023-12-28 21:00:00* Test Item Value Reference Range Interpretation Comme nts Urine Urobilinogen (test cod e = 07567-8) Normal Normal [facility] leukocyte esterase detection by automated test [id number] 21:00:00* Test Item Value Reference Range Interpretation Comme nts Urine Leukocyte Esterase (te st code = 83012-6) Negative Negative [facility] microscopic examination for dysmorphic red blood [id number] 21:00:00* Test Item Value Reference Range Interpretation Comme nts Urine RBC (test code = 28696-7) Rare 0-2 [facility] in urine sediment by microscopy high power field (number/area)2023-12-28 21:00:00* Test Item Value Reference Range Interpretation Comme nts Urine WBC (test code = 5821-4) Rare 0-5 [facility] sediment squamous epithelial cell count by microscopy (number/low power field)2023-12-28 21:00:00* Test Item Value Reference Range Interpretation Comme nts Urine Squamous Epithelial Ce lls (test code = 76104-5) 1+ Few [facility] sediment bacteria count by microscopy (number/high power field)2023-12-28 21:00:00* Test Item Value Reference Range Interpretation Comme nts Urine Bacteria (test code = 5769-5) +/- Rare Few/HPF [facility] sediment hyaline cast count by microscopy (ordinal result/low power field)2023-12-28 21:00:00* Test Item Value Reference Range Interpretation Comme nts Urine Hyaline Casts (test co de = 38006-8) 2-4 [facility] [id number] 21:00:00* Test Item Value Reference Range Interpretation Comme nts Urine Culture Indicated (test code = 8264-4) No, Criteria Not Met [facility] HospitalBacterial blood [id number] 19:31:00* Test Item Value Reference Range Interpretation Comme nts Blood Culture (test code = 600-7) No growth aerobically/anaerobica lly in 3 days [facility] HospitalSerum or plasma creatine kinase measurement (enzymatic activity/volume)2023-12-28 18:45:00* Test Item Value Reference Range Interpretation Comme nts Total Creatine Kinase (test code = 2157-6) 197 26-308 [facility] [id number] 18:45:00* Test Item Value Reference Range Interpretation Comme nts Troponin I High Sensitivity (test code = 65959-3) 91 3-78 [facility] HospitalSerum or plasma C reactive protein measurement (mass/volume)2023-12-28 18:45:00* Test Item Value Reference Range Interpretation Comme nts C-Reactive Protein, Quantita tive (test code = 1988-5) 0.2 0.0-0.9 [facility] blood monocytes/100 leukocytes 2023-12-28 18:45:00* Test Item Value Reference Range Interpretation Comme nts Monocytes % (Manual) (test c ode = 744-3) 5.0 1-15 [facility] blood variant lymphocytes as percentage of [id number] 18:45:00* Test Item Value Reference Range Interpretation Comme nts Atypical Lymphocytes % (test code = 735-1) 1.0 0-0 [facility] blood monocytes/100 leukocytes 2023-12-28 18:45:00* Test Item Value Reference Range Interpretation Comme nts Monocytes % (Manual) (test c ode = 744-3) 5.0 1-15 [facility] blood variant lymphocytes as percentage of [id number] 18:45:00* Test Item Value Reference Range Interpretation Comme nts Atypical Lymphocytes % (test code = 735-1) 1.0 0-0 [facility] prothrombin [id number] 18:45:00* Test Item Value Reference Range Interpretation Comme nts Prothrombin Time (test code = 5964-2) 11.0 10.4-13.2 [facility] HospitalINR in Platelet poor plasma by Coagulation [id number] 18:45:00* Test Item Value Reference Range Interpretation Comme nts Prothromb Time International Ratio (test code = 6301-6) 1.0 0.9-1.1 [facility] thromboplastin time (PTT) in platelet poor [id number] 18:45:00* Test Item Value Reference Range Interpretation Comme [facility] Activated Partial Thrombopla st Time (test code = 54254-3) 28.4 25.2-38.7 [facility] HospitalSerum or plasma magnesium measurement (mass/volume)2023-12-28 18:45:00* Test Item Value Reference Range Interpretation Comme nts Magnesium Level (test code = 48397-3) 1.6 1.8-2.4 [facility] HospitalSerum or plasma total bilirubin measurement (mass/volume)2023-12-28 18:45:00* Test Item Value Reference Range Interpretation Comme [facility] Total Bilirubin (test code = 1975-2) 1.3 0.0-1.0 [facility] aspartate aminotransferase measurement (enzymatic activity/volume)2023-12-28 18:45:00* Test Item Value Reference Range Interpretation Comme nts Aspartate Amino Transf (AST/ SGOT) (test code = 1920-8) 22 15-37 [facility] HospitalSerum or plasma alanine aminotransferase measurement (enzymatic activity/volume)2023-12-28 18:45:00* Test Item Value Reference Range Interpretation Comme nts Alanine Aminotransferase (AL T/SGPT) (test code = 1742-6) 49 12-78 [facility] protein measurement (mass/volume)2023-12-28 18:45:00* Test Item Value Reference Range Interpretation Comme [facility] Total Protein (test code = 2885-2) 8.6 6.4-8.2 [facility] HospitalSerum or plasma albumin measurement (mass/volume)2023-12-28 18:45:00* Test Item Value Reference Range Interpretation Comme [facility] Albumin (test code = 1751-7) 4.3 3.4-5.0 [facility] glob[facility] by calculation (mass/volume)2023-12-28 18:45:00* Test Item Value Reference Range Interpretation Comme [facility] Globulin (test code = 85309-8) 4.3 2.3-3.5 [facility] HospitalSerum or plasma albumin/globulin mass ratio 2023-12-28 18:45:00* Test Item Value Reference Range Interpretation Comme [facility] Albumin/Globulin Ratio (test code = 1759-0) 1.000 1.1-1.8 [facility] HospitalSerum or plasma alkaline phosphatase measurement (enzymatic activity/volume)2023-12-28 18:45:00* Test Item Value Reference Range Interpretation Comme [facility] Alkaline Phosphatase (test c ode = 6768-6) 79 46-116 [facility] lipase measurement (enzymatic activity/volume)2023-12-28 18:45:00* Test Item Value Reference Range Interpretation Comme [facility] Lipase (test code = 3040-3) 33 16-77 [facility] OrleansCBC with [id number] 04:00:10* Test Item Value Reference Range Interpretation Comme [facility] WBC (test code = 6690-2) 12.95 See_Comment H [Automated messa ge] The system which generated this result transmitted reference range: 4.20 - 10.70 10*3/?L. The reference range was not used to interpret this result as normal/abnormal. RBC (test code = 789-8) 4.85 See_Comment [Automated messa ge] The system which generated this result transmitted reference range: 4.26 - 5.52 10*6/?L. The reference range was not used to interpret this result as normal/abnormal. HGB (test code = 718-7) 16.2 g/dL 12.2-16.4 HCT (test code = 4544-3) 43.3 % 38.4-49.3 MCV (test code = 787-2) 89.3 fL 81.7-95.6 MCH (test code = 785-6) 33.4 pg 26.1-32.7 H MCHC (test code = 786-4) 37.4 g/dL 31.2-35.0 H RDW-SD (test code = 31229-9) 39.8 fL 38.5-51.6 RDW-CV (test code = 788-0) 12.1 % 12.1-15.4 PLT (test code = 777-3) 298 See_Comment [Automated EqsQuesta ge] The system which generated this result transmitted reference range: 150 - 328 10*3/?L. The reference range was not used to interpret this result as normal/abnormal. MPV (test code = 22887-0) 9.5 fL 9.8-13.0 L NRBC/100 WBC (test code = 3430634197) 0.0 See_Comment [Automated [employer] ssage] The system which generated this result transmitted reference range: 0.0 - 10.0 /100 WBCs. The reference range was not used to interpret this result as normal/abnormal. NRBC x10^3 (test code = 0662379806) See_Comment [Automated EqsQuesta ge] The system which generated this result transmitted reference range: 10*3/?L. The reference range was not used to interpret this result as normal/abnormal. GRAN MAT (NEUT) % (test code = 770-8) 54.6 % IMM GRAN % (test code = 9517709615) 1.30 % LYMPH % (test code = 736-9) 33.9 % MONO % (test code = 5905-5) 9.0 % EOS % (test code = 713-8) 0.5 % BASO % (test code = 706-2) 0.7 % GRAN MAT x10^3(ANC) (test code = 8904889425) 7.06 10*3/uL 1.99-6.95 H IMM GRAN x10^3 (test code = 2844398754) 0.17 10*3/uL 0.00-0.06 H LYMPH x10^3 (test code = 731-0) 4.39 10*3/uL 1.09-3.23 H MONO x10^3 (test code = 742-7) 1.17 10*3/uL 0.36-1.02 H EOS x10^3 (test code = 711-2) 0.07 10*3/uL 0.06-0.53 BASO x10^3 (test code = 704-7) 0.09 10*3/uL 0.01-0.09 LG GRAN LYMPHS (test code = 8571436018) Rare Rare REACT LYMPHS (test code = 8923860334) Rare Lab Interpretation (test code = 62929-8) Abnormal [facility] [id number] 03:29:35* Test Item Value Reference Range Interpretation Comme nts TROPONIN I (test code = 3645490375) 0.008 ng/mL <=0.034 DAVDI (test code = DAVID) Reference (Normal) Range [...] patient's use of biotin. Lab Interpretation (test code = 88506-6) Normal [facility] CampusN-TERMINAL [id number] 03:26:34* Test Item Value Reference Range Interpretation Comme nts NT-proBNP (test code = 2694485814) 440 pg/mL <=125 H DAVID (test code = DAVID) Biotin has been reported to cause a negative bias, interpret results relative to patient's use of biotin. Lab Interpretation (test code = 80013-4) Abnormal [facility]COMP Metabolic Panel (54550)2023-02-19 03:17:30* Test Item Value Reference Range Interpretation Comme nts NA (test code = 5085038063) 136 mmol/L 135-145 K (test code = 8558948006) 3.9 mmol/L 3.5-5.0 CL (test code = 3555098560) 104 mmol/L 98-108 CO2 TOTAL (test code = 9994961572) 21 mmol/L 23-31 L AGAP (test code = 9379406975) 11 2-16 BUN (test code = 7948120517) 17 mg/dL 7-23 GLUCOSE (test code = 2112792550) 117 mg/dL 70-110 H CREATININE (test code = 5228058069) 0.92 mg/dL 0.60-1.25 TOTAL BILI (test code = 3540478020) 1.4 mg/dL 0.1-1.1 H CALCIUM (test code = 8678618863) 10.1 mg/dL 8.6-10.6 T PROTEIN (test code = 7748911496) 8.0 g/dL 6.3-8.2 ALBUMIN (test code = 2139524853) 4.7 g/dL 3.5-5.0 ALK PHOS (test code = 9505145515) 72 U/L 34-122 ALTv (test code = 1742-6) 73 U/L 5-50 H AST(SGOT) (test code = 2671846476) 63 U/L 13-40 H eGFR (test code = 7805684369) 81.8 mL/min/1.73m2 DAVID (test code = DAVID) Association of [...] or abnormalities in imaging tests). Lab Interpretation (test code = 04013-4) Abnormal [facility] CampusLipase [id number] 03:17:30* Test Item Value Reference Range Interpretation Comme nts LIPASE (test code = 3462269611) 112 U/L 0-220 Lab Interpretation (test cod e = 04674-7) Normal [facility] Notes Date/Time Note Provider Source 2024-06-04 18:57:33 [facility]2024-09-17 18:57:33* Kaycee Wilkinson MD - 06/04/2024 9:00 AM CDT History of Present Illness HPI Last seen 2022, Brain MRI atrophy, chronic ischemia. Chronic back pain, has pain management evaluation pending. Paresthesias in the feet, on Gabapentin. Anxiety gets very anxious, has to move around. Was in the ER for pain and anxiety, labs reviewed. Allergies as of 06/04/2024 (No Known Allergies) has a current medication list which includes the following prescription(s): amlodipine, atorvastatin, diclofenac, gabapentin, lisinopril, lorazepam, methocarbamol, methylprednisolone, and pantoprazole. Vitals:06/04/24 0905 BP: 121/65 Resp: 16 SpO2: 96% Neurological Exam Mental Status Awake and alert. Speech is normal. Cranial NervesCN II: Visual acuity is normal. CN III, IV, : Extraocular movements intact bilaterally. Pupils equal round and reactive to light bilaterally. CN VII: Full and symmetric facial movement. CN XII: Tongue midline without atrophy or fasciculations. MotorStrength is 5/5 throughout all four extremities. Increased psychomotor activity, very restless. SensoryLight touch is normal in upper and lower extremities. Temperature is normal in upper and lower extremities. Vibration is normal in upper and lower extremities. ReflexesDeep tendon reflexes: Symmetric. GaitCasual gait is normal including stance, stride, and arm swing. No results found for this or any previous visit. No MRI head results found for the past 12 months Assessment/PlanDiagnoses and all orders for this visit: Memory loss Lumbar spondylosis Anxiety Add Zoloft for the anxiety. Risks, benefits, side effects reviewed with patient. He is going to see pain management for the chronic back pain. recent labs reviewed. Time: 35 minutes [facility] HospitalZjxzauv4456-74-08 18:57:33Upcoming Encounters Health Maintenance Due Date Last Done Comments CT Colonography 1955 Colonoscopy 1955 Colorectal Cancer Screening 1955 FIT-DNA 1954 FIT 1955 FOBT 1955 Lipid Panel 1955 Medicare Annual Wellness (AWV) 1955 Sigmoidoscopy 1954 DTaP/Tdap/Td Vaccines (1 - Tdap) 1973 Zoster Vaccines (1 of 2) 2004 Respiratory Syncytial Virus (RSV) or >=60 (1 - 1-dose 60+ series) 2014 Pneumococcal Vaccine: 65+ Ye ars (1 of 1 - PCV) 2019 Influenza Vaccine (#1) 2024 HIB Vaccines Aged Out No longer eligi ble based on patient's age to complete this topic HPV Vaccines Aged Out No longer eligi ble based on patient's age to complete this topic Hepatitis A Vaccines Aged Out No long er eligible based on patient's age to complete this topic Hepatitis B Vaccines Aged Out No long er eligible based on patient's age to complete this topic IPV Vaccines Aged Out No longer eligi ble based on patient's age to complete this topic Meningococcal Vaccine Aged Out No mahesh werner eligible based on patient's age to complete this topic Rotavirus Vaccines Aged Out No longer eligible based on patient's age to complete this topic [facility] HospitalUgvrgtx9249-13-41 18:57:33 Diagnosis Memory loss - Primary Lumbar spondylosis Lumbosacral spondylosis without myelopathy Anxiety Anxiety state, unspecified [facility] HospitalJlynibx3543-47-65 18:57:33 [facility]"
[2024-06-29] MEDS ORDERED: DIPHENHYDRAMINE 50 MG/ML VIAL ONE (18:28)
[2024-06-29] MEDS ORDERED: droPERidol 5 MG/2 ML VIAL ONE (18:28)
[2024-06-29 18:39] LABS: Absolute Basophils 0.1 K/uL (0-0.5); Absolute Eosinophils 0.1 K/uL (0-0.5); Absolute Lymphocytes (CBC) 4.8 K/uL (0.7-4.9); Basophils % 0.8 % (0-1.3); Eosinophils % 0.9 % (0-4.4); Hematocrit 42.3 % (39.6-49.0); MCH 33.5 pg (27.0-35.0); MCHC 35.5 g/dL (32.0-36.0); MCV 94.3 fL (80-100); MPV 7.1 fL (7.6-11.3); Neutrophils % 50.3 % (41.7-73.7); Nucleated Red Blood Cells % 0.1 % (0-0); Platelets 345 thou/uL (152-406); RBC Red Blood Cell Count 4.49 M/uL (4.33-5.43); Red Cell Distribution Width 13.3 % (12.1-15.2)
[2024-06-29 18:42] LABS: PT Prothrombin Time 10.7 SECONDS (9.4-12.5); Protime INR 0.95
[2024-06-29 18:54] LABS: Anion Gap 12.8 mEq/L (5.0-15.0); Potassium 3.8 mEq/L (3.5-5.1); Troponin High Sensitivity 6.9 pg/mL (<58.9)
--- NOTE | 2024-06-29 18:56 | RAD REPORT ---
EXAMINATION: ONE VIEW CHEST XR CLINICAL INDICATION: CHEST PAIN TECHNIQUE: Frontal chest projection is submitted. Examination is limited by patient positioning and t echnique. COMPARISON: 06/04/2024 FINDINGS: The lungs are well inflated and clear. The heart is upper limit of normal in size. No displaced fract ures identified. IMPRESSION: No acute intrathoracic abnormalities.
[2024-06-29] MEDS ORDERED: NITROGLYCERIN 0.4 MG/TAB SL ONE (19:54)
--- NOTE | 2024-06-29 20:44 | EDPHYS ---
Physician Documentation [facility] Name: Lanre Clifton Jr Age: 69 yrs Sex: Male : 1955 Arrival Date: 06/29/2024 Time: 18:14 Bed 5 Private MD: ED Physician Nino Espana HPI: 06/29 18:28 This 69 yrs old Male presents to ER via Ambulatory with complaints of Chest ec2 Pain. 18:28 Patient with history of dementia, history of anxiety as well as hypertension ec2 hyperlipidemia arrives today for evaluation of reported chest pain. Patient with reported chest pain, onset approximately 1 hour ago. Patient reports no difficulty breathing, no nausea or vomiting. is concerned that this is likely anxiety, and is on benzodiazepine at home however has recently run out of this. Occasionally smokes marijuana. . Historical: - Allergies: 18:22 No Known Allergies; aa5 - PMHx: 18:22 chronic back pain; Dementia; Hypercholesterolemia; Hypertensive disorder; aa5 - Immunization history:: Adult Immunizations unknown. - Infectious Disease History:: Denies. - Social history:: Smoking status: Patient denies any tobacco usage or history of. Patient uses street drugs, marijuana. ROS: 18:28 Constitutional: as per hpi ec2 Exam: 18:28 Constitutional: GEN: NAD Head: atraumatic Eyes: EOMI Ears: External ears are ec2 normal. CV: Tachycardia LUNGS: no respiratory distress, no wheezes, no rales, no rhonchi ABD: non-distended SKIN: no evidence of rashes MSK: no evidence of trauma. Psych: Anxious individual was otherwise cooperative Vital Signs: 18:17 BP 139 / 104; Pulse 106; Resp 18 S; Temp 98(TE); Pulse Ox 100% on R/A; aa5 18:37 BP 158 / 103; Pulse 112; Resp 18; Pulse Ox 100% on R/A; mb9 18:44 BP 158 / 103; Pulse 91; ec2 19:10 BP 160 / 87; Pulse 96; Resp 17; Temp 98; Pulse Ox 97% ; Pain 8/10; bm8 20:36 BP 116 / 63; Pulse 68; Resp 15; Temp 98; Pulse Ox 96% ; Pain 6/10; bm8 22:06 BP 131 / 80; Pulse 71; Resp 12; Temp 98; Pulse Ox 96% on R/A; Pain 5/10; bm8 19:10 Pain Scale: Adult bm8 20:36 Pain Scale: Adult bm8 22:06 Pain Scale: Adult bm8 Marcellus Coma Score: 19:10 Eye Response: spontaneous(4). Motor Response: obeys commands(6). Verbal Response: bm8 oriented(5). Total: 15. 20:36 Eye Response: spontaneous(4). Motor Response: obeys commands(6). Verbal Response: bm8 oriented(5). Total: 15. 22:06 Eye Response: spontaneous(4). Motor Response: obeys commands(6). Verbal Response: bm8 oriented(5). Total: 15. MDM: 18:28 Data reviewed: vital signs. ED course: Patient arrives today for evaluation of reported ec2 chest pain. Examination remarkable for anxious individual was otherwise slightly tachycardic. EKG obtained, independently reviewed and interpreted by me, shows normal sinus rhythm, rate 93, PVC noted, no acute ST segment elevations, intervals are nonactionable. . 18:54 Patient medically screened. sb4 19:29 Patient medically screened. sb4 22:32 ED course: patient states that his pain improved significantly after nitroglycerin. sb4 will admit for observation for further cardiac evaluation. 06/29 18:19 Order name: Basic Metabolic Panel; Complete Time: 18:54 ec2 06/29 18:19 Order name: CBC with Diff; Complete Time: 18:44 ec2 06/29 18:19 Order name: NT PRO-BNP; Complete Time: 18:54 ec2 06/29 18:19 Order name: PT-INR; Complete Time: 18:44 ec2 06/29 18:19 Order name: Troponin HS; Complete Time: 18:54 ec2 06/29 20:58 Order name: Troponin High Sensitivity; Complete Time: 21:36 bm8 06/29 21:25 Order name: Urinalysis w/ reflexes EDMS 06/29 21:25 Order name: Lipid Profile EDMS 06/29 21:25 Order name: Lipid Profile EDMS 06/29 21:25 Order name: Troponin High Sensitivity EDMS 06/29 21:25 Order name: Troponin High Sensitivity EDMS 06/29 21:25 Order name: Troponin High Sensitivity EDMS 06/29 21:25 Order name: Troponin High Sensitivity EDMS 06/29 21:25 Order name: Troponin High Sensitivity EDMS 06/29 21:25 Order name: Hemoglobin A1c EDMS 06/29 18:19 Order name: XRAY Chest (1 view); Complete Time: 18:58 ec2 06/29 21:25 Order name: Echo with Doppler EDMS 06/29 18:19 Order name: EKG; Complete Time: 18:20 ec2 06/29 21:25 Order name: CONS Physician Consult EDIL 06/29 18:19 Order name: Cardiac monitoring; Complete Time: 18:37 ec2 06/29 18:19 Order name: EKG - Nurse/Tech; Complete Time: 18:37 ec2 06/29 18:19 Order name: IV Saline Lock; Complete Time: 18:37 ec2 06/29 18:19 Order name: Labs collected and sent; Complete Time: 18:37 ec2 06/29 18:19 Order name: O2 Per Protocol; Complete Time: 18:37 ec2 06/29 18:19 Order name: O2 Sat Monitoring; Complete Time: 18:37 ec2 06/29 18:55 Order name: Misc. Order: repeat trop and ekg at 2100; Complete Time: 20:59 sb4 EC:20 Rate is 74 beats/min. Rhythm is regular, Normal Sinus Rhythm. DC interval is normal at sb4 114 msec. QRS interval is normal at 88 msec. QT interval is normal at 388 msec. No Q waves. T waves are Normal. No ST changes noted. Clinical impression: Normal ECG and No evidence of ischemia. Interpreted by me. Reviewed by me. Administered Medications: 18:28 Drug: Droperidol IVP 2.5 mg IVP once Route: IVP; Site: right forearm; mb9 18:57 Follow up: Response: No adverse reaction mb9 18:30 Drug: diphenhydrAMINE IVP 50 mg IVP once Route: IVP; Site: right forearm; mb9 18:57 Follow up: Response: No adverse reaction mb9 20:01 Drug: Nitroglycerin Sublingual 0.4 mg Sublingual once Route: Sublingual; bm8 20:38 Follow up: Response: No adverse reaction bm8 Disposition Summary: 06/29/24 20:43 Hospitalization Ordered Notes: Hospitalization Status: Observation sb4 Provider: Buzombo, Ronni sb4 Location: Telemetry/MedSurg (observation) sb4 Condition: Fair sb4 Problem: new sb4 Symptoms: have improved sb4 Bed/Room Type: Standard sb4 Room Assignment: 213(06/29/24 21:47) vk Diagnosis - Chest pain, unspecified sb4 Forms: - Medication Reconciliation Form sb4 - SBAR form sb4 - Leadership Thank You Letter sb4 Addendum: 07/01/2024 09:23 I reviewed the patient's care provided by Advanced Practice Provider \T\ agree w/ the ec2 diagnosis \T\ care plan. I personally saw the pt \T\ performed a substantive portion of t he visit, incldng all aspects of the (History/Exam/Medical Decision Making). Signatures: Dispatcher [employer] EDMagalie Ladd, RN RN aa5 Emerita Clifton, PA-C PA-C sb4 Claudia Stanley RN RN mb9 Nino Espana MD MD ec2 Tiarra Raymond Brad RN RN bm8 Corrections: (The following items were deleted from the chart) 06/29 18:20 18:20 BASIC METABOLIC PANEL+C.LAB.BRZ ordered. EDMS EDMS 18:20 18:20 CBC+H.LAB.BRZ ordered. EDMS EDMS 18:20 18:20 PROBNP+C.LAB.BRZ ordered. EDMS EDMS 18:20 18:20 PROTIME (+INR)+COAG.LAB.BRZ ordered. EDMS EDMS 18:20 18:20 Troponin High Sensitivity+C.LAB.BRZ ordered. EDMS EDMS 20:59 20:59 Troponin High Sensitivity+C.LAB.BRZ ordered. EDMS EDMS 21:47 20:43 sb4 vk
--- NOTE | 2024-06-29 20:44 | ER ---
Nurse's Notes [facility] Name: Lanre Clifton Jr Age: 69 yrs Sex: Male : 1955 Arrival Date: 06/29/2024 Time: 18:14 Bed 5 Private MD: Diagnosis: Chest pain, unspecified Presentation: 06/29 18:17 Chief complaint: Patient states: chest pain that began today, pt's states "I think aa5 he is having an anxiety attack". Pt restless in triage and dry heaving. 18:17 Coronavirus screen: At this time, the client does not indicate any symptoms associated aa5 with coronavirus-19. Ebola Screen: Patient denies travel to an Ebola-affected area in the 21 days before illness onset. Initial Sepsis Screen: Does the patient meet any 2 criteria? No. Patient's initial sepsis screen is negative. Does the patient have a suspected source of infection? No. Patient's initial sepsis screen is negative. Risk Assessment: Do you want to hurt yourself or someone else? Patient reports no desire to harm self or others. Onset of symptoms was June 2024. 18:17 Acuity: INGRID 3 aa5 18:17 Method Of Arrival: Ambulatory aa5 Historical: - Allergies: 18:22 No Known Allergies; aa5 - PMHx: 18:22 chronic back pain; Dementia; Hypercholesterolemia; Hypertensive disorder; aa5 - Immunization history:: Adult Immunizations unknown. - Infectious Disease History:: Denies. - Social history:: Smoking status: Patient denies any tobacco usage or history of. Patient uses street drugs, marijuana. Screenin:34 [facility] ED Fall Risk Assessment (Adult) History of falling in the last 3 months, mb9 including since admission No falls in past 3 months (0 pts) Confusion or Disorientation No (0 pts) Intoxicated or Sedated No (0 pts) Impaired Gait No (0 pts) Mobility Assist Device Used No (0 pt) Altered Elimination No (0 pt) Score/Fall Risk Level 0 - 2 = Low Risk Oriented to surroundings, Maintained a safe environment, Educated pt \\T\\ family on fall prevention, incl call for assistance when getting out of bed. Abuse screen: Denies threats or abuse. Nutritional screening: No deficits noted. Tuberculosis screening: No symptoms or risk factors identified. Assessment: 18:33 General: Appears uncomfortable, Behavior is anxious. Pain: Complains of pain in chest mb9 Pain does not radiate. Pain currently is 10 out of 10 on a pain scale. Quality of pain is described as pressure, throbbing, Pain began suddenly, Is continuous. Neuro: Agrawal Agitation-Sedation Scale (RASS): 0 - Alert and Calm Level of Consciousness is awake, alert, obeys commands, Oriented to person, place, time, situation, Appropriate for age. Cardiovascular: Reports chest pain, Heart tones S1 S2 present Patient's skin is warm and dry. Rhythm is sinus tachycardia. Respiratory: Airway is patent Respiratory effort is even, unlabored, Respiratory pattern is regular, symmetrical. GI: Abdomen is round non-distended, Pt is actively vomiting undigested food, Bowel sounds present X 4 quads. Abd is soft and non tender X 4 quads. : No signs and/or symptoms were reported regarding the genitourinary system. EENT: No signs and/or symptoms were reported regarding the EENT system. Derm: Skin is pink, warm \\T\\ dry. Musculoskeletal: Range of motion: intact in all extremities. 19:09 Reassessment: Patient appears in no apparent distress at this time. Patient and/or bm8 family updated on plan of care and expected duration. Pain level reassessed. Patient is alert, oriented x 3, equal unlabored respirations, skin warm/dry/pink. Cardiovascular: Reports chest pain, Heart tones S1 S2 present Capillary refill < 3 seconds in bilateral fingers Patient's skin is warm and dry. Rhythm is sinus rhythm. Respiratory: Airway is patent Respiratory effort is even, unlabored, Respiratory pattern is regular, symmetrical, Breath sounds are clear bilaterally. 19:10 Pain: Complains of pain in diaphragm, xiphoid area and mid-sternal area Pain currently bm8 is 8 out of 10 on a pain scale. 20:36 Reassessment: Patient appears in no apparent distress at this time. Patient and/or bm8 family updated on plan of care and expected duration. Pain level reassessed. Patient is alert, oriented x 3, equal unlabored respirations, skin warm/dry/pink. Patient states feeling better. Patient states symptoms have improved. Cardiovascular: Reports chest pain, rate pain 6/10 states much better. 22:06 Reassessment: Patient appears in no apparent distress at this time. No changes from bm8 previously documented assessment. Patient and/or family updated on plan of care and expected duration. Pain level reassessed. Patient is alert, oriented x 3, equal unlabored respirations, skin warm/dry/pink. Patient states feeling better. Patient states symptoms have improved. Vital Signs: 18:17 BP 139 / 104; Pulse 106; Resp 18 S; Temp 98(TE); Pulse Ox 100% on R/A; aa5 18:37 BP 158 / 103; Pulse 112; Resp 18; Pulse Ox 100% on R/A; mb9 18:44 BP 158 / 103; Pulse 91; ec2 19:10 BP 160 / 87; Pulse 96; Resp 17; Temp 98; Pulse Ox 97% ; Pain 8/10; bm8 20:36 BP 116 / 63; Pulse 68; Resp 15; Temp 98; Pulse Ox 96% ; Pain 6/10; bm8 22:06 BP 131 / 80; Pulse 71; Resp 12; Temp 98; Pulse Ox 96% on R/A; Pain 5/10; bm8 19:10 Pain Scale: Adult bm8 20:36 Pain Scale: Adult bm8 22:06 Pain Scale: Adult bm8 Vee Coma Score: 19:10 Eye Response: spontaneous(4). Motor Response: obeys commands(6). Verbal Response: bm8 oriented(5). Total: 15. 20:36 Eye Response: spontaneous(4). Motor Response: obeys commands(6). Verbal Response: bm8 oriented(5). Total: 15. 22:06 Eye Response: spontaneous(4). Motor Response: obeys commands(6). Verbal Response: bm8 oriented(5). Total: 15. ED Course: 18:17 Patient arrived in ED. sb4 18:17 Arm band placed on Patient placed in an exam room, on a stretcher. aa5 18:19 Nino Espana MD is Attending Physician. ec2 18:21 Claudia Stanley RN is Primary Nurse. viviana 18:24 Triage completed. aa5 18:32 Initial lab(s) drawn, by me, sent to lab. EKG done, by ED staff, reviewed by Nino Espana MD. Inserted saline lock: 20 gauge in right forearm, using aseptic technique. Blood collected. Flushed with 10 mL NS. 18:34 Bed in low position. Call light in reach. Side rails up X 1. Provided Education on: mb9 press call light if needing anything. Client placed on continuous cardiac and pulse oximetry monitoring. NIBP monitoring applied. campus monitor on. 18:34 No provider procedures requiring assistance completed. mb9 18:53 XRAY Chest (1 view) In Process Unspecified. EDMS 18:54 Emerita Clifton PA-C is PHCP. sb4 19:10 Report received from Claudia Isaacs RN. bm8 20:36 Door closed. Noise minimized. Visitors limited. Lights dimmed. Warm blanket given. bm8 Verbal reassurance given. Head of bed elevated. 20:36 Patient maintains SpO2 saturation greater than 95% on room air. bm8 20:43 Prince Sutherland MD is Hospitalizing Provider. sb4 21:18 EKG done, by ED staff, reviewed by Emerita Clifton PA-C. oe 22:06 Provided Education on: need for admission. bm8 22:06 Patient admitted, IV remains in place. bm8 Administered Medications: 18:28 Drug: Droperidol IVP 2.5 mg IVP once Route: IVP; Site: right forearm; mb9 18:57 Follow up: Response: No adverse reaction mb9 18:30 Drug: diphenhydrAMINE IVP 50 mg IVP once Route: IVP; Site: right forearm; mb9 18:57 Follow up: Response: No adverse reaction mb9 20:01 Drug: Nitroglycerin Sublingual 0.4 mg Sublingual once Route: Sublingual; bm8 20:38 Follow up: Response: No adverse reaction bm8 Medication: 18:34 VIS not applicable for this client. mb9 Outcome: 20:43 Decision to Hospitalize by Provider. sb4 22:06 Admitted to Med/surg accompanied by nurse, via wheelchair, room 213, with chart, bm8 22:06 Condition: stable 22:06 Instructed on the need for admit, Demonstrated understanding of instructions, follow-up care, medications, 22:53 Patient left the ED. bm8 Signatures: Dispatcher [employer] EDMS Magalie Mcpherson RN RN aa5 Parrish Bustillo oe Emerita Clifton PA-C PA-C sb4 Claudia Stanley RN RN mb9 Nino Espana MD MD ec2 Graham Gaytan, JERAD RN bm8
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
[2024-06-29 23:00] VITALS: BMI 28.9
[2024-06-29] MEDS: ATORVASTATIN 80 MG TAB PO SCH (23:13)
[2024-06-29] MEDS: ALBUTEROL 2.5 MG/3 ML NEB SOL NEB SCH (23:15)
[2024-06-29] MEDS: IPRATROPIUM BROM 0.5MG/2.5ML NEB SCH (23:15)
[2024-06-30] MEDS: NITROGLYCERIN 0.4 MG/TAB SL PRN (01:40)
[2024-06-30 05:26] LABS: Absolute Eosinophils 0.1 K/uL (0-0.5); Absolute Lymphocytes (CBC) 3.3 K/uL (0.7-4.9); Absolute Monocytes 0.7 K/uL (0.1-1.3); Basophils % 0.4 % (0-1.3); Eosinophils % 0.8 % (0-4.4); Hematocrit 38.4 % (39.6-49.0); Hemoglobin 13.6 g/dL (13.6-17.9); Lymphocytes % 36.4 % (15.3-44.8); MCH 33.7 pg (27.0-35.0); MCHC 35.4 g/dL (32.0-36.0); MCV 95.2 fL (80-100); Monocytes % 7.6 % (3.3-12.3); Neutrophils % 54.8 % (41.7-73.7); Nucleated Red Blood Cells % 0.3 % (0-0); Platelets 280 thou/uL (152-406); RBC Red Blood Cell Count 4.04 M/uL (4.33-5.43); Red Cell Distribution Width 13.1 % (12.1-15.2)
[2024-06-30 05:37] LABS: Specific Gravity 1.028 (1.005-1.030); Sqamous Epithelial <5 /HPF (None Seen); Urine Bacteria None Seen /HPF (<20); Urine Bilirubin NEGATIVE (Negative); Urine Blood Negative (Negative); Urine Clarity Clear (Clear); Urine Color Yellow (Yellow); Urine Crystals Unidentified Few /HPF (None Seen); Urine Culture Reflex Order REFLEXED; Urine Glucose NEGATIVE (Negative); Urine Ketones NEGATIVE (Negative); Urine Microscopic Reflex YN ORDER UMIC; Urine Mucus Slight /HPF (None Seen); Urine Nitrite NEGATIVE (Negative); Urine Protein TRACE (Negative); Urine RBC <5 /HPF (None Seen); Urine Urobilinogen 2+ (Normal); Urine WBC 20-50 /HPF (<5); Urine pH 6.5 (5.0-7.0)
[2024-06-30 05:50] LABS: Anion Gap 7.4 mEq/L (5.0-15.0); Potassium 4.4 mEq/L (3.5-5.1); Troponin High Sensitivity 10.3 pg/mL (<58.9)
[2024-06-30 06:09] LABS: Magnesium 2.1 mg/dL (1.6-2.4); Phosphorus 2.5 mg/dL (2.5-4.9)
[2024-06-30] MEDS: ASPIRIN EC 81 MG TAB PO SCH (08:48)
[2024-06-30] MEDS: POTASS/SODIUM PHOSPHATE 1 PKT POWD.PACK PO SCH ×2 (08:48→10:33)
[2024-06-30] MEDS: PANTOPRAZOLE 40MG TABLET PO SCH (08:48)
[2024-06-30] MEDS: SERTRALINE HCL 50 MG TAB PO SCH (08:49)
[2024-06-30] MEDS: ENOXAPARIN 40 MG/0.4 ML SQ SCH (08:52)
--- NOTE | 2024-06-30 10:30 | P.PN ---
Date of Service: 06/30/24 Subjective: feeling better today denies any new / worsening problems ~9 am felt dizzy, lightheaded after getting up to bathroom. [place] better few minutes after laying back down around this time I was walking by nurse station where it appeared that his heart rate slowed down to 30-40s - by read, I was unable to see actual rhythm from that distance ROS: 10 point ROS as noted above, otherwise negative Physical Exam: GEN: Alert, oriented, NAD HEENT: Normal conjunctiva, sclera anicteric, CV: Regular rate and rhythm, no edema Pulm: Nonlabored respirations on room air, clear bilaterally ABD: soft, nontender, nondistended Neuro: Normal speech, normal affect Problem List: Unstable Angina Nausea/vomiting Hx Anxiety Hypertension Hyperlipidemia Chronic back pain Dementia Unstable Angina on admission, presents with chest discomfort associated with nausea/vomiting. concerning for unstable angina Reports occasionally feeling skipped beats at home. No edema or orthopnea. Denies Shortness of breath Initial EKG with some occasional PACs episode today with possible bradycardia, will confirm and obtain strips with telemetry may need event monitor CXR negative troponins negative x3 Cardiology consulted NPO at midnight for tentative [facility] tomorrow echo ordered to eval EF / stenosis check a1c, lipid panel continue asa, statin, PRN nitro Nausea/vomiting Hx Anxiety reports some nausea/vomiting/dry heaving in ER Has history of anxiety. concerned episode could be due to anxiety unclear etiology. Possibly related to anxiety vs undiagnosed arrhythmia On benzo at home. +occasionally smokes THC recently started sertraline ~1-2 months ago; resumed here Hypertension Hyperlipidemia Chronic back pain Dementia confirm home meds, restart as appropriate resume home statin, asa VTE: Lovenox Code: Full Dispo: Home, 1-2 days Pending cardiac recs - tentative [facility] tomorrow Time Spent Managing Pts Care (In Minutes): 51
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
[2024-07-01] MEDS: ZOLPIDEM TARTRATE 5 MG TABLET PO PRN (01:38)
[2024-07-01 05:40] LABS: Absolute Basophils 0.1 K/uL (0-0.5); Absolute Monocytes 0.6 K/uL (0.1-1.3); Absolute Neutrophil 5.6 K/uL (1.8-8.0); Basophils % 0.6 % (0-1.3); Eosinophils % 0.5 % (0-4.4); Hematocrit 38.7 % (39.6-49.0); Hemoglobin 13.2 g/dL (13.6-17.9); Lymphocytes % 31.8 % (15.3-44.8); MCH 32.9 pg (27.0-35.0); MCHC 34.2 g/dL (32.0-36.0); MCV 96.1 fL (80-100); MPV 7.6 fL (7.6-11.3); Monocytes % 6.8 % (3.3-12.3); Neutrophils % 60.3 % (41.7-73.7); Platelets 248 thou/uL (152-406); RBC Red Blood Cell Count 4.02 M/uL (4.33-5.43); Red Cell Distribution Width 13.4 % (12.1-15.2)
[2024-07-01 05:53] LABS: Anion Gap 5.6 mEq/L (5.0-15.0); Potassium 4.6 mEq/L (3.5-5.1)
[2024-07-01] MEDS: NA CHLORIDE 0.9% 500 ML ONE (09:02)
--- NOTE | 2024-07-01 09:33 | P.PN ---
Date of Service: 07/01/24 Subjective: had another episode last night where he felt lightheaded getting up to bathroom improved after laying back down for few minutes denies chest pain at the time of feeling lightheaded. Unsure what HR was at the time tentative plan for [facility] today ROS: 10 point ROS as noted above, otherwise negative Physical Exam: GEN: Alert, oriented, NAD CV: Regular rate and rhythm, no edema Pulm: Nonlabored respirations on room air, clear bilaterally ABD: soft, nontender, nondistended Neuro: Normal speech, normal affect Problem List: Unstable Angina Dizziness Nausea/vomiting, resolved Hx Anxiety Hypertension Hyperlipidemia Chronic back pain Dementia Unstable Angina Dizziness on admission, presents with chest discomfort associated with nausea/vomiting. concerning for unstable angina Reports occasionally feeling skipped beats at home. No edema or orthopnea. Denies Shortness of breath Initial EKG with some occasional PACs ; troponins negative x3, monitor on telemetry CXR negative strips reviewed, no bradycardia / arrhythmia patient felt lightheaded when getting up to bathroom during episodes. Improved after laying back down. may need event monitor Cardiology consulted NPO for [facility] today echo ordered to eval EF / stenosis continue asa, statin, PRN nitro Nausea/vomiting Hx Anxiety reports some nausea/vomiting/dry heaving in ER Has history of anxiety. concerned episode could be due to anxiety unclear etiology. Possibly related to anxiety vs undiagnosed arrhythmia On benzo at home. +occasionally smokes THC recently started sertraline ~1-2 months ago; resumed here Monitor on telemetry Hypertension Hyperlipidemia Chronic back pain Dementia confirm home meds, restart as appropriate resume home statin, asa VTE: Lovenox Code: Full Dispo: Home, ~1 day Pending [facility], cardiac recs Time Spent Managing Pts Care (In Minutes): 51
[2024-07-01] MEDS ORDERED: LIDOCAINE 1% 20 ML MDV ONE (10:11)
[2024-07-01] MEDS ORDERED: TICAGRELOR 90 MG TABLET PO ONE (10:11)
[2024-07-01] MEDS ORDERED: HEPARIN 10,000 UNIT/10 ML VIAL IV ONE (10:11)
[2024-07-01] MEDS ORDERED: ASPIRIN 325 MG TAB ONE (10:11)
[2024-07-01] MEDS ORDERED: HEPA 1000U/500MLS 2,000 UNIT/1,000 ML BAG IV ONE (10:11)
[2024-07-01] MEDS ORDERED: CLOPIDOGREL 75 MG TABLET ONE (10:11)
[2024-07-01] MEDS ORDERED: ATROPINE SULF 1 MG/10 ML SYR IV ONE (10:11)
[2024-07-01] MEDS ORDERED: HEPARIN 5000 UNIT/ML 1 ML VIAL ONE (10:11)
[2024-07-01] MEDS: MIDAZOLAM HCL 2 MG/2 ML INJ ONE (10:25)
[2024-07-01] MEDS: FENTANYL CITR 100 MCG/2 ML ONE (10:25)
--- NOTE | 2024-07-01 11:48 | P.PN ---
Subjective Date of Service: 07/01/24 Chief Complaint: chest pain, acs r/o Subjective: No new changes, No C/O voiced, Tolerating diet, Ambulating, Improving Review of Systems 10-point ROS is otherwise unremarkable Physical Examination - Vital Signs Temperature: 97.6 F Blood Pressure: 143/76 Pulse: 80 Respirations: 16 Pulse Ox (%): 97 - Physical Exam General: Alert, In no apparent distress HEENT: Atraumatic, PERRLA, EOMI Neck: Supple, JVD not distended Respiratory: Clear to auscultation bilaterally, Normal air movement Cardiovascular: Regular rate/rhythm, Normal S1 S2 Gastrointestinal: Normal bowel sounds, No tenderness Musculoskeletal: No tenderness Integumentary: No rashes Neurological: Normal speech, Normal tone, Normal affect Lymphatics: No axilla or inguinal lymphadenopathy - Studies Laboratory Data (last 24 hrs) 07/01/24 07/01/24 05:12 05:12 WBC 9.30 Hgb 13.2 L Hct 38.7 L Plt Count 248 Sodium 138 Potassium 4.6 BUN 20 H Creatinine 0.91 Glucose 119 H Magnesium 2.0 Medications List Reviewed: Yes Assessment And Plan - Current Problems (Diagnosis) (1) Chest pain Current Visit: No Status: Acute Plan: concern for unstable angina 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
[2024-07-01] MEDS: ONDANSETRON 4 MG/2 ML VIAL IV PRN (15:30)
[2024-07-01] MEDS: ACETAMINOPHEN 500 MG TAB PO PRN (15:43)
[2024-07-02 04:28] VITALS: TEMP 97.3
[2024-07-02] MEDS ORDERED: MORPHINE 2 MG/ML SYR IV PRN (05:21)
[2024-07-02] MEDS: HYDROCODONE/APAP 5/325 MG TAB PO PRN (05:32)
[2024-07-02 05:56] LABS: Absolute Eosinophils 0.2 K/uL (0-0.5); Absolute Lymphocytes (CBC) 2.9 K/uL (0.7-4.9); Absolute Monocytes 0.7 K/uL (0.1-1.3); Basophils % 0.4 % (0-1.3); Eosinophils % 2.3 % (0-4.4); Hematocrit 41.4 % (39.6-49.0); Hemoglobin 14.3 g/dL (13.6-17.9); Lymphocytes % 37.4 % (15.3-44.8); MCH 33.1 pg (27.0-35.0); MCHC 34.6 g/dL (32.0-36.0); MCV 95.7 fL (80-100); MPV 7.2 fL (7.6-11.3); Monocytes % 8.5 % (3.3-12.3); Neutrophils % 51.4 % (41.7-73.7); Nucleated Red Blood Cells % 0.1 % (0-0); Platelets 255 thou/uL (152-406); RBC Red Blood Cell Count 4.33 M/uL (4.33-5.43); Red Cell Distribution Width 13.2 % (12.1-15.2)
--- NOTE | 2024-07-02 06:42 | ECHO ---
HEIGHT: 5 ft 11 in WEIGHT: 207 lb 8 oz DATE OF STUDY: 07/01/[address]: Prince Patsy Sutherland MD 2-DIMENSIONAL: YES M.MODE: YES DOPPLER: YES COLOR FLOW: YES TDS: PORTABLE: YES DEFINITY: BUBBLE STUDY: DIAGNOSIS: RULE OUT ACUTE CORONARY SYNDROME CARDIAC HISTORY: CATHERIZATION: YES SURGERY: NO PROSTHETIC VALVE: NO PACEMAKER: NO MEASUREMENTS (cm) DIASTOLIC (NORMALS) SYSTOLIC (NORMALS) IVSd 1.0 (0.6-1.2) LA Diam 2.6 (1.9-4.0) LVEF 60-65% LVIDd 4.4 (3.5-5.7) LVIDs 2.9 (2.0-3.5) %FS 34% LVPWd 1.1 (0.6-1.2) Ao Diam 2.9 (2.0-3.7) 2 DIMENSIONAL ASSESSMENT: RIGHT ATRIUM: NORMAL LEFT ATRIUM: NORMAL RIGHT VENTRICLE: NORMAL LEFT VENTRICLE: NORMAL TRICUSPID VALVE: NORMAL MITRAL VALVE: TRACE MITRAL REGURGITATION PULMONIC VALVE: NORMAL AORTIC VALVE: NORMAL PERICARDIAL EFFUSION: NONE AORTIC ROOT: NORMAL LEFT VENTRICULAR WALL MOTION: NORMAL DOPPLER/COLOR FLOW: SEE BELOW COMMENTS: 1. NORMAL LEFT VENTRICULAR EJECTION FRACTION 60-65% WITH NORMAL WALL MOTION 2. TRACE MITRAL REGURGITATION 3. GRADE I DIASTOLIC DYSFUNCTION TECHNOLOGIST: BRENDEN GARCIA
--- NOTE | 2024-07-02 11:23 | P.PN ---
Subjective Date of Service: 07/02/24 Chief Complaint: chest pain, acs r/o Subjective: No new changes, No C/O voiced, Tolerating diet, Ambulating, Improving Review of Systems 10-point ROS is otherwise unremarkable Physical Examination - Vital Signs Temperature: 97.3 F Blood Pressure: 140/78 Pulse: 60 Respirations: 16 Pulse Ox (%): 95 - Physical Exam General: Alert, In no apparent distress HEENT: Atraumatic, PERRLA, EOMI Neck: Supple, JVD not distended Respiratory: Clear to auscultation bilaterally, Normal air movement Cardiovascular: Regular rate/rhythm, Normal S1 S2 Gastrointestinal: Normal bowel sounds, No tenderness Musculoskeletal: No tenderness Integumentary: No rashes Neurological: Normal speech, Normal tone, Normal affect Lymphatics: No axilla or inguinal lymphadenopathy - Studies Microbiology Data (last 24 hrs): 06/30/24 05:00 Clean Catch Urine [place] Count - Final >100,000 CFU/ML. 06/30/24 05:00 Clean Catch Urine - Final MIXED FELICITY. 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 Qualifiers:
--- NOTE | 2024-07-02 13:46 | P.DS ---
Admission Date: 07/01/24 Discharge Date: 07/02/24 Disposition: ROUTINE DISCHARGE Discharge Condition: FAIR Reason for Admission: chest pain, acs r/o Brief History of Present Illness: 69-year-old male with a past medical history of hypertension and hyperlipidemia presented to the ER via EMS for evaluation of chest pain. Patient described chest pain that started while he was lying in the couch watching TV, associated with nausea and vomiting. EMS was called. Chest pain was partially relieved by nitroglycerin. Patient was evaluated in the emergency department, initial troponin negative, chest x-ray unremarkable. Patient was hospitalized for further evaluation of the chest pain. Hospital Course: Diagnosis Unstable Angina Dizziness Nausea/vomiting, resolved Hx Anxiety Hypertension Hyperlipidemia Chronic back pain Dementia Patient presented with chest discomfort, intermittent sensation of feeling skipped beats. Chest xray was negative for any acute findings. Initial EKG noted some occasional PACs. Troponins were negative x4. Cardiology was consulted. Dr. Ohara performed left heart catheterization, patient noted to have multivessel disease. Cardiac bypass recommended by Dr. Ohara. Patient has been clinically stable, asymptomatic with stable vitals. Dr. Ohara is making arrangements for patient to follow-up with cardiothoracic surgeon. Patient experience some dizziness, however his blood pressure was unremarkable and he has not been orthostatic. No cardiac arrhythmia noted on tile trimmer. Patient deemed stable for discharge. Vital Signs/Physical Exam: Temp Pulse Resp BP Pulse Ox 97.3 F 60 16 140/78 95 07/02/24 11:23 07/02/24 11:23 07/02/24 11:23 07/02/24 11:23 07/02/24 11:23 General: Alert, In no apparent distress, Oriented x3 HEENT: Mucous membr. moist/pink, Sclerae nonicteric Neck: Supple, JVD not distended Respiratory: Clear to auscultation bilaterally, Normal air movement Cardiovascular: No edema, Regular rate/rhythm, Normal S1 S2 Gastrointestinal: Normal bowel sounds, Soft and benign, Non-distended, No tenderness Musculoskeletal: No swelling Integumentary: No rashes, No cyanosis Neurological: Normal strength at 5/5 x4 extr Laboratory Data at Discharge: WBC 7.80 thou/uL (4.3-10.9) 07/02/24 05:16 Hgb 14.3 g/dL (13.6-17.9) D 07/02/24 05:16 Hct 41.4 % (39.6-49.0) 07/02/24 05:16 Plt Count 255 thou/uL (152-406) 07/02/24 05:16 PT 10.7 SECONDS (9.4-12.5) 06/29/24 18:25 INR 0.95 06/29/24 18:25 Sodium 139 mEq/L (136-145) 07/02/24 05:16 Potassium 5.0 mEq/L (3.5-5.1) 07/02/24 05:16 BUN 20 mg/dL (7-18) H 07/02/24 05:16 Creatinine 1.00 mg/dL (0.70-1.30) 07/02/24 05:16 Glucose 107 mg/dL (74-106) H 07/02/24 05:16 Phosphorus 2.5 mg/dL (2.5-4.9) 06/30/24 04:58 Magnesium 2.0 mg/dL (1.6-2.4) 07/01/24 05:12 Triglycerides 110 mg/dL (<150) 06/30/24 04:58 Cholesterol 179 mg/dL (<200) 06/30/24 04:58 HDL Cholesterol 61 mg/dL (40-60) H 06/30/24 04:58 Cholesterol/HDL Ratio 2.93 06/30/24 04:58 Home Medications: Amlodipine [Norvasc*] 10 mg PO DAILY 07/01/24 Gabapentin 300 mg PO TID 07/01/24 Mv/Fe/FA/Om3/FSH/Lycop/Lut/Renetta [Multia Daily Multivitamin] 1 tab PO DAILY 07/01/24 Pantoprazole [Protonix Tab*] 40 mg PO DAILY 07/01/24 Sertraline [Zoloft*] 50 mg PO DAILY 07/01/24 Aspirin [Aspirin EC 81 MG] 81 mg PO DAILY #30 tab 07/02/24 Atorvastatin Calcium [Lipitor] 80 mg PO BEDTIME #30 tab 07/02/24 Metoprolol Tartrate [Lopressor*] 25 mg PO BID #60 tab 07/02/24 New Medications: Aspirin [Aspirin EC 81 MG] 81 mg PO DAILY #30 tab Atorvastatin Calcium [Lipitor] 80 mg PO BEDTIME #30 tab Metoprolol Tartrate [Lopressor*] 25 mg PO BID #60 tab Physician Discharge Instructions: Physician discharge instructions: Patient presented with chest discomfort, intermittent sensation of feeling skipped beats. Chest xray was negative for any acute findings. Initial EKG noted some occasional PACs. Troponins were negative x4. Cardiology was consulted. Dr. Ohara recommended left heart cath to further evaluate which noted Patient was feeling better, chest pain improved, and was deemed stable for discharge. Follow up: PCP 3-5 days Cardiology 2-4 weeks Please call to schedule / confirm appointments Diet: AHA Activity: Ad venecia Followup: Nathan Ohara MD [ACTIVE - CAN ADMIT] - 1-2 Weeks Alena Rose [Primary Care Provider] - 1-2 Weeks Time spent managing pt's care (in minutes): 36
[2024-07-02 14:05] VITALS: BP 140/76; O2SAT 96
--- NOTE | 2024-07-04 12:11 | EKG ---
Test Date: 2024-06-30 Test Time: 01:28:47 Elevator Serviceman: NATIG MEASUREMENT RESULTS: Intervals: Rate: 67 IN: 116 QRSD: 90 QT: 396 QTc: 418 [place]: P: 41 IN: 116 QRS: 58 T: 58 INTERPRETIVE STATEMENTS: Normal sinus rhythm Normal ECG Compared to ECG 06/29/2024 21:05:41 No significant changes Electronically Signed On 07-04-24 11:58:19 CDT by Nathan Ohara
--- NOTE | 2024-07-04 12:11 | EKG ---
Test Date: 2024-06-29 Test Time: 21:05:41 Director Of Donor Relations: LISSET MEASUREMENT RESULTS: Intervals: Rate: 74 NC: 114 QRSD: 88 QT: 388 QTc: 430 [place]: P: 41 NC: 114 QRS: 64 T: 54 INTERPRETIVE STATEMENTS: Normal sinus rhythm Normal ECG Compared to ECG 06/29/2024 18:28:52 Atrial premature complex(es) no longer present Short NC interval no longer present Aberrant conduction of supraventricular beat(s) no longer present ST (T wave) deviation no longer present Electronically Signed On 07-04-24 11:58:27 CDT by Nathan Ohara
--- NOTE | 2024-07-04 12:12 | EKG ---
Test Date: 2024-06-29 Test Time: 18:28:52 Cellophane Press Operator: DAVIS MEASUREMENT RESULTS: Intervals: Rate: 93 [place]: 110 QRSD: 84 QT: 346 QTc: 430 [place]: P: 45 [place]: 110 QRS: 60 T: 41 INTERPRETIVE STATEMENTS: Sinus rhythm with short [place] with premature atrial complexes with aberrant conduction Nonspecific ST abnormality Abnormal ECG Compared to ECG 06/04/2024 02:46:13 Atrial premature complex(es) now present Short [place] interval now present Aberrant conduction of supraventricular beat(s) now present ST (T wave) deviation now present Electronically Signed On 07-04-24 11:58:35 CDT by Nathan Ohara
--- NOTE | 2024-07-04 15:38 | OP ---
Date of Procedure: 07/01/2024 Surgeon: Nathan Ohara Procedures Performed: 1.Left heart catheterization. 2.Selective coronary angiogram. Indication For Procedure: Unstable angina. Complications: None. Estimated Blood Loss: Less than 50 cc. Access: Right radial, closed by TR band. Sedation Time: 20 minutes with 1 of Versed and 25 fentanyl. Description Of Procedure: After risks, benefits, and alternatives were explained to patient, the pat ient agreed to proceed with the procedure and signed informed consent. The patient was brought back to the dental lab technician, prepped and draped in a sterile fashion. Time-out was performed. Sedation was admi nistered. Next, the right radial access was obtained, [place] 4 catheter was advanced over J-wire to t he LV cavity. LVEDP was obtained. Pullback did not show any gradient. Same catheter was used for s elective angiogram of the left and right coronary systems. At the end of procedure, catheter was rem nancy over a J-wire. Sheath was removed. TR band was applied. Hemostasis was achieved and patient w as moved back to recovery in stable condition. Findings: 1.Left main: Normal. 2.LAD: Proximal mild luminal irregularities with mid diffuse 60% to 80% disease. There are mild jerson maria elena irregularities. 3.Diagonal 1: Proximal 70% disease with mild luminal irregularities. 4.Left circ: Mild luminal regularities. 5.OM1: Proximal focal 70% disease and mild luminal irregularities. 6.RCA: Dominant, tortuous with proximal to mid 70% disease and mild luminal irregularities. 7.RPDA: Mild lumen irregularities. Assessment And Plan: Significant left anterior descending, diagonal 1, OM, and right coronary artery disease. The plan will be to consult CT surgery as an outpatient for CABG evaluation. MARIPOSA/BLAKE Voice ID: [id number] Report ID: [id number]
== END 2024-07-02 15:00 | disposition home or self-care (01) | DRG 287 ==
LOC: ER 18:14 → ERHOLD 21:20 → 2ND 22:19 → INTOOBSV 07-01 11:15 → OBSVTOIN 07-01 11:15 → 2ND 07-01 14:09 → UNDODISIN 07-02 14:26
PROVIDERS: ADMIT Internal Medicine; ATTEND Internal Medicine
PROC: B2111ZZ Fluoroscopy of Multiple Coronary Arteries using Low Osmolar Contrast (ICD-10-PCS; principal; 2024-07-01)
PROC: 4A023N7 Measurement of Cardiac Sampling and Pressure, Left Heart, Percutaneous Approach (ICD-10-PCS; 2024-07-01)
DX: I25.110 Atherosclerotic heart disease of native coronary artery with unstable angina pectoris (principal); F41.9 Anxiety disorder, unspecified; I10 Essential (primary) hypertension; E78.00 Pure hypercholesterolemia, unspecified; I49.3 Ventricular premature depolarization; G89.29 Other chronic pain; M54.9 Dorsalgia, unspecified; F03.90 Unspecified dementia, unspecified severity, without behavioral disturbance, psychotic disturbance, mood disturbance, and anxiety; Z79.82 Long term (current) use of aspirin; Z79.899 Other long term (current) drug therapy
CPT/HCPCS: 36415; 71045; 76937; 80048; 80061; 81001; 83036; 83735; 83880; 84100; 84484; 85025; 85610; 87086; 87088; 93005; 93306; 93458; 96374; 96375; 99152; 99153; 99285; C1893; G0378; J0461; J1200; J1644; J1650; J1790; J2001; J2250; J2405; J3010; J7040; J7613; J7644; Q9966